=== PATIENT | female | born 1935 | race Caucasian/White ===

== ENCOUNTER → 2023-12-23 09:15 | Outpatient (REF) | payer MEDICARE, BC, SELFPAY | LOC: HWRAD 09:15 | PROVIDERS: ATTENDING PHYSICIAN Family Medicine | DX: M81.0 Age-related osteoporosis without current pathological fracture (principal); M85.80 Other specified disorders of bone density and structure, unspecified site | CPT/HCPCS: 77080 ==

== ENCOUNTER → 2024-02-16 12:12 | Outpatient (REF) | payer MEDICARE, BC, SELFPAY ==
[2024-02-16 13:30] LABS: % Basophils 0.7 % (0-2); % Eosinophils 2.9 % (0-6); % Immature Granulocytes 0.3 % (0-0.5); % Lymphocytes 17.8 % (20.5-51.1); % Monocytes 11.7 % (1.7-9.3); % Neutrophils 66.6 % (42.2-75.2); Absolute Eosinophils 0.2 10^3/uL (0-0.7); Absolute Monocytes 0.7 10^3/uL (0.1-0.6); Absolute Neutrophils 3.9 10^3/uL (1.4-6.5); Hemoglobin 12.6 g/dL (12.0-16.0); Mean Corp Hgb Conc. 33.2 g/dL (33.0-37.0); Mean Corpuscular Hgb 31.3 pg (27.0-31.0); Mean Corpuscular Volume 94.3 fL (81.0-99.0); Mean Platelet Volume 10.7 fL (7.4-10.4); Nucleated Red Blood Cells % 0 %; Platelet Count 175 10^3/uL (130-400); Red Blood Cell Count 4.03 10^6/uL (4.20-5.40); Red Cell Dist. Width 13.2 % (11.5-14.5); White Blood Cell Count 5.8 10^3/uL (4.8-10.8)
[2024-02-16 14:25] LABS: ALT (SGPT) 27 U/L (0-35); AST (SGOT) 33 U/L (14-36); Albumin 4.4 g/dl (3.5-5.0); Alkaline Phosphatase 43 U/L (38-126); Blood Urea Nitrogen 38 mg/dl (7-17); Calcium 9.5 mg/dl (8.4-10.2); Carbon Dioxide 29 mmol/L (22-30); Chloride 103 mmol/L (98-107); Glucose 90 mg/dl (70-99); LDH 194 U/L (120-246); Potassium 4.4 mmol/L (3.5-5.1); Sodium 138 mmol/L (135-145); Total Bilirubin 0.8 mg/dl (0.2-1.3); Total Protein 6.1 g/dl (6.3-8.2); eGFR 43.54
== END ==
LOC: REG 12:12
PROVIDERS: ATTENDING PHYSICIAN Internal Medicine Hematology & Oncology; FAMILY PHYSICIAN Family Medicine
DX: C82.58 Diffuse follicle center lymphoma, lymph nodes of multiple sites (principal); Z45.2 Encounter for adjustment and management of vascular access device
CPT/HCPCS: 36415; 80053; 83615; 85025

== ENCOUNTER → 2024-02-22 12:53 | Outpatient (REF) | payer MEDICARE, BC, SELFPAY | LOC: HWRAD 12:53 | PROVIDERS: ATTENDING PHYSICIAN Family Medicine | DX: M25.552 Pain in left hip (principal) | CPT/HCPCS: 73502 ==

== ENCOUNTER 2024-02-28 07:59 | Inpatient (IN) | payer MEDICARE, BC, SELFPAY ==
[2024-02-26] VITALS (10 sets, daily range): BP systolic 98–141; BP diastolic 51–73; BMI 21.1; BMI 21.2
--- NOTE | 2024-02-26 08:36 | ED.GENMED ---
History of Present Illness
General
Chief Complaint: Extremity Pain (non-traumatic)
Source: patient and family
Time Seen by Provider: 02/26/24 08:13
Travel History
Have you had any contact with someone who has COVID-19?: No
Do you have any symptoms of coronavirus? Fever > 100 degrees, chills, cough, shortness of breath, sore throat, loss of taste or smell, muscle aches, or headache?: No
History of Present Illness
History of Present Illness:
This patient is an 88-year-old female presents emergency department with complaints of pain in the left buttock radiating down her left leg. Her symptoms started on . She does recall on Thursday moving her leg in an unusual position to
get out of a pedicure chair but did not fall to the ground or have any specific injury or trauma and felt well and walked well after that events. However, the next day, , she had a gradual onset of discomfort in the left buttock. She
received her 'maintenance' treatment for Hodgkin's lymphoma and noted about 24 hours of shivering which then resolved fully. However, since she has the gradual onset of increasing pain that is now unmanageable. She describes feeling like
she cannot get comfortable. She denies numbness, tingling, bowel or bladder incontinence, perianal anesthesia, weakness. She notes the pain is 'dull' that will unpredictably become very very sharp. She denies nausea, vomiting, fever, chills,
chest pain, shortness of breath, redness, warmth. Patient is on a DOAC. The pain is mostly in the left buttock or hip area, but then also radiates to involve most of the entire left leg. She was seen at [facility] emergency department
yesterday, had an Ortho consult, CBC, BMP, and x-ray of hip/femur and pelvis, all of which were unremarkable.
Past History
Past History
ED Past Medical History: Arrthythmia (Atrial fib), Cancer (NonHodgkins Lymphoma) and HTN
ED Past Surgical History: Gynecological (Hysterectomy)
Social History
Tobacco: Non-smoker
Alcohol: Occasional
Drug: None
Personal:
Living: with family
Phy Exam
Physical Exam
Physical Exam:
GENERAL: Alert , in no apparent distress
EYE: pupils equal and reactive
NECK: Supple, no significant adenopathy.
ENT: o/p clr, mmm.
CARDIAC: Regular rate and rhythm .
LUNGS: Clear breath sounds bilaterally, no acute respiratory distress, no wheezes/rales/rhonchi
ABDOMEN: Soft, without focal tenderness, no r/g, no cvat
NEUROLOGICAL: Alert and oriented, no focal neuro deficits, neg slr bilat, motor 5/5 sens intact
SKIN: Warm and dry, skin intact. no redness/warmth/rash/abrasion/fluctuance/crepitus or other skin abnl noted L back/buttock/leg.
MUSCULOSKELETAL: No edema, well perfused. There is nonspecific ttp noted at L buttock and L ant thigh area, no deformity, no tissue abnl with palpation noted. Pt has FROM of hip/knee/ankle without hesitation and min discomfort.
PSYCH: Normal and appropriate interaction.
Course
Orders/Labs/Results
Orders:
Orders
02/26/24 08:34
Cardiac Monitoring- Treatment ONCE
Morphine Sulfate 4 mg IV NOW STA
02/26/24 08:59
CPK [Creatine Phosphokinase] Urgent
CRP [C-Reactive Protein] Urgent
Complete Blood Count/With Diff Urgent
Comprehensive Metabolic Panel Urgent
ESR [Erythrocyte Sed Rate] Urgent
02/26/24 09:18
Morphine Sulfate 4 mg .ROUTE .STK-MED ONE
02/26/24 09:19
Morphine Sulfate 4 mg IV NOW STA
02/26/24 09:46
CT Lower Ext W/iv Cont Lt Urgent
Comment:
Reason For Exam: attn: L hip
02/26/24 11:46
Morphine Sulfate 2 mg IV NOW STA
02/26/24 12:16
MR Lumbar Without Contrast Urgent
Comment: Patient refused MRI contrast. Therefore, it was done without contrast.
Reason For Exam: pain
Recent pill cam endoscopy?: No
02/26/24 Dinner
Regular
At Your Request: Full Participation
02/26/24 15:50
Morphine Sulfate 4 mg IV NOW STA
Prednisone [Deltasone] 50 mg PO NOW STA
02/26/24 16:31
Admit/Transfer Patient As Directed
Co-Sign Provider:
Level of Care: Observation services
Assign to:: Medical/Surgical
Physician / Group: Juan Carlos
Transfer to: Medical/Surgical
Diagnosis: LLE Radiculopathy
Patient Condition: Fair
02/26/24 16:34
Code Status As Directed
Resuscitation Status: Full Code
02/26/24 16:37
Urinalysis Stat
Date Specimen was Collected: 02/27/24
Time Specimen was Collected: 03:04
02/26/24 19:34
Acetaminophen [Tylenol] 650 mg PO Q4HPRN PRN
Bisacodyl [Dulcolax] 10 mg RECTAL [id number] PRN
Enoxaparin Sodium [Lovenox] 40 mg SC QPM
Ketorolac [Toradol] 15 mg IV Q6HPRN PRN
Ondansetron Injectable [Zofran] 4 mg IV Q6HPRN PRN
Polyethylene Glycol Powder [Miralax] 17 grams PO DAILYPRN PRN
02/26/24 19:34
Neurosurgery Consult Routine
Consulting Provider: Ana Covington
Was physician already notified: Yes
Reason for Consult: lumbar spinal stenosis
Activity As Directed
Activity Level: As Tolerated
Vital Signs As Directed
Frequency: Per unit guidelines
DX Deep Vein Thrombosis Video Routine
02/26/24 20:00
Apixaban [Eliquis] 2.5 mg PO BID
Docusate Sodium [Colace] 100 mg PO BID
02/26/24 20:10
Morphine Sulfate 4 mg IV Q4HPRN PRN
02/26/24 21:00
Flush (0.9% Sodium Chloride) [Flush (Nss)] See Dose Instructions IV PER PROTOCOL
Metoprolol [Lopressor] 12.5 mg PO BID
02/26/24 22:47
Heparin Pf [Heparin Lock Flush] 500 unit IV PRN PRN
02/27/24 03:08
Urine Microscopic Stat
Date Specimen was Collected: 02/27/24
Time Specimen was Collected: 03:04
02/27/24 06:00
OT Consult [Ot Eval And Treat] IN AM
Physical Therapy Consult [Pt Eval And Treat] IN AM
Activity Level: Ambulate
02/27/24 08:00
Amiodarone [Pacerone] 100 mg PO DAILY
Calcium Carbonate/Vitamin D3 [Oscal 500 + D] 500 mg PO DAILY
Lactobac/Bifidobac [Visbiome] 1 cap PO DAILY
MethylPREDNISolone [Medrol] 24 mg PO ONCE ONE
Potassium Chloride [KCl] 20 meq PO DAILY
Rosuvastatin Calcium [Crestor] 10 mg PO DAILY
Torsemide [Demadex] 20 mg PO DAILY
Vitamin B Complex with C [B COMPLEX w/VITAMIN C] 1 caplet PO DAILY
02/27/24 12:25
Oxycodone [Roxicodone] 5 mg PO Q4HPRN PRN
Tramadol HCl [Ultram] 50 mg PO Q6HPRN PRN
02/27/24 16:00
Acetaminophen [Tylenol] 1,000 mg PO TID
Gabapentin [Neurontin] 100 mg PO TID
02/28/24 05:15
Basic Metabolic Panel IN AM
Complete Blood Count/No Diff IN AM
02/28/24 08:00
Dexamethasone Sod Phosphate [Decadron] 4 mg IV Q6H
MethylPREDNISolone [Medrol] 20 mg PO ONCE ONE
02/29/24 05:09
Basic Metabolic Panel IN AM
Complete Blood Count/No Diff IN AM
02/29/24 08:00
MethylPREDNISolone [Medrol] 16 mg PO ONCE ONE
03/01/24 08:00
MethylPREDNISolone [Medrol] 12 mg PO ONCE ONE
03/01/24 08:03
Basic Metabolic Panel IN AM
Complete Blood Count/No Diff IN AM
03/02/24 08:00
MethylPREDNISolone [Medrol] 8 mg PO ONCE ONE
03/03/24 08:00
MethylPREDNISolone [Medrol] 4 mg PO ONCE ONE
Abnormal Lab Results
02/26/24 02/27/24 02/28/24
08:59 03:08 05:15
WBC 14.8 H 10^3/uL
(4.8-10.8)
RBC 3.78 L 10^6/uL 3.74 L 10^6/uL
(4.20-5.40) (4.20-5.40)
Hgb 11.8 L g/dL 11.6 L g/dL
(12.0-16.0) (12.0-16.0)
Hct 34.5 L % 34.9 L %
(37.0-47.0) (37.0-47.0)
MCH 31.2 H pg
(27.0-31.0)
Absolute Neuts (auto) 8.3 H 10^3/uL
(1.4-6.5)
Absolute Lymphs (auto) 0.7 L 10^3/uL
(1.2-3.4)
Absolute Monos (auto) 1.2 H 10^3/uL
(0.1-0.6)
Neutrophils % 80.9 H %
(42.2-75.2)
Lymphocytes % 6.9 L %
(20.5-51.1)
Monocytes % 11.6 H %
(1.7-9.3)
ESR 27 H mm/hour
(0-20)
Sodium 132 L mmol/L
(135-145)
BUN 21 H mg/dl 33 H mg/dl
(7-17) (7-17)
Glucose 101 H mg/dl 120 H mg/dl
(70-99) (70-99)
C-Reactive Protein 134.20 H mg/L
(0.0-10.00)
Urine Ketones 1+ A
(Negative)
Urine Occult Blood 2+ A
(Negative)
Urine RBC 7-10 A /HPF
(0-2)
Urine Bacteria Moderate A
(Negative)
02/28/24 05:15
02/28/24 05:15
Vital Signs
Initial and Last Documented VS:
Initial Vital Signs
Temp Pulse Resp BP Pulse Ox
98.3 F 85 18 131/63 99
02/26/24 07:04 02/26/24 07:04 02/26/24 07:04 02/26/24 07:04 02/26/24 07:04
Last Documented Vital Signs
Temp Pulse Resp BP Pulse Ox
98.2 F 71 18 92/53 98
03/06/24 11:26 03/06/24 11:26 03/06/24 11:26 03/06/24 11:26 03/06/24 11:26
*Critical Care Note
Total Time (30-74mins, 75-104mins- exclusive of procedures): Not Applicable
Update Note
Update Note:
Patient presents to the Emergency Department with left buttock and leg pain
Number and Complexity of Problems Addressed at the Encounter
� Chronic conditions affecting care:
� Acute Exacerbation and/or Progression of Chronic Illness:
� Differential Diagnosis includes: But not limited to pelvic/hip occult fracture, hematoma, septic arthritis, cancer related pain, etc.
Amount and/or Complexity of Data to be Reviewed and Analyzed
� I performed an independent evaluation of and my interpretation is:
EKG:
CT:1. Status post left hip arthroplasty. Evaluation somewhat limited from patient's prosthesis, however no gross/acute abnormality appreciated. No periprosthetic fractures. No large pleural effusions. No fluid collection
within the adjacent soft tissue.
2. 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 Severe central canal stenosis at L4-5.
3. Moderate amount of fluid seen within the cecum.
Xrays:
Laboratory Studies:crp/esr elevation, wbc nl
Other:mri Limited examination due to motion. Patient refused intravenous contrast.
No finding to suggest an acute fracture. Chronic compression of the superior endplate of T11.
When compared to the previous MRI from 13 years ago there has been increase in degenerative disk and joint disease as outlined above.
Please see above text for specific detail at each level.
Most significant increase in degenerative disk and joint disease is noted at L3-4 and L4-5, with moderate to severe central canal and lateral recess stenosis. Minimal impingement upon the exiting right L3 nerve root and exiting left L4 nerve root.
There is also increased anterior listhesis of L5 on S1, which in combination with increased broad-based disk bulge/protrusion and increased facet arthropathy there is spur disk in the left lateral recess which impinges upon the exiting left L5 and
descending left S1 nerve roots.
No findings to suggest paravertebral inflammation or infection. No adjacent fluid collection. No finding to suggest an abscess or acute process.
Results to Dr. Gonzales in the emergency room at 3:15 PM.
� Review of other/old records reveals: reviewed records from [facility] from yesterday, had xrays/labs.
� Clinical information was obtained by an independent historian: Daughter who is at bedside
� Prescriptions/Medications Considered but not given:
� Further testing considered but not performed:
Risk of Complications and/or Morbidity or Mortality of Patient Management
� Social determinants of health affecting care:
� Discussion with other providers (PCP, Hospitalists, Consultants, etc):
� Escalation of care including admission/observation vs risk of discharge considered: I highly doubt that patient has septic arthritis� No fever noted, she spontaneously moves her left lower extremity with ease and without
hesitation and I am able to actively range her leg without discomfort.
353 multiple reassessments here, long d/w pt and her daughter. I also d/w Dr Cole re:concern re septic arthritis given nonspec crp elevation and immunocomp but he agrees not a concern given rom, mri, location of pain, etc. He suggested LS spine
related dz as a cause, which I agree with...MR does not show osteo/diskitis, however suggestive of nerve impingement which would be very characteristic of quality location of pain etc. Pt getting partial ros with narcotics. Will not be able to
transition her to [facility] with Po meds given AC/fall risk, etc...suggest obs overnight, case managemen tin AM to consider placement, d/w hospitliast.
ED Attending Note
-
Portions of this chart may have been created with voice recognition software.� Occasional wrong word or��sound alike� substitutions may have occurred due to the inherent limitations of voice recognition software.
Discharge Plan
Departure
Patient Disposition: Admit
Date of Disposition: 02/26/24
Time of Disposition: 15:56
Admit to: Med/Surg
Admit to doctor: [place]
Presentation/result/management discussed w/ accepting MD/DO: Hospitalist
Discharge Problem:
Leg pain
Interventions
Interventions:
*General Assessment Last Done: 02/26/24 08:50
*Neglect/Abuse Screening Last Done: 02/26/24 08:50
*Nursing Disposition Last Done: 02/26/24 19:34
ED-Skin Assessment Last Done: 02/26/24 08:51
ED-Peripheral Vascular Assessment Last Done: 02/26/24 09:03
ED-Musculoskeletal Assessment Last Done: 02/26/24 08:51
Discharge Date and Time
Discharge Date/Time: 02/26/24 19:35
[2024-02-26] MEDS: MORPHINE SULFATE 4 MG IV ×4 (08:55→22:42)
[2024-02-26 09:17] LABS: % Basophils 0.2 % (0-2); % Eosinophils 0.1 % (0-6); % Immature Granulocytes 0.3 % (0-0.5); % Lymphocytes 6.9 % (20.5-51.1); % Monocytes 11.6 % (1.7-9.3); % Neutrophils 80.9 % (42.2-75.2); Absolute Lymphocytes 0.7 10^3/uL (1.2-3.4); Absolute Monocytes 1.2 10^3/uL (0.1-0.6); Absolute Neutrophils 8.3 10^3/uL (1.4-6.5); Hematocrit 34.5 % (37.0-47.0); Hemoglobin 11.8 g/dL (12.0-16.0); Mean Corp Hgb Conc. 34.2 g/dL (33.0-37.0); Mean Corpuscular Hgb 31.2 pg (27.0-31.0); Mean Corpuscular Volume 91.3 fL (81.0-99.0); Mean Platelet Volume 9.9 fL (7.4-10.4); Nucleated Red Blood Cells % 0 %; Platelet Count 202 10^3/uL (130-400); Red Blood Cell Count 3.78 10^6/uL (4.20-5.40); Red Cell Dist. Width 12.7 % (11.5-14.5); White Blood Cell Count 10.3 10^3/uL (4.8-10.8)
[2024-02-26 09:27] LABS: ALT (SGPT) 18 U/L (0-35); AST (SGOT) 21 U/L (14-36); Alkaline Phosphatase 63 U/L (38-126); Blood Urea Nitrogen 21 mg/dl (7-17); Calcium 9.5 mg/dl (8.4-10.2); Carbon Dioxide 23 mmol/L (22-30); Chloride 106 mmol/L (98-107); Creatine Phosphokinase 68 U/L (30-135); Estimated Creatinine Clearance 42 ml/min; Glucose 101 mg/dl (70-99); Potassium 4.3 mmol/L (3.5-5.1); Sodium 137 mmol/L (135-145); Total Bilirubin 0.9 mg/dl (0.2-1.3); Total Protein 6.5 g/dl (6.3-8.2); eGFR > 60.00
[2024-02-26 10:42] LABS: Erythrocyte Sed Rate 27 mm/hour (0-20)
[2024-02-26] MEDS: MORPHINE SULFATE 2 MG IV (11:57)
[2024-02-26] MEDS: DELTASONE 50 MG PO (16:08)
--- NOTE | 2024-02-26 16:41 | HPS.HSE ---
Family Physician
-
Family Physician: Maverick Jackson
Chief Complaint
-
Left Buttock and LE pain x Wed 02/16
History of Present Illness
88yo F with PMH HFpEF, Atrial Fibrillation on Eliquis, HTN, HLD, Stage IV Follicular Lymphoma, Chronic Anemia, Hx Left Hip replacement (3yrs ago [address] Monica Badillo) presents to ER from [facility] with c/o left buttock pain
radiating to LLE stopping at ankle. She states 1 week ago she was seated in a pedicure chair and upon sliding her left leg out has had severe 10/10 pain. +numbness/tingling. Denies mid back pain. Pain worse with ambulation. No loss of bowel or
bladder control. No saddle anesthesia. Denies F/C, Dizziness/LH, CP, Palps, wheezing, cough, abd pain, n/v/d/c, dysuria, calf or leg pain.
ER course: Pt presents with V.S.S. ESR 27. CRP 134. BUN/Cr 21/0.8, LFTs wnl. Lumbar MRI as below. S/P 4mg IV morphine, 2mg IV morphine, and Prednisone 50mg PO in ER.
Lumbar spine MRI:
Limited examination due to motion. Patient refused intravenous contrast.
No finding to suggest an acute fracture. Chronic compression of the superior endplate of T11.
When compared to the previous MRI from 13 years ago there has been increase in degenerative disk and joint disease as outlined above.
Please see above text for specific detail at each level.
Most significant increase in degenerative disk and joint disease is noted at L3-4 and L4-5, with moderate to severe central canal and lateral recess stenosis. Minimal impingement upon the exiting right L3 nerve root and exiting left L4 nerve root.
There is also increased anterior listhesis of L5 on S1, which in combination with increased broad-based disk bulge/protrusion and increased facet arthropathy there is spur disk in the left lateral recess which impinges upon the exiting left L5 and
descending left S1 nerve roots.
No findings to suggest paravertebral inflammation or infection. No adjacent fluid collection. No finding to suggest an abscess or acute process.
Medical History
Past Medical History
Past Medical History: Reports Other (HFpEF, Atrial Fibrillation on Eliquis, HTN, HLD, Stage IV Follicular Lymphoma, Chronic Anemia)
Past Surgical History: Reports Other (LON/BSO, Hx Left Hip replacement (3yrs ago [address] Monica Badillo))
Social History
Tobacco: Non-smoker
Alcohol: Occasional (3 glasses of wine a week)
Drug: None
Living: Assisted Living ([facility])
Family History
Family History: Other (Mother: Heart Failure, Father Throat Cancer)
Allergies / Home Medications
Allergies reflects when Allergies were last updated in [employer]Pad.
Home Medications with original date entered in [employer]Pad
Allergy/Medication List:
Allergies
Allergy/AdvReac Type Severity Reaction Status Date / Time
ciprofloxacin Allergy Unknown Unknown Verified 02/26/24 07:10
allopurinol Allergy Rash Verified 12/02/20 09:19
bendamustine [From Bendeka] Allergy Unknown Verified 02/26/24 07:09
povidone-iodine Allergy Rash Verified 12/02/20 09:19
soap Allergy Rash Verified 12/02/20 09:19
Home Medications
apixaban 2.5 mg tablet (Eliquis) 2.5 mg PO BID 12/02/20
metoprolol tartrate 25 mg tablet 12.5 mg PO BID 12/02/20
potassium chloride 20 mEq tablet,extended release(part/cryst) (Klor-Con M) 20 meq PO DAILY 12/02/20
rosuvastatin 5 mg tablet 10 mg PO DAILY 12/02/20
torsemide 20 mg tablet 20 mg PO DAILY 12/02/20
Lactobac no.2-Bifidobac no.1-S. thermo 112.5 billion cell capsule (Visbiome) 1 cap PO DAILY 02/26/24
Req-Q Womens 1 tab PO DAILY 02/26/24
Res-Q 1 cap PO DAILY 02/26/24
Uqora 1 cap PO DAILY uti 02/26/24
amiodarone 100 mg tablet 100 mg PO DAILY 02/26/24
calcium carbonate 500 mg-vitamin D3 10 mcg (400 unit) tablet (Calcium 500 + D) 1 tab PO DAILY 02/26/24
coQ10 (ubiquinol) 100 mg capsule 100 mg PO DAILY 02/26/24
ibandronate 150 mg tablet 150 mg PO QMONTH 02/26/24
ziuejzts-[id number]-zzpvz extract 5 mg-6 mg-150 mg capsule (Fruit and Vegetable Daily) 1 cap PO DAILY 02/26/24
vitamin B complex 1 tab PO DAILY 02/26/24
Review of Systems
-
A 12 point ROS was completed and negative except as noted: Yes
Physical Exam
Vital Signs
Vital Signs
Temp Pulse Resp BP Pulse Ox
98.3 F 85 16 120/60 94
02/26/24 07:04 02/26/24 13:06 02/26/24 13:06 02/26/24 16:00 02/26/24 16:00
Physical Exam
General: Well Developed, Well Nourished and No Apparent Distress
HEENT: NormoCephalic, Moist mucous membranes and Atraumatic
Respiratory: Clear
Cardiac: S1/S2 and Regular Rhythm; No Murmur or Rub
GI: Soft, Non Tender, Non Distended and Normal Bowel Sounds; No Organomegaly
Rectal: Deferred by Provider
Musculoskeletal: No Clubbing, No Cyanosis and No Edema
Skin: No Rash
Neuro: Awake, Alert, Oriented, AO x 3 and Other (MSK UE 5/5 throughout. MSK RLE 5/5. MSK LLE 3/5. +Left SLR. +TTP Left Buttock/Psoas)
Hematologic/Lymphatic: No Lymphadenopathy
Psych: Calm
Laboratory Results
-
02/26/24 08:59
02/26/24 08:59
Laboratory Results
Total Bilirubin 0.9 mg/dl (0.2-1.3) 02/26/24 08:59
AST 21 U/L (14-36) 02/26/24 08:59
ALT 18 U/L (0-35) 02/26/24 08:59
Alkaline Phosphatase 63 U/L (38-126) 02/26/24 08:59
Data Reviewed
-
Diagnostic Radiology: Image Personally Visualized and interpreted
CT Scan: Image Personally Visualized and interpreted
MRI: Image Personally Visualized and interpreted
Lab Data: Labs Reviewed by me
Old Records: Reviewed
Impression/Plan
-
Acute LLE Pain
- Sciatica vs Left Lumbar Radiculopathy. +SLR on left. CRP 134. ESR 27.
- MRI L spine:
No finding to suggest an acute fracture. Chronic compression of the superior endplate of T11.
When compared to the previous MRI from 13 years ago there has been increase in degenerative disk and joint disease as outlined above.
Please see above text for specific detail at each level.
Most significant increase in degenerative disk and joint disease is noted at L3-4 and L4-5, with moderate to severe central canal and lateral recess stenosis. Minimal impingement upon the exiting right L3 nerve root and exiting left L4 nerve root.
There is also increased anterior listhesis of L5 on S1, which in combination with increased broad-based disk bulge/protrusion and increased facet arthropathy there is spur disk in the left lateral recess which impinges upon the exiting left L5 and
descending left S1 nerve roots.
No findings to suggest paravertebral inflammation or infection. No adjacent fluid collection. No finding to suggest an abscess or acute process.
- S/P 6mg IV morphine and 50mg po prednisone in ER
- Will continue Prn Tylenol, Toradol, and 4mg IV Q4h prn morphine. Start Medrol dose pack
- Consult PT/OT
- Consult Neurosurgery for any further recs
HFpEF
- TTE 04/2023 with EF 62%, Stage II diastolic dysfunction
- Examines euvolemic
- Continue home torsemide, BB
Atrial Fibrillation
- Sinus on exam
- Continue home BB, Amiodarone, and Eliquis
HTN/HLD - BP stable on home BB/ Continue home statin.
Chronic Anemia - Hgb 11.8 g/dL. Stable. Follow trends.
Hx Stage IV Follicular Lymphoma
- Pt endorses recurrence last year. Continue management with Dr. Zee Perdomo at [facility]
DVT PPx - Lovenox
Diet - Regular
Code Status: Full
--- NOTE | 2024-02-26 16:46 | CM ---
Addendum entered by Sushma Godoy RN 02/26/24 17:15:
CM spoke with patient's son who stated that patient is able to pay out of pocket for [facility] if needed. CM discussed [place] letter and emailed to son. CM encouraged son to consider alternative SNF in the even [facility] does not have a bed
available. Son deferred that as he felt there was further work up pending.
CM will continue to follow
Original Note:
CM received call from Bernice at [facility]. Family called her regarding placement from the emergency room. CM confirmed that patient will be brought into the hospital. CM had an extended conversation with patient's daughter who was upset
regarding possible OBSERVATION status. SHe stated that patient has insurance to cover SNF stay. CM confirmed that patient had FFS Medicare and would require a three day inpatient stay for Medicare to cover patient's SNF stay.
CM confirmed that patient has been placed under observation. Patient's daughter stated that she feels CM should speak with patient's son to discuss discharge planning further. CM will await call from patient's son.
--- NOTE | 2024-02-26 20:00 | PTCARENOTE ---
Pt. admitted from [facility] AAO x 3, vs stable, call clements within reach.
[2024-02-26] MEDS: COLACE 100 MG PO (22:40)
[2024-02-26] MEDS: ELIQUIS 2.5 MG PO (22:40)
[2024-02-26] MEDS: LOPRESSOR 12.5 MG PO (22:40)
[2024-02-26] MEDS: FLUSH (NSS) 2 FLUSH IV (22:43)
[2024-02-27 03:21] LABS: Urine Albumin Trace (Neg - Trace); Urine Bilirubin Negative (Negative); Urine Character Clear (Clear); Urine Color Yellow; Urine Glucose Negative (Negative); Urine Ketone 1+ (Negative); Urine Leukocyte Negative (Negative); Urine Nitrite Negative (Negative); Urine Occult Blood 2+ (Negative); Urine Specific Gravity 1.015 (<1.030); Urine Urobilinogen Negative (Neg - 1+)
[2024-02-27 04:00] LABS: Urine Bacteria Moderate (Negative); Urine Squamous Cell 0-2 /LPF (Few)
[2024-02-27 06:00] VITALS: BMI 21.1
[2024-02-27 08:37] VITALS: BP 153/67
[2024-02-27] MEDS: DEMADEX 20 MG PO (09:27)
[2024-02-27] MEDS: CRESTOR 10 MG PO (09:27)
[2024-02-27] MEDS: B COMPLEX w/VITAMIN C 1 CAPLET PO (09:27)
[2024-02-27] MEDS: COLACE 100 MG PO ×2 (09:27→23:17)
[2024-02-27 09:31] VITALS: BP 136/59; PULSE 81
[2024-02-27] MEDS: KCL 20 MEQ PO (09:31)
[2024-02-27] MEDS: LOPRESSOR 12.5 MG PO ×2 (09:31→23:13)
[2024-02-27] MEDS: ELIQUIS 2.5 MG PO (09:31)
[2024-02-27 09:32] VITALS: BP 136/59; PULSE 81
[2024-02-27] MEDS: OSCAL 500 + D 500 MG PO (09:32)
[2024-02-27] MEDS: PACERONE 100 MG PO (09:32)
[2024-02-27] MEDS: VISBIOME 1 CAP PO (09:33)
[2024-02-27] MEDS: MEDROL 24 MG PO (09:33)
[2024-02-27] MEDS: MORPHINE SULFATE 4 MG IV (09:41)
--- NOTE | 2024-02-27 12:09 | W.PN.HOSP.TC ---
Today's Communication/Plan
-
upgrade IP status
pain control as outlined
PT/OT
Assessment / Plan
Assessment / Plan
Assessment:
Acute LLE Pain
- Sciatica vs Left Lumbar Radiculopathy. +SLR on left. CRP 134. ESR 27.
- MRI L spine: DJD, no fractures. Most significant increase in degenerative disk and joint disease is noted at L3-4 and L4-5, with moderate to severe central canal and lateral recess stenosis. Minimal impingement upon the exiting right L3 nerve
root and exiting left L4 nerve root. There is also increased anterior listhesis of L5 on S1, which in combination with increased broad-based disk bulge/protrusion and increased facet arthropathy there is spur disk in the left lateral recess which
impinges upon the exiting left L5 and descending left S1 nerve roots. No findings to suggest paravertebral inflammation or infection. No adjacent fluid collection. No finding to suggest an abscess or acute process.
- requiring many doses of IV Morphine,
- will make Tylenol standing + prn, Tramadol moderate, oxycodone severe
- add low dose gabapentin
- continue steroids
- PT/OT - SNF
- follow Neuro Surgery recs
chronic HFpEF
- TTE 04/2023 with EF 62%, Stage II diastolic dysfunction
- Examines euvolemic
- Continue home torsemide, BB
Atrial Fibrillation
- Sinus on exam
- Continue home BB, Amiodarone, and Eliquis
Essential HTN - continue BB
HLD - continue statin.
Chronic Anemia - Hgb 11.8 g/dL. Stable. Follow trends.
Hx Stage IV Follicular Lymphoma
- Pt endorses recurrence last year. Continue management with Dr. Zee Perdomo at [facility]
DVT ppx: Lovenox
Code Status: Full
Anticipated Discharge: > 48 hours
Subjective/Interval History
-
Date of Service: February 27, 2024
reports pain improving, but concerned with IV pain med usage, wants to wean off
Objective Data
-
Vital Signs:
Vital Signs
Temp Pulse Resp BP Pulse Ox
98.1 F 79 18 153/67 96
02/27/24 08:37 02/27/24 08:37 02/27/24 08:37 02/27/24 08:37 02/27/24 08:37
I&O
02/26/24 02/27/24 02/28/24
06:59 06:59 06:59
Intake Total 480 / 480
Output Total 50 / 50
Balance 430 / 430
Physical Exam
-
General: No Apparent Distress
HEENT: Normocephalic and Atraumatic
Respiratory: Negative Wheezes or Rales
Cardiac: Regular Rhythm and S1/S2
GI: Soft and Nontender
Genito-urinary: No Costovertebral Tender
Musculoskeletal: No Edema
Neuro: AO x 3 and Other (+Left SLR. +TTP Left Buttock/Psoas)
Psych: Calm
Data Reviewed
-
Total Time Spent with Patient (in minutes): 44
Labs: Labs Reviewed by me
[2024-02-27 13:59] VITALS: BMI 21.1
[2024-02-27 15:00] VITALS: BP 139/67
[2024-02-27] MEDS: NEURONTIN 100 MG PO ×2 (15:09→23:14)
[2024-02-27] MEDS: TYLENOL 1000 MG PO ×2 (15:09→23:13)
[2024-02-27 16:07] VITALS: BP 139/67
--- NOTE | 2024-02-27 17:24 | CON.NS ---
Consultation
-
Date/Time Consultation Performed: 02/27/2024; 17:30
Performing Provider: Adria
Chief Complaint
History of Present Illness
This is an 88-year-old female with a past medical history of heart failure, atrial fibrillation on Eliquis, hypertension, stage IV follicular lymphoma, who presents from her assisted living facility with acute onset of left buttock pain, left lower
extremity radiculopathy. She reports that it stated 1 week prior when she was trying to get up from a pedicure chair. She reports numbness and tingling in the same distribution. She denies any obvious weakness. She denies any bowel or bladder
changes, or saddle anesthesia.
Review of Systems
-
10 point review of systems including constitutional, ENT, cardiovascular, respiratory, GI, , endocrinologic, hematologic, neurologic, psychiatric, musculoskeletal was reviewed, and was otherwise negative, except for stated in HPI.
Medication and Allergies
Home Medications
Home Medications
�Medication �Instructions �Recorded
apixaban 2.5 mg tablet (Eliquis) 2.5 mg PO BID Blood Clot 12/02/20
Prevention/Tx
metoprolol tartrate 25 mg tablet 12.5 mg PO BID Blood Pressure 12/02/20
potassium chloride 20 mEq 20 meq PO DAILY Electrolyte 12/02/20
tablet,extended Repletion
release(part/cryst) (Klor-Con M)
rosuvastatin 5 mg tablet 10 mg PO DAILY High Cholesterol 12/02/20
torsemide 20 mg tablet 20 mg PO DAILY Fluid 12/02/20
Retention/Swelling
Lactobac no.2-Bifidobac no.1-S. 1 cap PO DAILY probiotic 02/26/24
thermo 112.5 billion cell capsule
(Visbiome)
Req-Q Womens 1 tab PO DAILY Supplement 02/26/24
Res-Q 1 cap PO DAILY Supplement 02/26/24
Uqora 1 cap PO DAILY urinary tract health 02/26/24
amiodarone 100 mg tablet 100 mg PO DAILY Arrhythmia 02/26/24
calcium carbonate 500 mg-vitamin 1 tab PO DAILY Supplement 02/26/24
D3 10 mcg (400 unit) tablet
(Calcium 500 + D)
coQ10 (ubiquinol) 100 mg capsule 100 mg PO DAILY Supplement 02/26/24
ibandronate 150 mg tablet 150 mg PO QMONTH osteoporosis 02/26/24
iizpwifz-vpqykw-grqqb extract 5 1 cap PO DAILY Supplement 02/26/24
mg-6 mg-150 mg capsule (Fruit and
Vegetable Daily)
vitamin B complex 1 tab PO DAILY Supplement 02/26/24
Allergies
Allergies
Allergy/AdvReac Type Severity Reaction Status Date / Time
allopurinol Allergy Rash Verified 12/02/20 09:19
bendamustine [From Bendeka] Allergy Unknown Verified 02/26/24 07:09
ciprofloxacin Allergy Unknown Verified 02/26/24 20:04
povidone-iodine Allergy Rash Verified 12/02/20 09:19
soap Allergy Rash Verified 12/02/20 09:19
Physical Exam
-
Exam:
Awake, alert, no apparent distress
Cranial nerves II to XII are grossly intact
Motor: 5/5 strength in bilateral upper extremities, no pronator drift. 3/5 strength in left EHL, otherwise full strength in lower extremities in all other muscle groups.
Head is normocephalic atraumatic.
Neck is supple.
Breathing nonlabored.
Pulses palpable.
Abdomen nondistended nontender.
Gait: Antalgic gait, ambulates with walker.
MRI of the lumbar spine performed on 02/26/2024 was reviewed. At L5-S1, there is evidence of cysts soft tissue noted within the left L5-S1 neuroforamen/lateral recess. This appears to be T2 hypointense. Differential diagnosis may be disc
extrusion/herniation versus synovial cyst?
Problems
-
Problem Status Onset Code
Leg pain M79.606
Assessment / Plan
-
This is an 88-year-old female who presents with over 1 week history of acute onset of left lower extremity radiculopathy. On my review of the MRI of the lumbar spine, there is evidence of a soft tissue within the left L5-S1 Lateral recess,
suspicious for disc extrusion/synovial cyst. Radiology has been contacted for further review of this.
I reviewed management options with her. This included ongoing conservative treatment by means of pain control, anti-inflammatories, physical therapy, possible epidural steroid injections. Lastly, I also discussed surgical intervention, by means of
left L5-S1 hemilaminectomy/foraminotomy for decompression of nerve root. Given her left EHL weakness, this is reasonable as well, provide she is able to get cleared medically/cardiac.
She expresses interest in surgical intervention, but would like to discuss first with her family. In the interim, recommend dexamethasone 4 mg every 6 hours x 24 hours to see if this will improve her symptoms.
Discussed with hospital medicine.
Patient can go home per my specialty: No
[2024-02-27 23:32] VITALS: BP 114/59
[2024-02-28] MEDS: ROXICODONE 5 MG PO (02:02)
[2024-02-28 05:36] LABS: Hematocrit 34.9 % (37.0-47.0); Hemoglobin 11.6 g/dL (12.0-16.0); Mean Corp Hgb Conc. 33.2 g/dL (33.0-37.0); Mean Corpuscular Volume 93.3 fL (81.0-99.0); Mean Platelet Volume 9.7 fL (7.4-10.4); Platelet Count 209 10^3/uL (130-400); Red Blood Cell Count 3.74 10^6/uL (4.20-5.40); Red Cell Dist. Width 12.6 % (11.5-14.5); White Blood Cell Count 14.8 10^3/uL (4.8-10.8)
[2024-02-28 05:47] VITALS: BMI 21.1
[2024-02-28 06:18] LABS: Blood Urea Nitrogen 33 mg/dl (7-17); Calcium 9.2 mg/dl (8.4-10.2); Carbon Dioxide 28 mmol/L (22-30); Chloride 99 mmol/L (98-107); Estimated Creatinine Clearance 34 ml/min; Glucose 120 mg/dl (70-99); Potassium 4.3 mmol/L (3.5-5.1); Sodium 132 mmol/L (135-145); eGFR 54.19
[2024-02-28 07:18] VITALS: BP 147/74
[2024-02-28] MEDS: COLACE 100 MG PO ×2 (09:08→20:42)
[2024-02-28] MEDS: B COMPLEX w/VITAMIN C 1 CAPLET PO (09:08)
[2024-02-28] MEDS: KCL 20 MEQ PO (09:09)
[2024-02-28] MEDS: DECADRON 4 MG IV ×3 (09:09→20:42)
[2024-02-28] MEDS: NEURONTIN 100 MG PO ×3 (09:09→22:19)
[2024-02-28] MEDS: CRESTOR 10 MG PO (09:09)
[2024-02-28] MEDS: DEMADEX 20 MG PO (09:09)
[2024-02-28] MEDS: LOPRESSOR 12.5 MG PO ×2 (09:09→20:41)
[2024-02-28] MEDS: PACERONE 100 MG PO (09:10)
[2024-02-28] MEDS: VISBIOME 1 CAP PO (09:10)
[2024-02-28] MEDS: OSCAL 500 + D 500 MG PO (09:10)
[2024-02-28] MEDS: TYLENOL 1000 MG PO ×3 (09:10→22:19)
[2024-02-28] MEDS: MIRALAX 17 GRAMS PO (11:45)
--- NOTE | 2024-02-28 13:20 | W.PN.HOSP.TC ---
Today's Communication/Plan
-
Onc and Cards evals routinely Thursday for pre-op eval
tentative OR Thursday pending OR availability, d/w Dr. Covington
Assessment / Plan
Assessment / Plan
Assessment:
Acute LLE Pain
- Sciatica vs Left Lumbar Radiculopathy. +SLR on left. CRP 134. ESR 27.
- MRI L spine: DJD, no fractures. Most significant increase in degenerative disk and joint disease is noted at L3-4 and L4-5, with moderate to severe central canal and lateral recess stenosis. Minimal impingement upon the exiting right L3 nerve
root and exiting left L4 nerve root. There is also increased anterior listhesis of L5 on S1, which in combination with increased broad-based disk bulge/protrusion and increased facet arthropathy there is spur disk in the left lateral recess which
impinges upon the exiting left L5 and descending left S1 nerve roots. No findings to suggest paravertebral inflammation or infection. No adjacent fluid collection. No finding to suggest an abscess or acute process.
- requiring many doses of IV Morphine,
- will make Tylenol standing + prn, Tramadol moderate, oxycodone severe
- add low dose gabapentin
- continue steroids
- PT/OT - SNF
- patient agrees for surgical intervention - left L5-S1 hemilaminectomy/foraminotomy for decompression of nerve root - earliest date Thursday
chronic HFpEF
Atrial Fibrillation
- TTE 04/2023 with EF 62%, Stage II diastolic dysfunction
- Examines euvolemic. sinus on tele
- Continue home torsemide, BB, Amio
- holding Eliquis
- CBC cards consult for pre-op assessment
Essential HTN - continue BB
HLD - continue statin.
Chronic Anemia - Hgb 11.8 g/dL. Stable. Follow trends.
Hx Stage IV Follicular Lymphoma
- Pt endorses recurrence last year. Continue management with Dr. Zee Perdomo at [facility]
- Neuro Sx requesting onc eval for pre-op assessment.
DVT ppx: Lovenox
Code Status: Full
Anticipated Discharge: > 48 hours
Subjective/Interval History
-
Date of Service: February 28, 2024
pain controlled with IV steroids, pain meds, Neurontin
has agreed to surgery
Objective Data
-
Labs:
Laboratory Results
02/28/24
05:15
WBC 14.8 H
Hgb 11.6 L
Hct 34.9 L
Plt Count 209
Sodium 132 L
Potassium 4.3
Chloride 99
Carbon Dioxide 28
BUN 33 H
Creatinine 1.0
Glucose 120 H
Calcium 9.2
Vital Signs:
Vital Signs
Temp Pulse Resp BP Pulse Ox
99.4 F 100 24 147/74 93
02/28/24 07:18 02/28/24 07:18 02/28/24 07:18 02/28/24 07:18 02/28/24 09:00
I&O
02/27/24 02/28/24 02/29/24
06:59 06:59 06:59
Intake Total 480 / 480 1440 / 1440
Output Total 50 / 50
Balance 430 / 430 1440 / 1440
Physical Exam
-
General: No Apparent Distress
HEENT: Normocephalic and Atraumatic
Respiratory: Negative Wheezes or Rales
Cardiac: Regular Rhythm and S1/S2
GI: Soft and Nontender
Neuro: AO x 3
Psych: Calm
Data Reviewed
-
Total Time Spent with Patient (in minutes): 42
Labs: Labs Reviewed by me
[2024-02-28 15:10] VITALS: BP 126/88
[2024-02-28 22:30] VITALS: BP 119/71
[2024-02-29] VITALS (7 sets, daily range): BP systolic 100–151; BP diastolic 57–81; PULSE 65–70; O2SAT 95–97; BMI 21.0
[2024-02-29] MEDS: DECADRON 4 MG IV (02:12)
[2024-02-29 05:20] LABS: Hematocrit 35.5 % (37.0-47.0); Hemoglobin 11.9 g/dL (12.0-16.0); Mean Corp Hgb Conc. 33.5 g/dL (33.0-37.0); Mean Corpuscular Hgb 31.2 pg (27.0-31.0); Mean Corpuscular Volume 93.2 fL (81.0-99.0); Mean Platelet Volume 10.1 fL (7.4-10.4); Platelet Count 214 10^3/uL (130-400); Red Blood Cell Count 3.81 10^6/uL (4.20-5.40); Red Cell Dist. Width 12.4 % (11.5-14.5); White Blood Cell Count 15.3 10^3/uL (4.8-10.8)
[2024-02-29 06:01] LABS: Blood Urea Nitrogen 36 mg/dl (7-17); Calcium 9.2 mg/dl (8.4-10.2); Carbon Dioxide 25 mmol/L (22-30); Chloride 100 mmol/L (98-107); Estimated Creatinine Clearance 37 ml/min; Glucose 151 mg/dl (70-99); Potassium 4.8 mmol/L (3.5-5.1); Sodium 133 mmol/L (135-145); eGFR > 60.00
[2024-02-29] MEDS: CRESTOR 10 MG PO (09:00)
[2024-02-29] MEDS: B COMPLEX w/VITAMIN C 1 CAPLET PO (09:00)
[2024-02-29] MEDS: DEMADEX 20 MG PO (09:00)
[2024-02-29] MEDS: KCL 20 MEQ PO (09:00)
[2024-02-29] MEDS: COLACE 100 MG PO ×2 (09:00→20:59)
[2024-02-29] MEDS: OSCAL 500 + D 500 MG PO (09:01)
[2024-02-29] MEDS: PACERONE 100 MG PO (09:01)
[2024-02-29] MEDS: LOPRESSOR 12.5 MG PO ×2 (09:01→20:59)
[2024-02-29] MEDS: NEURONTIN 100 MG PO ×3 (09:01→20:59)
[2024-02-29] MEDS: MIRALAX 17 GRAMS PO (09:02)
[2024-02-29] MEDS: VISBIOME 1 CAP PO (09:02)
[2024-02-29] MEDS: TYLENOL 1000 MG PO ×3 (09:02→20:59)
[2024-02-29] MEDS: DECADRON 2 MG IV ×2 (09:02→17:06)
--- NOTE | 2024-02-29 10:22 | CON.CAR ---
Consultation
Consultation Request
Date/Time Consultation Requested: 02/29/24, 8am
Date/Time Consultation Performed: 02/29/24, 9am
Requesting Provider: Pedro
Performing Provider: Janice
Reason for Consultation: pre op assessement
Medical History
-
Chief Complaint: severe LLE pain
History of Present Illness:
88 yo female with PMH of mitral regurgitation, chonic HFPEF, paroxysmal A fib on eliquis, 1st degree, iRBBB, hyperlipidemia, follicular lymphoma on mini R-CHOP (active therapy) is admitted with severe LLE pain.
We are consulted for pre-op risk assessment for left L5-S1 hemilaminectomy/foraminotomy for decompression of nerve root.
She is a very active and independent 88yo, who looks much younger that her age. Prior to issues with leg pain, she was doing yoga, walking without limitation, and up to 3 flights of stairs without CP/SOB.
She denies edema, dizziness, syncope, palps.
Past Medical History
Past Medical History: Arrhythmias (paroxyxmal A fib), Cancer (follicular lymphoma), CHF (chronic HFPEF), Hypercholesterolemia, Valvular Disease (mitral regurgitation) and Other (1st degree AVB, iRBBB)
Past Surgical History: Gynecological (hysterectomy)
Social History
Tobacco: Non-Smoker
Family History
Family History: CAD (mother)
Allergies / Home Medications
Allergy/AdvReac Type Severity Reaction Status Date / Time
allopurinol Allergy Rash Verified 12/02/20 09:19
bendamustine [From Bendeka] Allergy Unknown Verified 02/26/24 07:09
ciprofloxacin Allergy Unknown Verified 02/26/24 20:04
povidone-iodine Allergy Rash Verified 12/02/20 09:19
soap Allergy Rash Verified 12/02/20 09:19
�Medication �Instructions �Recorded �Confirmed �Type
apixaban 2.5 mg tablet (Eliquis) 2.5 mg PO BID Blood Clot 12/02/20 02/26/24 History
Prevention/Tx
metoprolol tartrate 25 mg tablet 12.5 mg PO BID Blood Pressure 12/02/20 02/26/24 History
potassium chloride 20 mEq 20 meq PO DAILY Electrolyte 12/02/20 02/26/24 History
tablet,extended Repletion
release(part/cryst) (Klor-Con M)
rosuvastatin 5 mg tablet 10 mg PO DAILY High Cholesterol 12/02/20 02/26/24 History
torsemide 20 mg tablet 20 mg PO DAILY Fluid 12/02/20 02/26/24 History
Retention/Swelling
Lactobac no.2-Bifidobac no.1-S. 1 cap PO DAILY probiotic 02/26/24 02/26/24 History
thermo 112.5 billion cell capsule
(Visbiome)
Req-Q Womens 1 tab PO DAILY Supplement 02/26/24 02/26/24 History
Res-Q 1 cap PO DAILY Supplement 02/26/24 02/26/24 History
Uqora 1 cap PO DAILY urinary tract health 02/26/24 02/26/24 History
amiodarone 100 mg tablet 100 mg PO DAILY Arrhythmia 02/26/24 02/26/24 History
calcium carbonate 500 mg-vitamin 1 tab PO DAILY Supplement 02/26/24 02/26/24 History
D3 10 mcg (400 unit) tablet
(Calcium 500 + D)
coQ10 (ubiquinol) 100 mg capsule 100 mg PO DAILY Supplement 02/26/24 02/26/24 History
ibandronate 150 mg tablet 150 mg PO QMONTH osteoporosis 02/26/24 02/26/24 History
tzsezmow-hzncpt-axmts extract 5 1 cap PO DAILY Supplement 02/26/24 02/26/24 History
mg-6 mg-150 mg capsule (Fruit and
Vegetable Daily)
vitamin B complex 1 tab PO DAILY Supplement 02/26/24 02/26/24 History
Review of Systems
-
History Source: Patient
All other systems: Negative unless noted
Musculoskeletal: Other (LLE pain)
Physical Exam
Vital Signs
Temp Pulse Resp BP Pulse Ox
98.1 F 79 16 122/67 95
02/29/24 07:30 02/29/24 07:30 02/29/24 07:30 02/29/24 07:30 02/29/24 07:30
Lab Results
02/29/24 05:09
02/29/24 05:09
Physical Exam
General: No Apparent Distress and Comfortable
HEENT: Normocephalic and Anicteric
Respiratory: Clear and Non Labored Respirations
Cardiac: S1/S2 (normal), Regular Rhythm, Murmur (II/IV systolic at apex) and Peripheral Edema (none)
Breast: Deferred by me
GI: Soft, Non Tender and Non Distended
Rectal: Deferred by Provider
Musculoskeletal: No Clubbing, No Cyanosis and No Edema
Skin: Warm and Dry
Neuro: AO x 3
Psych: Calm
Impression / Plan
-
88 yo female with PMH of mitral regurgitation, chonic HFPEF, paroxysmal A fib on eliquis, 1st degree, iRBBB, hyperlipidemia, follicular lymphoma on mini R-CHOP (active therapy) is admitted with severe LLE pain.
We are consulted for pre-op risk assessment for left L5-S1 hemilaminectomy/foraminotomy for decompression of nerve root.
#Pre-op risk assessment
-She is a very active and independent 88yo, who looks much younger that her age. Prior to issues with leg pain, she was doing yoga, walking without limitation, and up to 3 flights of stairs without CP/SOB.
-echo 09/28/23: EF 60-65%, GLS-19.9%, mild/moderate MR, nl RV, moderate TR
-NSQIP: risk of cardiac complication or is 0.3% (acceptable)
-I am not recommending a stress test prior to OR
-elqiuis is on hold and can be resumed as soon as safe post op; continue metoprolol without interruption
-we will see her again post op
# Paroxysmal A fib
-in sinus (with 1st degree AVB, iRBBB) on amiodarone 100mg daily, and metoprolol tartrate 12.5mg bid
-CHADS2-VASC = 4. Eliquis on hold for OR.
-monitor on tele
# Chronic HFPEF
-stable, euvolemic
-cont torsemide 20mg daily
# Mitral regurgitation
-severe in past, and now on diuretic, with last echo showing mild/moderate MR
# Hyperlipidemia
-stable, continue crestor
# Follicular lymphoma
-mini R-CHOP (active therapy)
-port in place
-normal LVEF and GLS on echo 09/2023
Data Reviewed
-
EKG: Tracing Personally Visualized and interpreted (NSR, 1st degree AVB, iRBBB)
Medical Tests (Nuc Med, Echo etc): Report Reviewed by me (echo per note) and Discussed with Patient
Labs: Labs Reviewed by me
--- NOTE | 2024-02-29 10:36 | CON.ONC ---
Impression
Impression
Hx follicular lymphoma with relapse 04/2023, now s/p R-mini-CHOP, continuing on maintenance Rituxan
Elevated CRP
Leukocytosis attributable to steroids (WBC normal on 02/15)
Afib on Eliquis
Plan
Plan
She does not have the elevated lymphocyte count that has previously been a feature of disease recurrence.
However, with recent night sweats and CRP elevation noted, recommend CT C/A/P now to exclude disease progression.
Thank you for consult, will follow along with you.
Patient History
History of Present Illness
88 yo woman well known to me from outpt setting for history of follicular lymphoma. She was treated in 2017 with Bendeka/Rituxan followed by 2 years' maintenance Rituxan. She relapsed this past summer with marked lymphocytosis, night sweats and
significant progression on scan. She was treated with R-mini-CHOP from April-August 2023 with restaging PET 09/29/23 showing improved disease. She got maintenance Rituxan 11/26 and 02/17. About a week after most recent Rituxan she noted onset of
severe back pain with imaging showing significant degenerative disease. Surgery is planned with routine Heme/Onc clearance requested. Labs this admission include CRP of 134 representing marked elevation. She admits to night sweats last week and
earlier this week. Denies swollen glands, fatigue, malaise, unintentional weight loss, loss of appetite. Separately, she is on Eliquis 2.5 BID for afib, no DVT/PE history.
Past-Medical/Surgical History
PMHx:
Follicular lymphoma
Afib
PSHx:
Port
LON/BSO 1984
Patient Medication
�Medication �Instructions �Recorded �Confirmed �Last Taken �Type
apixaban 2.5 mg tablet (Eliquis) 2.5 mg PO BID Blood Clot 12/02/20 02/26/24 02/26/24 History
Prevention/Tx
metoprolol tartrate 25 mg tablet 12.5 mg PO BID Blood Pressure 12/02/20 02/26/24 02/26/24 History
potassium chloride 20 mEq 20 meq PO DAILY Electrolyte 12/02/20 02/26/24 02/26/24 History
tablet,extended Repletion
release(part/cryst) (Klor-Con M)
rosuvastatin 5 mg tablet 10 mg PO DAILY High Cholesterol 12/02/20 02/26/24 02/26/24 History
torsemide 20 mg tablet 20 mg PO DAILY Fluid 12/02/20 02/26/24 02/25/24 History
Retention/Swelling
Lactobac no.2-Bifidobac no.1-S. 1 cap PO DAILY probiotic 02/26/24 02/26/24 Unknown History
thermo 112.5 billion cell capsule
(Visbiome)
Req-Q Womens 1 tab PO DAILY Supplement 02/26/24 02/26/24 Unknown History
Res-Q 1 cap PO DAILY Supplement 02/26/24 02/26/24 Unknown History
Uqora 1 cap PO DAILY urinary tract health 02/26/24 02/26/24 Unknown History
amiodarone 100 mg tablet 100 mg PO DAILY Arrhythmia 02/26/24 02/26/24 02/26/24 History
calcium carbonate 500 mg-vitamin 1 tab PO DAILY Supplement 02/26/24 02/26/24 Unknown History
D3 10 mcg (400 unit) tablet
(Calcium 500 + D)
coQ10 (ubiquinol) 100 mg capsule 100 mg PO DAILY Supplement 02/26/24 02/26/24 Unknown History
ibandronate 150 mg tablet 150 mg PO QMONTH osteoporosis 02/26/24 02/26/24 Unknown History
lafhfbdp-obcrku-whkwh extract 5 1 cap PO DAILY Supplement 02/26/24 02/26/24 Unknown History
mg-6 mg-150 mg capsule (Fruit and
Vegetable Daily)
vitamin B complex 1 tab PO DAILY Supplement 02/26/24 02/26/24 Unknown History
Active Medications
Generic Name Dose Route Start Last Admin
Trade Name Freq PRN Reason Stop Dose Admin
Acetaminophen 650 mg 02/26/24 19:34
Acetaminophen 325 Mg Tablet PO 03/25/24 19:33
Q4HPRN PRN
mild pain/FISCHER/temp> 100.4F
Acetaminophen 1,000 mg 02/27/24 16:00 02/29/24 09:02
Acetaminophen 500 Mg Tablet PO 03/26/24 15:59 1,000 mg
TID MEGHANN Administration
Amiodarone HCl 100 mg 02/27/24 08:00 02/29/24 09:01
Amiodarone 100 Mg Tablet PO 03/26/24 07:59 100 mg
DAILY MEGHANN Administration
Apixaban 2.5 mg 02/26/24 20:00 02/27/24 09:31
Apixaban (Eliquis) 2.5 Mg Tablet PO 03/25/24 19:59 2.5 mg
BID MEGHANN Administration
Bisacodyl 10 mg 02/26/24 19:34
Bisacodyl 10 Mg Rectal Suppository RECTAL 03/25/24 19:33
[id number] PRN
constipation
Calcium/Vitamin D 500 mg 02/27/24 08:00 02/29/24 09:01
Calcium Carbonate 500 Mg/Vitamin D 5 Mcg (200 Units) Tablet PO 03/26/24 07:59 500 mg
DAILY MEGHANN Administration
Dexamethasone Sodium Phosphate 2 mg 02/29/24 10:00 02/29/24 09:02
Dexamethasone 4 Mg/Ml 1 Ml Vial IV 03/28/24 09:59 2 mg
Q8H MEGHANN Administration
Docusate Sodium 100 mg 02/26/24 20:00 02/29/24 09:00
Docusate Sodium 100 Mg Capsule PO 03/25/24 19:59 100 mg
BID MEGHANN Administration
Gabapentin 100 mg 02/27/24 16:00 02/29/24 09:01
Gabapentin 100 Mg Capsule PO 03/26/24 15:59 100 mg
TID MEGHANN Administration
Heparin Sodium (Porcine) 500 unit 02/26/24 22:47 04/15/24 09:02
Heparin Flush Pf (100 Unit/Ml) 5 Ml Syringe IV 03/25/24 22:46 500 unit
PRN PRN Administration
PORT FLUSH
Lactobacillus/Bifidobacterium 1 cap 02/27/24 08:00 02/29/24 09:02
Lactobac/Bifidobac (Visbiome) PO 03/26/24 07:59 1 cap
DAILY MEGHANN Administration
Metoprolol Tartrate 12.5 mg 02/26/24 21:00 02/29/24 09:01
Metoprolol 12.5 Mg Regular Release Dose (1/2 Of 25 Mg Tablet) PO 03/25/24 20:59 12.5 mg
BID MEGHANN Administration
Ondansetron HCl 4 mg 02/26/24 19:34
Ondansetron 4 Mg/2 Ml Vial IV 03/25/24 19:33
Q6HPRN PRN
nausea and vomiting
Oxycodone HCl 5 mg 02/27/24 12:25 02/28/24 02:02
Oxycodone 5 Mg Regular Release Tablet PO 03/12/24 12:24 5 mg
Q4HPRN PRN Administration
severe pain
Polyethylene Glycol 17 grams 02/26/24 19:34 02/29/24 09:02
Polyethylene Glycol Powder 17 Grams Packet PO 03/25/24 19:33 17 grams
DAILYPRN PRN Administration
constipation
Potassium Chloride 20 meq 02/27/24 08:00 02/29/24 09:00
Potassium Chloride 20 Meq Extended Release Tablet PO 03/26/24 07:59 20 meq
DAILY MEGHANN Administration
Rosuvastatin Calcium 10 mg 02/27/24 08:00 02/29/24 09:00
Rosuvastatin (Crestor) 5 Mg Tablet PO 03/26/24 07:59 10 mg
DAILY MEGHANN Administration
Sodium Chloride 0 flush 02/26/24 21:00 02/26/24 22:43
Sodium Chloride 0.9% (Flush) Syringe IV 03/25/24 20:59 2 flush
PER PROTOCOL MEGHANN Administration
Torsemide 20 mg 02/27/24 08:00 02/29/24 09:00
Torsemide 20 Mg Tablet PO 03/26/24 07:59 20 mg
DAILY MEGHANN Administration
Tramadol HCl 50 mg 02/27/24 12:25
Tramadol Hcl 50 Mg Tablet PO 03/26/24 12:24
Q6HPRN PRN
moderate pain
Vitamin B Complex/Vitamin C 1 caplet 02/27/24 08:00 02/29/24 09:00
Vitamin B Complex With Vitamin C Caplet PO 03/26/24 07:59 1 caplet
DAILY MEGHANN Administration
Review of Systems
-
History Source: Patient, Physician and Records
Constitutional: Reports Night Sweats; Denies Fever, Weight Loss or Fatigue
EENT: Reports No Symptoms
Respiratory: Reports No Symptoms
Cardiac: Reports No Symptoms
GI: Reports No Symptoms
Breast: Reports No Symptoms
: Reports No Symptoms
Musculoskeletal: Reports Other (Back pain)
Skin: Reports No Symptoms
Endocrine: Reports No Symptoms
Hematologic/Lymphatic: Reports No Symptoms
Allergy / Immunology: Reports No Symptoms
Psych: Reports No Symptoms
Physical Exam
-
General: Well Developed, Well Nourished and Other (Appears young for stated age)
HEENT: Moist Mucous Membranes; Negative Jaundice
Cardiology: Normal Sinus Rhythm, S1 and S2
Pulmonary: Clear; Negative Wheezes
GI: Soft and Normal Bowel Sounds
Musculoskeletal: No Clubbing, No Cyanosis and No Edema
Extremities: No C/C/E; Negative Edema
Neurology: Non Focal
Skin: Warm and Dry
Hematologic / Lymphatic: No Lymphadenopathy and No Petechiae
Psych: Calm and Intact Judgement/Insight
Labs
Lab Results
WBC 15.3 10^3/uL (4.8-10.8) H 02/29/24 05:09
RBC 3.81 10^6/uL (4.20-5.40) L 02/29/24 05:09
Hgb 11.9 g/dL (12.0-16.0) L 02/29/24 05:09
Hct 35.5 % (37.0-47.0) L 02/29/24 05:09
MCV 93.2 fL (81.0-99.0) 02/29/24 05:09
MCH 31.2 pg (27.0-31.0) H 02/29/24 05:09
MCHC 33.5 g/dL (33.0-37.0) 02/29/24 05:09
RDW 12.4 % (11.5-14.5) 02/29/24 05:09
Plt Count 214 10^3/uL (130-400) 02/29/24 05:09
MPV 10.1 fL (7.4-10.4) 02/29/24 05:09
Abs Immat Gran (auto) 0.0 10^3/uL (0-0.05) 02/26/24 08:59
Absolute Neuts (auto) 8.3 10^3/uL (1.4-6.5) H 02/26/24 08:59
Absolute Lymphs (auto) 0.7 10^3/uL (1.2-3.4) L 02/26/24 08:59
Absolute Monos (auto) 1.2 10^3/uL (0.1-0.6) H 02/26/24 08:59
Absolute Eos (auto) 0.0 10^3/uL (0-0.7) 02/26/24 08:59
Absolute Basos (auto) 0.0 10^3/uL (0-0.2) 02/26/24 08:59
Immature Gran % 0.3 % (0-0.5) 02/26/24 08:59
Neutrophils % 80.9 % (42.2-75.2) H 02/26/24 08:59
Lymphocytes % 6.9 % (20.5-51.1) L 02/26/24 08:59
Monocytes % 11.6 % (1.7-9.3) H 02/26/24 08:59
Eosinophils % 0.1 % (0-6) 02/26/24 08:59
Basophils % 0.2 % (0-2) 02/26/24 08:59
Creatinine 0.9 mg/dL (0.6-1.0) 02/29/24 05:09
Vital Signs
Vital Signs
Temp Pulse Resp BP Pulse Ox
98.1 F 79 16 122/67 95
02/29/24 07:30 02/29/24 07:30 02/29/24 07:30 02/29/24 07:30 02/29/24 09:00
--- NOTE | 2024-02-29 10:58 | PN.NS ---
Subjective
-
Patient seen examined. Reports that the steroids has only minimally helped with her left lower extremity pain. She is interested in proceeding with surgical intervention for
Physical Exam
-
Exam:
Exam:
Awake, alert, no apparent distress
Cranial nerves II to XII are grossly intact
Motor: 5/5 strength in bilateral upper extremities, no pronator drift. 3/5 strength in left EHL, otherwise full strength in lower extremities in all other muscle groups.
Head is normocephalic atraumatic.
Neck is supple.
Breathing nonlabored.
Pulses palpable.
Abdomen nondistended nontender.
Gait: Antalgic gait, ambulates with walker.
MRI of the lumbar spine performed on 02/26/2024 was reviewed. At L5-S1, there is evidence of cysts soft tissue noted within the left L5-S1 neuroforamen/lateral recess. This appears to be T2 hypointense. Differential diagnosis may be disc
extrusion/herniation versus synovial cyst? Imaging was reviewed with radiology, Dr. Wero Chen, on 02/27/2024 who reviewed the MRI scan, does concur that findings at the left L5-S1 neuroforamen can be consistent with disc extrusion/sequestered
disc versus synovial cyst less likely.
Problems
-
Problem Status Onset Code
Leg pain M79.606
Assessment / Plan
-
This is an 88-year-old female who presents with over 1 week history of acute onset of left lower extremity radiculopathy. On my review of the MRI of the lumbar spine, there is evidence of a soft tissue within the left L5-S1 Lateral recess,
suspicious for disc extrusion/synovial cyst. Radiologist on-call reviewed the imaging studies, and they concur with my imaging findings.
She wishes to proceed with surgical intervention by means of left L5-S1 Jacques laminectomy/foraminotomy for decompression of left L5-S1 nerve root. Reviewed the imaging with radiology, Dr. Chen, who concurs with my review and findings.
I discussed with her that likely surgery has been preemptively scheduled for 03/02/2024. Cardiology clearance appreciated.
Patient reports that she is also been having night sweats, which in the past has been consistent with disease recurrence. She informs me that her oncologist, Dr. Perdomo, has ordered a CT of the abdomen pelvis to further evaluate. Appreciate
oncology clearance/input.
Discussed with hospital medicine.
Patient can go home per my specialty: No
Today's Communication
-
Discussed with hospital medicine
--- NOTE | 2024-02-29 12:14 | W.PN.HOSP.TC ---
Today's Communication/Plan
-
continue IV steroids
CT per Onc
monitor tele
OR Thursday planned
Assessment / Plan
Assessment / Plan
Assessment:
Acute LLE Pain
- Sciatica vs Left Lumbar Radiculopathy. +SLR on left. CRP 134. ESR 27.
- MRI L spine: DJD, no fractures. Most significant increase in degenerative disk and joint disease is noted at L3-4 and L4-5, with moderate to severe central canal and lateral recess stenosis. Minimal impingement upon the exiting right L3 nerve
root and exiting left L4 nerve root. There is also increased anterior listhesis of L5 on S1, which in combination with increased broad-based disk bulge/protrusion and increased facet arthropathy there is spur disk in the left lateral recess which
impinges upon the exiting left L5 and descending left S1 nerve roots. No findings to suggest paravertebral inflammation or infection. No adjacent fluid collection. No finding to suggest an abscess or acute process.
- requiring many doses of IV Morphine,
- will make Tylenol standing + prn, Tramadol moderate, oxycodone severe
- add low dose gabapentin
- continue steroids, IV per NeuroSurg
- PT/OT - SNF
- patient agrees for surgical intervention - left L5-S1 hemilaminectomy/foraminotomy for decompression of nerve root on 03/02/24
chronic HFpEF
Parox Atrial Fibrillation
Mitral regurgitation
- TTE 04/2023 with EF 62%, Stage II diastolic dysfunction
- Examines euvolemic. sinus on tele
- Continue home torsemide, BB, Amio
- holding Eliquis
- appreciate CBC cards pre-op assessment
Essential HTN - continue BB
HLD - continue statin.
Chronic Anemia - Hgb 11.8 g/dL. Stable. Follow trends.
Hx Stage IV Follicular Lymphoma
- Pt endorses recurrence last year. Continue management with Dr. Zee Perdomo at [facility]
- on mini-R-CHOP via PORT previously, now on Rituxan
- Onc following; appreciate pre-op evaluation
- CT abdomen ordered for symptoms of night sweats
DVT ppx: Lovenox
Code Status: Full
Anticipated Discharge: > 48 hours
Subjective/Interval History
-
Date of Service: February 29, 2024
agreed to surgery yesterday
no complaints today
Objective Data
-
Labs:
Laboratory Results
02/29/24
05:09
WBC 15.3 H
Hgb 11.9 L
Hct 35.5 L
Plt Count 214
Sodium 133 L
Potassium 4.8
Chloride 100
Carbon Dioxide 25
BUN 36 H
Creatinine 0.9
Glucose 151 H
Calcium 9.2
Vital Signs:
Vital Signs
Temp Pulse Resp BP Pulse Ox
98.1 F 79 16 122/67 95
02/29/24 07:30 02/29/24 07:30 02/29/24 07:30 02/29/24 07:30 02/29/24 09:00
I&O
02/28/24 02/29/24 03/01/24
06:59 06:59 06:59
Intake Total 1440 / 1440 700 / 700
Balance 1440 / 1440 700 / 700
Physical Exam
-
General: No Apparent Distress
HEENT: Normocephalic and Atraumatic
Respiratory: Negative Wheezes or Rales
Cardiac: Regular Rhythm and S1/S2
GI: Soft
Musculoskeletal: No Edema
Neuro: AO x 3
Psych: Calm
Data Reviewed
-
Total Time Spent with Patient (in minutes): 41
Labs: Labs Reviewed by me
[2024-02-29] MEDS: PEPCID 20 MG IV (23:49)
[2024-02-29] MEDS: NSS (PRESERVATIVE FREE) 8 ML IV (23:49)
[2024-02-29] MEDS: FLUSH (NSS) 2 FLUSH IV (23:50)
[2024-03-01] MEDS: DECADRON 2 MG IV ×3 (02:38→17:00)
[2024-03-01] MEDS: FLUSH (NSS) 2 FLUSH IV (02:39)
[2024-03-01 02:47] VITALS: BMI 20.8
[2024-03-01] MEDS: ROXICODONE 5 MG PO ×2 (03:49→20:09)
[2024-03-01 04:00] VITALS: BP 159/73
[2024-03-01 07:00] VITALS: BP 161/88
[2024-03-01] MEDS: OMNIPAQUE 50 ML PO (07:43)
[2024-03-01] MEDS: TYLENOL 1000 MG PO ×3 (07:44→22:31)
[2024-03-01] MEDS: B COMPLEX w/VITAMIN C 1 CAPLET PO (07:44)
[2024-03-01] MEDS: CRESTOR 10 MG PO (07:44)
[2024-03-01] MEDS: LOPRESSOR 12.5 MG PO ×2 (07:44→20:09)
[2024-03-01] MEDS: VISBIOME 1 CAP PO (07:45)
[2024-03-01] MEDS: NEURONTIN 100 MG PO ×3 (07:45→22:32)
[2024-03-01] MEDS: COLACE 100 MG PO ×2 (07:45→20:09)
[2024-03-01] MEDS: OSCAL 500 + D 500 MG PO (07:46)
[2024-03-01] MEDS: KCL 20 MEQ PO (07:46)
[2024-03-01] MEDS: DEMADEX 20 MG PO (07:47)
[2024-03-01] MEDS: PACERONE 100 MG PO (07:47)
[2024-03-01 08:25] LABS: Hematocrit 37.8 % (37.0-47.0); Hemoglobin 12.5 g/dL (12.0-16.0); Mean Corp Hgb Conc. 33.1 g/dL (33.0-37.0); Mean Corpuscular Hgb 30.9 pg (27.0-31.0); Mean Corpuscular Volume 93.3 fL (81.0-99.0); Mean Platelet Volume 10.1 fL (7.4-10.4); Platelet Count 295 10^3/uL (130-400); Red Blood Cell Count 4.05 10^6/uL (4.20-5.40); Red Cell Dist. Width 12.5 % (11.5-14.5); White Blood Cell Count 21.9 10^3/uL (4.8-10.8)
[2024-03-01 09:34] LABS: Blood Urea Nitrogen 35 mg/dl (7-17); Calcium 9.4 mg/dl (8.4-10.2); Carbon Dioxide 28 mmol/L (22-30); Chloride 98 mmol/L (98-107); Estimated Creatinine Clearance 37 ml/min; Glucose 140 mg/dl (70-99); Potassium 4.6 mmol/L (3.5-5.1); Sodium 133 mmol/L (135-145); eGFR > 60.00
--- NOTE | 2024-03-01 09:49 | W.PN.CD ---
Today's Communication / Plan
-
No new recommendations
She is stable and we will follow up post-op
Impression / Plan
-
88 yo female with PMH of mitral regurgitation, chonic HFPEF, paroxysmal A fib on eliquis, 1st degree, iRBBB, hyperlipidemia, follicular lymphoma on mini R-CHOP (active therapy) is admitted with severe LLE pain.
We are consulted for pre-op risk assessment for left L5-S1 hemilaminectomy/foraminotomy for decompression of nerve root.
#Pre-op risk assessment
-She is a very active and independent 88yo, who looks much younger that her age. Prior to issues with leg pain, she was doing yoga, walking without limitation, and up to 3 flights of stairs without CP/SOB.
-echo 09/28/23: EF 60-65%, GLS-19.9%, mild/moderate MR, nl RV, moderate TR
-NSQIP: risk of cardiac complication or is 0.3% (acceptable)
-I am not recommending a stress test prior to OR
-Eliquis is on hold and can be resumed as soon as safe post op; continue metoprolol without interruption
-we will see her again post op
# Paroxysmal A fib
-in sinus (with 1st degree AVB, iRBBB) on amiodarone 100mg daily, and metoprolol tartrate 12.5mg bid
-CHADS2-VASC = 4. Eliquis on hold for OR.
-monitor on tele
# Chronic HFPEF
-stable, euvolemic
-cont torsemide 20mg daily
# Mitral regurgitation
-severe in past, and now on diuretic, with last echo showing mild/moderate MR
# Hyperlipidemia
-stable, continue crestor
# Follicular lymphoma
-mini R-CHOP (active therapy)
-port in place
-normal LVEF and GLS on echo 09/2023
Physical Exam
Vital Signs/Labs
Vital Signs
Temp Pulse Resp BP Pulse Ox
98.3 F 72 17 161/88 100
03/01/24 07:00 03/01/24 07:00 03/01/24 07:00 03/01/24 07:00 03/01/24 07:00
02/29/24 03/01/24 03/02/24
06:59 06:59 06:59
Actual Weight 122 lb 121 lb 1 oz
03/01/24 08:03
03/01/24 08:03
Physical Exam
Constitutional: No acute distress
Cardiovascular: Rhythm & rate is regular and Pedal edema is absent
Respiratory: Respiratory effort normal and Lungs clear to auscul.
GI: Soft
Neuro/Psych: AO x 3
Data Reviewed
-
Date of Service: March 01, 2024
EKG: Tracing Personally Visualized and interpreted (SR )
Echo: Report Reviewed by me
Labs: Labs Reviewed by me
--- NOTE | 2024-03-01 10:52 | W.PN.HOSP.TC ---
Today's Communication/Plan
-
continue IV steroids
left L5-S1 hemilaminectomy/foraminotomy for decompression of nerve root on 03/02/24
Assessment / Plan
Assessment / Plan
Assessment:
Acute LLE Pain
- Sciatica vs Left Lumbar Radiculopathy. +SLR on left. CRP 134. ESR 27.
- MRI L spine: DJD, no fractures. Most significant increase in degenerative disk and joint disease is noted at L3-4 and L4-5, with moderate to severe central canal and lateral recess stenosis. Minimal impingement upon the exiting right L3 nerve
root and exiting left L4 nerve root. There is also increased anterior listhesis of L5 on S1, which in combination with increased broad-based disk bulge/protrusion and increased facet arthropathy there is spur disk in the left lateral recess which
impinges upon the exiting left L5 and descending left S1 nerve roots. No findings to suggest paravertebral inflammation or infection. No adjacent fluid collection. No finding to suggest an abscess or acute process.
- requiring many doses of IV Morphine,
- will make Tylenol standing + prn, Tramadol moderate, oxycodone severe
- continue low dose gabapentin
- continue steroids, IV per NeuroSurg
- patient agrees for surgical intervention - left L5-S1 hemilaminectomy/foraminotomy for decompression of nerve root on 03/02/24
- PT/OT - SNF eventually
chronic HFpEF
Parox Atrial Fibrillation
Mitral regurgitation
- TTE 04/2023 with EF 62%, Stage II diastolic dysfunction
- Examines euvolemic. sinus on tele
- Continue home torsemide, BB, Amio
- holding Eliquis
- appreciate CBC cards pre-op assessment
Essential HTN - continue BB
HLD - continue statin.
Chronic Anemia - Hgb 11.8 g/dL. Stable. Follow trends.
Hx Stage IV Follicular Lymphoma
- Pt endorses recurrence last year. Continue management with Dr. Zee Perdomo at [facility]
- on mini-R-CHOP via PORT previously, now on Rituxan
- Onc following; appreciate pre-op evaluation
- CT C/A/P with no reported lymphadenopathy
DVT ppx: Lovenox
Code Status: Full
Anticipated Discharge: > 48 hours
Subjective/Interval History
-
Date of Service: March 01, 2024
back pain, persistent at a low level
for OR tomorrow
Objective Data
-
Labs:
Laboratory Results
03/01/24
08:03
WBC 21.9 H
Hgb 12.5
Hct 37.8
Plt Count 295 D
Sodium 133 L
Potassium 4.6
Chloride 98
Carbon Dioxide 28
BUN 35 H
Creatinine 0.9
Glucose 140 H
Calcium 9.4
Vital Signs:
Vital Signs
Temp Pulse Resp BP Pulse Ox
98.3 F 72 17 161/88 100
03/01/24 07:00 03/01/24 07:00 03/01/24 07:00 03/01/24 07:00 03/01/24 07:00
I&O
02/29/24 03/01/24 03/02/24
06:59 06:59 06:59
Intake Total 700 / 700 1530 / 1530
Balance 700 / 700 1530 / 1530
Physical Exam
-
General: No Apparent Distress
HEENT: Normocephalic and Atraumatic
Respiratory: Negative Wheezes or Rales
Cardiac: Regular Rhythm and S1/S2
GI: Soft
Musculoskeletal: No Edema
Neuro: AO x 3
Psych: Calm
Data Reviewed
-
Total Time Spent with Patient (in minutes): 41
Labs: Labs Reviewed by me
[2024-03-01 11:00] VITALS: BP 118/73
--- NOTE | 2024-03-01 11:21 | PN.CDI ---
CDI
- -
CDI:
Physician Documentation Request
Admit Date: 02/28/24 07:59
Dear Doctor Pedro,
Patient admitted with herniated disc.
Laboratory Tests
02/28/24 02/29/24 03/01/24
05:15 05:09 08:03
Sodium 132 L 133 L 133 L
Based on the above, could you clarify in the progress notes, the appropriate diagnosis, if significant, that supports the above abnormalities and additional evaluation, monitoring and/or treatment rendered:
Hyponatremia
Abnormal lab value insignificant
Other
Use of terms such as suspected, likely, concern for, or probable (associated with a specific diagnosis that is being evaluated, monitored, or treated as if it exists) are acceptable and can be coded in the inpatient setting, when documented at the
time of discharge.
Thank you,
Tere Donohue RN, BSN
CDI Specialist
Available via [facility] text
Please use your independent medical judgment in providing your response.
--- NOTE | 2024-03-01 11:38 | CM ---
Chart reviewed and patient is for possible OR, per patient and son Romulo Paulino [phone] they would like skilled placement at [facility] as patient lives at [facility], [facility] in [place] and [facility] in [place].
Plan; After surgery layla will need PT/OT evaluations and then possible skilled placement.
--- NOTE | 2024-03-01 14:31 | W.PN.ONC ---
Today's Communication / Plan
-
CT CAP showed no signs of lymphoma recurrence
Proceed w/ neurosurg as planned
She has f/u with Dr. Perdomo in April
Will sign off, please call w/ any questions
Impression
Impression
Hx follicular lymphoma with relapse 04/2023, now s/p R-mini-CHOP, continuing on maintenance Rituxan
Elevated CRP
Leukocytosis attributable to steroids (WBC normal on 02/15)
Afib on Eliquis
Plan
Plan
CT CAP showed no signs of lymphoma recurrence
Proceed w/ neurosurg as planned
She has f/u with Dr. Predomo in April
Will sign off, please call w/ any questions
Subjective/Objective
Subjective/Objective
some night sweats, perhaps from steroids
Vital Signs:
Vital Signs
Temp Pulse Resp BP Pulse Ox
97.6 F 71 17 118/73 96
03/01/24 11:00 03/01/24 11:00 03/01/24 11:00 03/01/24 11:00 03/01/24 11:00
Lab Results:
Laboratory Data
WBC 21.9 10^3/uL (4.8-10.8) H 03/01/24 08:03
Hgb 12.5 g/dL (12.0-16.0) 03/01/24 08:03
Plt Count 295 10^3/uL (130-400) D 03/01/24 08:03
eGFR > 60.00 03/01/24 08:03
[2024-03-01 20:32] VITALS: BP 127/77
[2024-03-01 23:26] VITALS: BP 131/67
[2024-03-02] VITALS (14 sets, daily range): BP systolic 91–188; BP diastolic 56–105; BMI 21.0
[2024-03-02] MEDS: DECADRON 2 MG IV ×2 (02:00→09:25)
--- NOTE | 2024-03-02 04:45 | DOWNTIME ---
There was a [facility] Client Director Physical Therapy Downtime on 03/02/2024 from 0100 to 03/02/2024 at 0439. Downtime documentation of patient's care, including medication administrations, has been reconciled in the electronic record per guidelines. Refer to the
patient's paper chart under the miscellaneous tab to see printed paper medication records and downtime forms.
[2024-03-02 05:44] LABS: Hematocrit 35.8 % (37.0-47.0); Hemoglobin 12.1 g/dL (12.0-16.0); Mean Corp Hgb Conc. 33.8 g/dL (33.0-37.0); Mean Corpuscular Hgb 31.1 pg (27.0-31.0); Platelet Count 261 10^3/uL (130-400); Red Blood Cell Count 3.89 10^6/uL (4.20-5.40); Red Cell Dist. Width 12.8 % (11.5-14.5); White Blood Cell Count 17.3 10^3/uL (4.8-10.8)
[2024-03-02] MEDS: ROXICODONE 5 MG PO (06:04)
[2024-03-02 06:38] LABS: Blood Urea Nitrogen 37 mg/dl (7-17); Calcium 9.4 mg/dl (8.4-10.2); Carbon Dioxide 31 mmol/L (22-30); Chloride 98 mmol/L (98-107); Estimated Creatinine Clearance 37 ml/min; Glucose 144 mg/dl (70-99); Potassium 4.5 mmol/L (3.5-5.1); Sodium 134 mmol/L (135-145); eGFR > 60.00
[2024-03-02] MEDS: CRESTOR 10 MG PO (07:45)
[2024-03-02] MEDS: KCL 20 MEQ PO (07:45)
[2024-03-02] MEDS: B COMPLEX w/VITAMIN C 1 CAPLET PO (07:46)
[2024-03-02] MEDS: PACERONE 100 MG PO (07:46)
[2024-03-02] MEDS: DEMADEX 20 MG PO (07:46)
[2024-03-02] MEDS: OSCAL 500 + D 500 MG PO (07:46)
[2024-03-02] MEDS: TYLENOL 1000 MG PO ×2 (07:47→22:11)
[2024-03-02] MEDS: LOPRESSOR 12.5 MG PO ×2 (07:47→20:39)
[2024-03-02] MEDS: TYLENOL PO (07:48)
[2024-03-02] MEDS: NEURONTIN 100 MG PO ×2 (07:48→22:11)
[2024-03-02] MEDS: COLACE 100 MG PO ×2 (07:48→20:39)
[2024-03-02] MEDS: VISBIOME 1 CAP PO (07:48)
--- NOTE | 2024-03-02 12:27 | W.PN.HOSP.TC ---
Addendum entered and electronically signed by Linda Vasquez MD 03/02/24 12:30:
hyponatremia
Original Note:
Today's Communication/Plan
-
OR today
Assessment / Plan
Assessment / Plan
Assessment:
Acute LLE Pain
- Sciatica vs Left Lumbar Radiculopathy. +SLR on left. CRP 134. ESR 27.
- MRI L spine: DJD, no fractures. Most significant increase in degenerative disk and joint disease is noted at L3-4 and L4-5, with moderate to severe central canal and lateral recess stenosis. Minimal impingement upon the exiting right L3 nerve root
and exiting left L4 nerve root. There is also increased anterior listhesis of L5 on S1, which in combination with increased broad-based disk bulge/protrusion and increased facet arthropathy there is spur disk in the left lateral recess which
impinges upon the exiting left L5 and descending left S1 nerve roots. No findings to suggest paravertebral inflammation or infection. No adjacent fluid collection. No finding to suggest an abscess or acute process.
- requiring many doses of IV Morphine
- will make Tylenol standing + prn, Tramadol moderate, oxycodone severe
- continue low dose gabapentin
- continue steroids, IV per NeuroSurg
- patient agrees for surgical intervention - left L5-S1 hemilaminectomy/foraminotomy for decompression of nerve root on 03/02/24
- PT/OT - SNF eventually
chronic HFpEF
Parox Atrial Fibrillation
Mitral regurgitation
- TTE 04/2023 with EF 62%, Stage II diastolic dysfunction
- Examines euvolemic. sinus on tele
- Continue home torsemide, BB, Amio
- holding Eliquis
- appreciate CBC cards pre-op assessment
Essential HTN - continue BB
HLD - continue statin.
Chronic Anemia - Hgb 11.8 g/dL. Stable. Follow trends.
Hx Stage IV Follicular Lymphoma
- Pt endorses recurrence last year. Continue management with Dr. Zee Perdomo at [facility]
- on mini-R-CHOP via PORT previously, now on Rituxan
- Onc following; appreciate pre-op evaluation
- CT C/A/P with no reported lymphadenopathy
DVT ppx: Lovenox
Code Status: Full
Anticipated Discharge: > 48 hours
Subjective/Interval History
-
Date of Service: March 02, 2024
no new complaints
for OR today
Objective Data
-
Labs:
Laboratory Results
03/02/24
05:32
WBC 17.3 H
Hgb 12.1
Hct 35.8 L
Plt Count 261
Sodium 134 L
Potassium 4.5
Chloride 98
Carbon Dioxide 31 H
BUN 37 H
Creatinine 0.9
Glucose 144 H
Calcium 9.4
Vital Signs:
Vital Signs
Temp Pulse Resp BP Pulse Ox
97.9 F 63 16 127/61 94
03/02/24 12:02 03/02/24 12:02 03/02/24 12:02 03/02/24 12:02 03/02/24 12:02
I&O
03/01/24 03/02/24 03/03/24
06:59 06:59 06:59
Intake Total 1530 / 1530 840 / 840
Balance 1530 / 1530 840 / 840
Physical Exam
-
General: No Apparent Distress
HEENT: Normocephalic and Atraumatic
Respiratory: Negative Wheezes or Rales
Cardiac: Regular Rhythm and S1/S2
GI: Soft and Nontender
Genito-urinary: No Costovertebral Tender
Neuro: AO x 3
Hematologic / Lymphatic: No Lymphadenopathy
Psych: Calm
Data Reviewed
-
Total Time Spent with Patient (in minutes): 41
Labs: Labs Reviewed by me
--- NOTE | 2024-03-02 16:19 | CM ---
Patient seen bedside with daughter, reports she will transferring to a private room. Patient for OR today, will need PT/OT evaluations for SNF, [facility] first choice as patient resides at [facility]. CM will continue to follow for discharge
planning needs.
Plan; will need SNF, first choice [facility], once PT/OT evaluations.
[2024-03-02] MEDS: NEURONTIN PO (17:00)
--- NOTE | 2024-03-02 17:21 | OR.RPT ---
Operative Report
Operative Report
Date of procedure: 03/02/2024
Preoperative diagnosis: Left L5/S1 radiculopathy, left L5/S1 soft tissue lesion
Postoperative diagnosis: Left L5-S1 epidural abscess
Procedure: 1. Left L5-S1 hemilaminectomy, foraminotomy
2.evacuation of epidural abscess.
3. Decompression of left S1 nerve root.
4. Utilization of intraoperative microscope.
5. Interpretation of intraoperative fluoroscopy.
Surgeon: Ana Covington MD
Asst: IVAN Magallanes
Anesthesia: GETA
Anesthesiologist: MD Darin
Findings: Left L5-S1 spondylolisthesis, with compression of the nerve root, due to facet hypertrophy, ligamentum flavum thickening. Upon performing left L5-S1 hemilaminectomy and foraminotomies, creamy, yellowish, material was expressed in moderate
amount. This was cultured.
Estimated blood loss: 35 mL
Complications: None
Disposition: Extubated, transferred to the PACU in stable condition
Indications for the procedure: This is an 88-year-old female who presented with approximately 1 week history of significant left lower extremity radiculopathy. She reported that she felt immediate onset of back pain when she was getting off of a
pedicure chair. On examination, she had left foot drop, with significant extensor hallicus longus weakness: She has a past medical history significant for lymphoma, and does have a port with chemotherapy infusions. She was also on Eliquis, which
was held for this procedure. She was seen by oncology, and had a CT of the chest/abdomen/pelvis which did not demonstrate any obvious evidence of progression of disease. She did have elevated CRP, and reported night sweats. Given her foot drop,
and findings of large soft tissue lesion within the left lateral recess of left L5-S1, she was deemed a candidate for surgical decompression. I discussed with the patient, and her family, all risks, benefits, indications for the procedure. I also
discussed nonoperative management. Risks discussed, but not limited to were bleeding, infection, injury to arteries, nerves, vessels, CSF leak, need for further procedures, failure to provide diagnosis, failure to improve symptoms, recurrence of
symptoms. She expressed understanding this, and gave consent to proceed.
Description of the procedure: Patient was brought into the operating room after consents were obtained. She was induced under general endotracheal anesthesia. She was then carefully positioned from the supine position to the prone position onto an
Desean table. Special care was taken to ensure that all pressure points including her eyes, chin, ulna, knees, chest, groin were appropriately padded. 1010 drape was placed over the gluteal fold. Fluoroscopic C-arm was brought in to localize the
L5-S1 level on the skin. A small midline incision was marked on the skin. This area was then carefully prepped and draped in standard surgical fashion. After appropriate timeout was obtained, local anesthetic was infiltrated to the marked
incision. Using a 10 blade, an incision was made through the skin. Subcutaneous dissection was then carried down to the fascia using Bovie electrocautery. A unilateral incision along the spinous process was made at the L5-S1 level using Bovie
electrocautery. Subperiosteal dissection was then carried out to the L5, and S1 hemilamina on the left. We then localized intraoperatively using the fluoroscopic C-arm. The Resendiz retractors were then carefully placed to retract the
subfascial musculature laterally. The microscope was then brought in for appropriate visualization. Using the [employer] matched head homa drill, hemilaminectomy was then performed, by removing the inferior half of the L5 lamina, and the superior
half of the S1 lamina. Large facet arthropathy was noted, this was sent off for specimen. Using 2, and 3 mm Kerrison punch rongeurs, the hemilaminectomy was extended out to foraminotomy. At this point, Mendoza 4 dissector was then placed to
dissect laterally within the lateral recess. Almost immediately, we noted creamy white thick purulent appearing fluid. This was then immediately cultured. We did continue to explore this lateral recess both rostrally and caudally, and additional
purulent material was expressed. I then proceeded with extending the having laminectomy down over the S1 foramina caudally. I then inspected inferiorly, using a Gates dissector, and did not note any additional purulent material. The disc space
was not entered into.
At this point the wound was irrigated with normal saline irrigation. Hemostasis was then achieved using surgical hemostatic material. 1 g of vancomycin powder was then sprinkled into the cavity in all layers. I then moved the microscope out of
the field, and elected to close. Additional local anesthetic was then infiltrated to the subfascial musculature. The fascia was then reapproximated using interrupted 0 Vicryl sutures. Subcutaneous fatty layer was then reapproximated using
interrupted inverted 2-0 Vicryl sutures. The subdermis and epidermis was then reapproximated using interrupted inverted 3-0 Vicryl sutures. The skin was then reapproximated using Mastisol, and Steri-Strips. The wound was then dressed using Telfa
and Tegaderm.
All needle sponge counts were correct at the end the procedure. No complications were noted. My him assistant, IVAN Hartman, was necessary and present for the entirety of the procedure, including positioning, opening, dissection, retraction, and suture
management.
The patient's daughter was made aware of the intraoperative, as well as jayla and postoperative course expected, to which she expressed understanding. Medical team was also made aware of intraoperative findings so that additional workup treatment
could be initiated.
--- NOTE | 2024-03-02 17:39 | PHA.VAN.IN ---
Assessment
- Assessment
Renal Function: Appears similar to baseline
Concomitant Antimicrobials: ANCEF
- Previous Dosing Experience
Previous Regimen: 1GM IV Q24H
Date of Regimen: 02/03/18
Provided Trough of: UNKNOWN
Provided AUC of: UNKNOWN
NO MAR DOCUMENTATION FOR THIS ORDER
Plan
- Plan
Initial / Loading Dose: 1500MG
Maintenance Regimen: DOSING BY RANDOM LEVEL
Monitoring: RANDOM VANCOMYCIN LEVEL 03/03/24 AM
Pharmacokinetics Vancomycin I
- -
Patient Age: 88
Patient Sex: Female
Vancomycin Day #: 1
Indication: Bone And Joint
Requesting Provider: BETH
Height / Weight:
Height 5 ft 4 in
Actual Weight 55.48 kg
Pertinent Past Medical History: HX STAGE 4 CA
- Vital Signs / Lab Results
Temp Pulse Resp BP Pulse Ox
97.7 F 75 25 168/77 100
03/02/24 17:04 03/02/24 17:15 03/02/24 17:15 03/02/24 17:15 03/02/24 17:21
Lab Results - Hematology
02/29/24 03/01/24 03/02/24
05:09 08:03 05:32
WBC 15.3 H 21.9 H 17.3 H
Lab Results - Chemistry
02/29/24 03/01/24 03/02/24
05:09 08:03 05:32
BUN 36 H 35 H 37 H
Creatinine 0.9 0.9 0.9
Estimated Creat Clear 37 37 37
Microbiology Results
03/02/24 16:33 Fungal Culture - Preliminary
Fluid Culture in progress.
Positive cultures are reported as soon as detected.
Final report to follow in four to five weeks.
03/02/24 16:33 Fungal Culture - Preliminary
Fluid Culture in progress.
Positive cultures are reported as soon as detected.
Final report to follow in four to five weeks.
[2024-03-02] MEDS: VANCOCIN 300 MG IV (17:43)
[2024-03-02] MEDS: VANCOCIN 300 ML IV (17:43)
[2024-03-02] MEDS: FLUSH (NSS) 1 FLUSH IV (19:47)
[2024-03-02] MEDS: ANCEF 5 IV (22:10)
[2024-03-02] MEDS: FLUSH (NSS) 2 FLUSH IV (22:10)
[2024-03-03] VITALS (8 sets, daily range): BP systolic 89–128; BP diastolic 48–72; PULSE 64–65; O2SAT 94–96; BMI 21.1
[2024-03-03 05:00] LABS: Hemoglobin 11.8 g/dL (12.0-16.0); Mean Corp Hgb Conc. 32.8 g/dL (33.0-37.0); Mean Corpuscular Hgb 30.7 pg (27.0-31.0); Mean Corpuscular Volume 93.8 fL (81.0-99.0); Mean Platelet Volume 10.2 fL (7.4-10.4); Platelet Count 247 10^3/uL (130-400); Red Blood Cell Count 3.84 10^6/uL (4.20-5.40); Red Cell Dist. Width 12.5 % (11.5-14.5); White Blood Cell Count 14.5 10^3/uL (4.8-10.8)
[2024-03-03 05:15] LABS: Blood Urea Nitrogen 37 mg/dl (7-17); Calcium 9.2 mg/dl (8.4-10.2); Carbon Dioxide 33 mmol/L (22-30); Chloride 97 mmol/L (98-107); Estimated Creatinine Clearance 34 ml/min; Glucose 128 mg/dl (70-99); Potassium 4.2 mmol/L (3.5-5.1); Sodium 134 mmol/L (135-145); eGFR 54.19
[2024-03-03] MEDS: FLUSH (NSS) 2 FLUSH IV (05:23)
[2024-03-03] MEDS: ANCEF 5 IV (05:23)
[2024-03-03 05:25] LABS: Vancomycin Random 14.6 ug/ml
--- NOTE | 2024-03-03 08:44 | PHA.VAN.FU ---
Vancomycin Assessment / Plan
- Assessment
Renal Function: Stable
WBC's are: Trending Down
In the past 24 hrs, patient has been: Afebrile
- Assessment - Therapeutic Drug Monitoring
Random Level: 14.6 - drawn ~11H after 1500mg loading dose
- Dosing Plan
Dosing by Level: Re-dose today (Vanc 500mg)
- Monitoring Plan
Random Level: 03/04 06
- Follow Up
Pharmacy will continue to follow.
Vancomycin Follow UP
- -
Patient Age: 88
Patient Sex: Female
Vancomycin Day #: 2
Indication: Bone And Joint
Requesting Provider: Dr. Vasquez
Pertinent Antimicrobial Allergies:
ciprofloxacin - unknown
Height / Weight:
Height 5 ft 4 in
Actual Weight 55.48 kg
Pertinent Past Medical History: Stage IV Follicular Lymphoma, PORT
- Vital Signs / Lab Results
Temp Pulse Resp BP Pulse Ox
97.4 F 79 20 92/72 96
03/03/24 03:30 03/03/24 03:30 03/03/24 03:30 03/03/24 03:30 03/03/24 03:30
Lab Results - Hematology
03/01/24 03/02/24 03/03/24
08:03 05:32 04:37
WBC 21.9 H 17.3 H 14.5 H
Lab Results - Chemistry
03/01/24 03/02/24 03/03/24
08:03 05:32 04:37
BUN 35 H 37 H 37 H
Creatinine 0.9 0.9 1.0
Estimated Creat Clear 37 37 34
Microbiology Results
03/02/24 16:33 Gram Stain - Preliminary
Back
03/02/24 16:33 Gram Stain - Preliminary
Back
03/02/24 16:33 Fungal Culture - Preliminary
Fluid Culture in progress.
Positive cultures are reported as soon as detected.
Final report to follow in four to five weeks.
03/02/24 16:33 Fungal Culture - Preliminary
Fluid Culture in progress.
Positive cultures are reported as soon as detected.
Final report to follow in four to five weeks.
Therapeutic Drug Monitoring
Random Vancomycin 14.6 ug/ml 03/03/24 04:37
[2024-03-03] MEDS: CRESTOR 10 MG PO (08:52)
[2024-03-03] MEDS: DEMADEX 20 MG PO (08:52)
[2024-03-03] MEDS: VISBIOME 1 CAP PO (08:52)
[2024-03-03] MEDS: OSCAL 500 + D 500 MG PO (08:52)
[2024-03-03] MEDS: TYLENOL 1000 MG PO ×3 (08:53→20:34)
[2024-03-03] MEDS: LOPRESSOR 12.5 MG PO ×2 (08:53→22:13)
[2024-03-03] MEDS: KCL 20 MEQ PO (08:53)
[2024-03-03] MEDS: B COMPLEX w/VITAMIN C 1 CAPLET PO (08:53)
[2024-03-03] MEDS: NEURONTIN 100 MG PO ×3 (08:53→20:35)
[2024-03-03] MEDS: COLACE 100 MG PO ×2 (08:54→20:34)
[2024-03-03] MEDS: PACERONE 100 MG PO (08:54)
--- NOTE | 2024-03-03 09:14 | W.PN.CD ---
Today's Communication / Plan
-
resume eliquis when safe post op
monitor Bcx for growth
Impression / Plan
-
88 yo female with PMH of mitral regurgitation, chonic HFPEF, paroxysmal A fib on eliquis, 1st degree, iRBBB, hyperlipidemia, follicular lymphoma on mini R-CHOP (active therapy) is admitted with severe LLE pain.
She is s/p left L5-S1 hemilaminectomy, foraminotomy; evacuation of epidural abscess; decompression of left S1 nerve root on 03/02/24.
#Nilda-operative management
-remains in NSR
-Bcx sent 03/02 given finding of epidural abscess: no growth yet
-will check echo if Bcx become positive
-resume eliquis when safe post op
# Paroxysmal A fib
-in sinus (with 1st degree AVB, iRBBB) on amiodarone 100mg daily, and metoprolol tartrate 12.5mg bid
-CHADS2-VASC = 4. Eliquis on hold post op.
-monitor on tele: sinus
# Chronic HFPEF
-stable, euvolemic
-cont torsemide 20mg daily
# Mitral regurgitation
-severe in past, and now on diuretic, with last echo showing mild/moderate MR
# Hyperlipidemia
-stable, continue crestor
# Follicular lymphoma
-mini R-CHOP (active therapy)
-port in place
-normal LVEF and GLS on echo 09/2023
Physical Exam
Vital Signs/Labs
Vital Signs
Temp Pulse Resp BP Pulse Ox
98.6 F 74 16 118/64 92
03/03/24 07:49 03/03/24 07:49 03/03/24 07:49 03/03/24 07:49 03/03/24 07:49
03/02/24 03/03/24 03/04/24
06:59 06:59 06:59
Actual Weight 55.48 kg
03/03/24 04:37
03/03/24 04:37
Physical Exam
Constitutional: No acute distress and Comfortable
EENT: Moist mucous membranes
Cardiovascular: Rhythm & rate is regular, Pedal edema is absent, JVD pressure is normal and Systolic murmur present
Respiratory: Respiratory effort normal and Lungs clear to auscul.
GI: Soft, Distention absent and Flat
Neuro/Psych: AO x 3
Data Reviewed
-
Date of Service: March 03, 2024
EKG: Other (Tele: NSR)
Labs: Labs Reviewed by me
[2024-03-03] MEDS: VANCOCIN HCL 500 MG 100 IV (09:24)
--- NOTE | 2024-03-03 11:33 | W.PN.HOSP.TC ---
Today's Communication/Plan
-
Continue antibiotics
ID consult
PT/OT
Assessment / Plan
Assessment / Plan
Gen-AAOx3, NAD
HEENT-NC, AT, anicteric, clear oral mm
Neck-supple
CV-reg, no M, +S1/S2
Lungs-clear B/L
Abd-soft, NT, ND
Ext-no edema
Musculoskeletal-no cyanosis, clubbing
Skin-warm and dry
Neuro-grossly non-focal
Psych-calm, cooperative
Lumbar epidural abscess -surprising finding during surgery on 03/02. No signs of infection on prior lumbar MRI this admission, but study was limited by lack of contrast and motion degradation. Currently on IV vancomycin awaiting culture results.
ID consulted. Source of infection unclear but concern given chemotherapy port in place. WBCs trending down.
Stable after left L5-S1 hemilaminectomy, foraminotomy. Evacuation of epidural abscess. Decompression of left S1 nerve root.
Chronic HFpEF -stable.
Parox Atrial Fibrillation -resume Eliquis when okay with neurosurgery.
Mitral regurgitation - TTE 04/2023 with EF 62%, Stage II diastolic dysfunction
Essential HTN - continue BB
Hyperlipidemia- continue statin.
Chronic Anemia - Hgb 11.8 g/dL. Stable. Follow trends.
Hx Stage IV Follicular Lymphoma
- Pt endorses recurrence last year. Continue management with Dr. Zee Perdomo at [place] outpatient
- on mini-R-CHOP via PORT previously, now on Rituxan
- Onc following; appreciate pre-op evaluation
- CT C/A/P with no reported lymphadenopathy
Code Status: Full
Dispo -back to [facility] when medically stable.
Anticipated Discharge: > 48 hours
Subjective/Interval History
-
Date of Service: March 03, 2024
Patient seen and examined. No complaints. Pain is controlled.
Objective Data
-
Labs:
Laboratory Results
03/03/24
04:37
WBC 14.5 H
Hgb 11.8 L
Hct 36.0 L
Plt Count 247
Sodium 134 L
Potassium 4.2
Chloride 97 L
Carbon Dioxide 33 H
BUN 37 H
Creatinine 1.0
Glucose 128 H
Calcium 9.2
Vital Signs:
Vital Signs
Temp Pulse Resp BP Pulse Ox
98.6 F 74 16 118/64 92
03/03/24 07:49 03/03/24 07:49 03/03/24 07:49 03/03/24 07:49 03/03/24 08:00
I&O
03/02/24 03/03/24 03/04/24
06:59 06:59 06:59
Intake Total 840 / 840 250 / 250
Balance 840 / 840 250 / 250
Review of Systems
-
History Source: Patient
All other systems: Reviewed and negative
[2024-03-03] MEDS: ULTRAM 50 MG PO (12:33)
--- NOTE | 2024-03-03 12:46 | CM ---
Patient seen bedside with daughter.
PT/OT recommending skilled rehab.
Patients first choice [facility] and patient has been accepted.
Per patient next Chemo 05/12/24.
CX pending, s/p hemilami and foraminotomy with decompression of nerve root. abscess.
Patient continues on IV anbx.
Bernice from [facility] Updated.
Plan: skilled rehab at the [facility] when stable.
--- NOTE | 2024-03-03 15:51 | CON.ID ---
Addendum entered and electronically signed by Cr Ryan DO 03/03/24 16:25:
Discussed with [facility] regarding port removal, and they are in agreement.
Consult placed to [facility]
Original Note:
Consultation
-
Date/Time Consultation Requested: 03/02/2024 1705
Date/Time Consultation Performed: 03/03/2024 1500
Requesting Provider: Dr. Vasquez
Performing Provider: Dr. Ryan
Reason for Consultation: Epidural abscess
Chief Complaint / Past History
History of Present Illness
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 Vasquez in regards to epidural abscess. History is obtained from chart review,
along with patient interview. Additional history was obtained from the patient's daughter who was at the bedside.
The patient was in her usual state of health until approximately 2 weeks ago when she started to develop some left lower back discomfort. This progressed over period of time and the patient reports that she was evaluated by orthopedics (at
[place]), but nothing was found. Because of ongoing discomfort she presented to the emergency room here at [place] on 02/26/2024. Over this period of time she has had progressive lower extremity weakness, and ultimately she was taken to the OR
by Neurosurgery for left L5/S1 radiculopathy which was felt to be structural. In the OR she was found to have an epidural abscess, and cultures are now revealing growth of [place] strep.
Additional history is notable for recent administration of Rituxan. The patient has not had any significant fevers or chills. No recent dental procedures.
Past History
Additional Past Medical History:
Large B-cell lymphoma
Atrial fibrillation
HTN
Additional Past Surgical History:
Left hip replacement
Port-A-Cath (04/2023)
Hysterectomy
Allergy History:
allopurinol Allergy (Verified 12/02/20 09:19)
Rash
bendamustine [From [place]] Allergy (Verified 02/26/24 07:09)
Unknown
ciprofloxacin Allergy (Verified 02/26/24 20:04)
Unknown
povidone-iodine Allergy (Verified 12/02/20 09:19)
Rash
soap Allergy (Verified 12/02/20 09:19)
Rash
Medications Reviewed: Yes
Current Antibiotics:
Vancomycin
Social History
Tobacco: Non-Smoker
Alcohol: Occasional
Drug: None
Living: Assisted Living
Employment: Retired
Family History
Family History: Not Pertinent
Review of Systems
Vital Signs
Temp Pulse Resp BP Pulse Ox
98.3 F 71 14 128/55 95
03/03/24 15:09 03/03/24 15:09 03/03/24 15:09 03/03/24 15:09 03/03/24 15:09
Physical Exam
Physical Exam
Constitutional: No Acute Distress, Comfortable and Non-toxic
Head: Normocephalic
Eyes: Pupils Equal, Pupils Round, No Conjunctival Hemorrhage and Sclera Anicteric
Oral: No Thrush and No Ulcers
Cardiovascular: Regular Rate, S1/S2 and Murmur; Negative S3/S4
Pulmonary: Clear; Negative Wheezes, Rales or Rhonchi
Gastrointestinal: Soft, Non Tender, Non Distended and Normal Bowel Sounds
Extremities: Negative Edema, Cyanosis, Erythema, Splinter Hemorrhage or [place] Lesions
Neurological: Awake and Alert
Psychological: Calm
Lab / Diagnostic Study Results
03/03/24 04:37
03/03/24 04:37
Abs Immat Gran (auto) 0.0 10^3/uL (0-0.05) 02/26/24 08:59
Absolute Neuts (auto) 8.3 10^3/uL (1.4-6.5) H 02/26/24 08:59
Absolute Lymphs (auto) 0.7 10^3/uL (1.2-3.4) L 02/26/24 08:59
Absolute Monos (auto) 1.2 10^3/uL (0.1-0.6) H 02/26/24 08:59
Absolute Basos (auto) 0.0 10^3/uL (0-0.2) 02/26/24 08:59
Immature Gran % 0.3 % (0-0.5) 02/26/24 08:59
Neutrophils % 80.9 % (42.2-75.2) H 02/26/24 08:59
Lymphocytes % 6.9 % (20.5-51.1) L 02/26/24 08:59
Monocytes % 11.6 % (1.7-9.3) H 02/26/24 08:59
Eosinophils % 0.1 % (0-6) 02/26/24 08:59
Basophils % 0.2 % (0-2) 02/26/24 08:59
ESR 27 mm/hour (0-20) H 02/26/24 08:59
C-Reactive Protein 134.20 mg/L (0.0-10.00) H 02/26/24 08:59
Urine WBC 3-5 /HPF (0-5) 02/27/24 03:08
Ur Squamous Epith Cells 0-2 /LPF (Few) 02/27/24 03:08
Microbiology Results
Micro:
03/02/24 16:33 Wound Culture - Preliminary
Back Viridans Streptococcus Group
Gram Stain - Preliminary
03/02/24 16:33 Wound Culture - Preliminary
Back Viridans Streptococcus Group
Gram Stain - Preliminary
03/02/24 16:33 Anaerobic Culture - Preliminary
Fluid Culture pending. Anaerobic cultures are examined after 3
days incubation. Additional information to follow.
03/02/24 16:33 Anaerobic Culture - Preliminary
Fluid Culture pending. Anaerobic cultures are examined after 3
days incubation. Additional information to follow.
03/02/24 19:57 Blood Culture - Pending
Blood/Venous
03/02/24 19:10 Blood Culture - Pending
Blood/Venous
03/02/24 16:33 Fungal Culture - Preliminary
Fluid Culture in progress.
Positive cultures are reported as soon as detected.
Final report to follow in four to five weeks.
03/02/24 16:33 Fungal Culture - Preliminary
Fluid Culture in progress.
Positive cultures are reported as soon as detected.
Final report to follow in four to five weeks.
Imaging:
02/26/24 MRI lumbar spine: Limited exam due to motion. Patient refused IV contrast. No acute fracture. Chronic compression of the superior endplate of T11. There is increased anterior listhesis of L5 on S1, which in combination with increased
broad-based disk bulge/protrusion and increased facet arthropathy there is spur disk in the left lateral recess which impinges upon the exiting left L5 and descending left S1 nerve roots.
Assessment / Plan
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
Leukocytosis
Elevated CRP
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
Large B-cell lymphoma; on maintenance Rituxan
Atrial fibrillation
HTN
Recommendations:
Discontinue further vancomycin. Consolidate to ceftriaxone 2 g IV every 12 hours.
Patient counseled that she will likely need a 6-week course of antibiotics.
Monitor white count and temperature curve.
Given the likely hematogenous dissemination of the bacteria, and presence of Port-A-Cath, he is unclear whether the port may be infected, but would consider removal. Will await further input from Heme-onc
[2024-03-03] MEDS: STERILE WATER FOR INJECTION 20 ML IV (17:19)
[2024-03-03] MEDS: ROCEPHIN 2000 MG IV (17:21)
[2024-03-04] VITALS (9 sets, daily range): BP systolic 73–141; BP diastolic 41–71; PULSE 69–86; O2SAT 96; BMI 20.7
[2024-03-04] MEDS: STERILE WATER FOR INJECTION 20 ML IV ×2 (05:13→17:18)
[2024-03-04] MEDS: ROCEPHIN 2000 MG IV ×2 (05:13→17:18)
[2024-03-04 05:37] LABS: Hematocrit 34.5 % (37.0-47.0); Hemoglobin 11.8 g/dL (12.0-16.0); Mean Corp Hgb Conc. 34.2 g/dL (33.0-37.0); Mean Corpuscular Hgb 31.6 pg (27.0-31.0); Mean Corpuscular Volume 92.2 fL (81.0-99.0); Mean Platelet Volume 10.2 fL (7.4-10.4); Platelet Count 227 10^3/uL (130-400); Red Blood Cell Count 3.74 10^6/uL (4.20-5.40); Red Cell Dist. Width 12.7 % (11.5-14.5); White Blood Cell Count 15.5 10^3/uL (4.8-10.8)
[2024-03-04 05:57] LABS: Blood Urea Nitrogen 41 mg/dl (7-17); Calcium 8.8 mg/dl (8.4-10.2); Carbon Dioxide 35 mmol/L (22-30); Chloride 94 mmol/L (98-107); Estimated Creatinine Clearance 34 ml/min; Glucose 103 mg/dl (70-99); Sodium 133 mmol/L (135-145); eGFR 54.19
[2024-03-04] MEDS: LOPRESSOR 12.5 MG PO (08:11)
[2024-03-04] MEDS: VISBIOME 1 CAP PO (08:11)
[2024-03-04] MEDS: B COMPLEX w/VITAMIN C 1 CAPLET PO (08:11)
[2024-03-04] MEDS: COLACE 100 MG PO ×2 (08:11→21:01)
[2024-03-04] MEDS: PACERONE 100 MG PO (08:11)
[2024-03-04] MEDS: KCL 20 MEQ PO (08:11)
[2024-03-04] MEDS: TYLENOL 1000 MG PO ×3 (08:11→21:01)
[2024-03-04] MEDS: NEURONTIN 100 MG PO ×3 (08:11→21:01)
[2024-03-04] MEDS: CRESTOR 10 MG PO (08:11)
[2024-03-04] MEDS: DEMADEX 20 MG PO (08:12)
[2024-03-04] MEDS: OSCAL 500 + D 500 MG PO (08:12)
--- NOTE | 2024-03-04 08:28 | W.PN.CD ---
Today's Communication / Plan
-
OAC management: discussed with neurosurgery, and will resume eliquis /20 PM dose (ordered)
please call us back with additional questions
Impression / Plan
-
88 yo female with PMH of mitral regurgitation, chonic HFPEF, paroxysmal A fib on eliquis, 1st degree, iRBBB, hyperlipidemia, follicular lymphoma on mini R-CHOP (active therapy) is admitted with severe LLE pain.
She is s/p left L5-S1 hemilaminectomy, foraminotomy; evacuation of epidural abscess; decompression of left S1 nerve root on 03/02/24.
#Nilda-operative management
-remains in NSR
-Bcx sent 03/02 given finding of epidural abscess: no growth yet
-port to be removed today
-would check echo if Bcx become positive
-OAC management: discussed with neurosurgery, and will resume eliquis 20 PM dose (ordered)
# Paroxysmal A fib
-in sinus (with 1st degree AVB, iRBBB) on amiodarone 100mg daily, and metoprolol tartrate 12.5mg bid
-CHADS2-VASC = 4. Eliquis plan as above.
-monitor on tele: sinus
# Chronic HFPEF
-stable, euvolemic
-cont torsemide 20mg daily
# Mitral regurgitation
-severe in past, and now on diuretic, with last echo showing mild/moderate MR
# Hyperlipidemia
-stable, continue crestor
# Follicular lymphoma
-mini R-CHOP (active therapy)
-port will be removed as discussed above
-normal LVEF and GLS on echo 09/2023
Physical Exam
Vital Signs/Labs
Vital Signs
Temp Pulse Resp BP Pulse Ox
99.6 F 89 18 114/64 95
03/04/24 07:00 03/04/24 07:00 03/04/24 07:00 03/04/24 07:00 03/04/24 07:00
03/03/24 03/04/24 03/05/24
06:59 06:59 06:59
Actual Weight 54.63 kg
03/04/24 05:10
03/04/24 05:10
Physical Exam
Constitutional: No acute distress and Comfortable
EENT: Moist mucous membranes
Cardiovascular: Rhythm & rate is regular, Pedal edema is absent, JVD pressure is normal and Systolic murmur absent
Respiratory: Respiratory effort normal, Lungs clear to auscul. and Wheeze Absent
GI: Soft, Distention absent and Flat
Neuro/Psych: AO x 3
Data Reviewed
-
Date of Service: March 04, 2024
EKG: Other (Tele: NSR 80s)
Labs: Labs Reviewed by me
--- NOTE | 2024-03-04 10:06 | W.PN.HOSP.TC ---
Today's Communication/Plan
-
Discharge planning
Assessment / Plan
Assessment / Plan
Gen-AAOx3, NAD
HEENT-NC, AT, anicteric, clear oral mm
Neck-supple
CV-reg, no M, +S1/S2
Lungs-clear B/L
Abd-soft, NT, ND
Ext-no edema
Musculoskeletal-no cyanosis, clubbing
Skin-warm and dry
Neuro-grossly non-focal
Psych-calm, cooperative
Lumbar epidural abscess -surprising finding during surgery on 03/02. No signs of infection on prior lumbar MRI this admission, but study was limited by lack of contrast and motion degradation. Currently on IV vancomycin awaiting culture results.
ID consulted. Source of infection unclear but concern given chemotherapy port in place. WBCs trending down.
Stable after left L5-S1 hemilaminectomy, foraminotomy. Evacuation of epidural abscess. Decompression of left S1 nerve root.
Wound culture shows Viridans Streptococcus. Blood cultures negative so far. Anticipate 6 weeks of antibiotics per infectious disease. Currently on IV ceftriaxone.
Chemotherapy port was removed this morning by IR over concern for possible source of infection.
Chronic HFpEF -stable.
Parox Atrial Fibrillation -resume Eliquis evening of 03/05 as per neurosurgery.
Mitral regurgitation - TTE 04/2023 with EF 62%, Stage II diastolic dysfunction
Essential HTN - continue BB
Hyperlipidemia- continue statin.
Chronic Anemia - Hgb 11.8 g/dL. Stable. Follow trends.
Hx Stage IV Follicular Lymphoma
- Pt endorses recurrence last year. Continue management with Dr. Zee Perdomo at [facility]
- on mini-R-CHOP via PORT previously, now on Rituxan
- Onc following; appreciate pre-op evaluation
- CT C/A/P with no reported lymphadenopathy
Code Status: Full
Dispo -back to [facility] for SNF if okay with consultants.
Anticipated Discharge: Within 24 hours
Subjective/Interval History
-
Date of Service: March 04, 2024
Patient seen and examined, pain is currently controlled. No complaints.
Objective Data
-
Labs:
Laboratory Results
03/04/24
05:10
WBC 15.5 H
Hgb 11.8 L
Hct 34.5 L
Plt Count 227
Sodium 133 L
Potassium 4.0
Chloride 94 L
Carbon Dioxide 35 H
BUN 41 H
Creatinine 1.0
Glucose 103 H
Calcium 8.8
Vital Signs:
Vital Signs
Temp Pulse Resp BP Pulse Ox
99.6 F 89 18 114/64 95
03/04/24 07:00 03/04/24 07:00 03/04/24 07:00 03/04/24 07:00 03/04/24 07:00
I&O
03/03/24 03/04/24 03/05/24
06:59 06:59 06:59
Intake Total 250 / 250 820 / 820
Output Total 600 / 600
Balance 250 / 250 220 / 220
Review of Systems
-
History Source: Patient
All other systems: Reviewed and negative
--- NOTE | 2024-03-04 10:25 | W.PN.ID1 ---
Date of Service
Date of Service: March 04, 2024
Today's Communication
Continue antibiotics.
Assessment / Plan
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
Leukocytosis
Elevated CRP
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
Large B-cell lymphoma; on maintenance Rituxan
Atrial fibrillation
HTN
Recommendations:
Continue ceftriaxone 2 g IV every 12 hours.
Patient counseled that she will likely need a 6-week course of antibiotics.
Monitor white count and temperature curve.
Port removed. Would like patient to be line free for [address] PICC tomorrow.
Antibiotic infusion sheet placed on paper chart, and given to Case Management.
Chief Complaint
-: Other (Epidural abscess)
Subjective / Review of Systems
Review of Systems: No Fever and No Chills
Vital Signs / Physical Exam
Vital Signs
Vital Signs
Temp Pulse Resp BP Pulse Ox
98.1 F 67 18 141/71 95
03/04/24 10:07 03/04/24 10:07 03/04/24 10:07 03/04/24 10:07 03/04/24 10:07
Physical Exam
Constitutional: No Acute Distress, Comfortable and Non-toxic
Eyes: No Conjunctival Hemorrhage and Sclera Anicteric
Cardiovascular: S1/S2; Negative S3/S4
Pulmonary: Non Labored
Wound: Other (Lumbar dressing in place. No periwound erythema)
Neurological: Awake and Alert
Psychological: Calm
Objective Data
Lab Data
Lab Results
03/04/24 05:10
03/04/24 05:10
ESR 27 mm/hour (0-20) H 02/26/24 08:59
Estimated Creat Clear 34 ml/min 03/04/24 05:10
Total Bilirubin 0.9 mg/dl (0.2-1.3) 02/26/24 08:59
AST 21 U/L (14-36) 02/26/24 08:59
ALT 18 U/L (0-35) 02/26/24 08:59
Alkaline Phosphatase 63 U/L (38-126) 02/26/24 08:59
C-Reactive Protein 134.20 mg/L (0.0-10.00) H 02/26/24 08:59
Most recent labs reviewed.
Micro Results:
03/04/24 09:14 Catheter Tip Culture - Pending
Catheter Tip
03/02/24 19:57 Blood Culture - Preliminary
Blood/Venous No Growth in 24 hours- Final report to follow
03/02/24 19:10 Blood Culture - Preliminary
Blood/Venous No Growth in 24 hours- Final report to follow
03/02/24 16:33 Wound Culture - Preliminary
Back Viridans Streptococcus Group
Gram Stain - Preliminary
03/02/24 16:33 Wound Culture - Preliminary
Back Viridans Streptococcus Group
Gram Stain - Preliminary
03/02/24 16:33 Anaerobic Culture - Preliminary
Fluid Culture pending. Anaerobic cultures are examined after 3
days incubation. Additional information to follow.
03/02/24 16:33 Anaerobic Culture - Preliminary
Fluid Culture pending. Anaerobic cultures are examined after 3
days incubation. Additional information to follow.
03/02/24 16:33 Fungal Culture - Preliminary
Fluid Culture in progress.
Positive cultures are reported as soon as detected.
Final report to follow in four to five weeks.
03/02/24 16:33 Fungal Culture - Preliminary
Fluid Culture in progress.
Positive cultures are reported as soon as detected.
Final report to follow in four to five weeks.
Imaging:
02/26/24 MRI lumbar spine: Limited exam due to motion. Patient refused IV contrast. No acute fracture. Chronic compression of the superior endplate of T11. There is increased anterior listhesis of L5 on S1, which in combination with increased
broad-based disk bulge/protrusion and increased facet arthropathy there is spur disk in the left lateral recess which impinges upon the exiting left L5 and descending left S1 nerve roots.
--- NOTE | 2024-03-04 11:57 | CM ---
Addendum entered by Milena Vicente 03/04/24 12:40:
FAX # [phone]. No room or unit assigned as yet. [facility] has our coronary care unit nurse # for them to call for report.
Original Note:
Port removed. For Picc on 03/05/24. Accepted to [facility] for 03/05/24 if medically cleared. Contact BRIELLE in admissions @ [phone]. ID and Oncology notes forwarded to Admissions. Aware of need for IV/AB. IMM signed.
--- NOTE | 2024-03-04 12:47 | PTCARENOTE ---
1204: Pt's BP is 84/51. Dr. Alexander notified. Dr. Alexander ordered orthostatic BP's. Orthostatic BP completed and positive, patient asymptomatic, and Dr. Alexander notifed. Per MD, encourage oral fluid intake and MD is ordering Mododrine. RN continuing
to monitor.
[2024-03-04] MEDS: ProAmatine 5 MG PO ×2 (13:06→17:34)
[2024-03-04 13:24] LABS: ALT (SGPT) 19 U/L (0-35); AST (SGOT) 25 U/L (14-36); Albumin 3.1 g/dl (3.5-5.0); Alkaline Phosphatase 84 U/L (38-126); Direct Bilirubin 0.3 mg/dl (0.0-0.4); Total Bilirubin 0.4 mg/dl (0.2-1.3); Total Protein 5.2 g/dl (6.3-8.2)
--- NOTE | 2024-03-04 13:32 | PN.NS ---
Subjective
-
No events. States that her leg pain is gone. Has noted some improvement in her foot strength.
Physical Exam
-
Exam:
Exam:
Awake, alert, no apparent distress
Cranial nerves II to XII are grossly intact
Motor: 5/5 strength in bilateral upper extremities, no pronator drift. 3/5 strength in left EHL, otherwise full strength in lower extremities in all other muscle groups.
Head is normocephalic atraumatic.
Neck is supple.
Breathing nonlabored.
Pulses palpable.
Abdomen nondistended nontender.
Gait: Antalgic gait, ambulates with walker.
MRI of the lumbar spine performed on 02/26/2024 was reviewed. At L5-S1, there is evidence of cysts soft tissue noted within the left L5-S1 neuroforamen/lateral recess. This appears to be T2 hypointense. Differential diagnosis may be disc
extrusion/herniation versus synovial cyst? Imaging was reviewed with radiology, Dr. Wero Chen, on 02/27/2024 who reviewed the MRI scan, does concur that findings at the left L5-S1 neuroforamen can be consistent with disc extrusion/sequestered
disc versus synovial cyst less likely.
Incision with dressing. Dressing was removed and there is some purulent drainage.
Problems
-
Problem Status Onset Code
Leg pain M79.606
Assessment / Plan
-
Postop day #2 from left-sided L5-S1 laminoforaminotomy evacuation of epidural abscess.
1. Continue antibiotics as per ID
2. Wound dressing changes as needed
3. Will follow to check wound.
4. PT/OT
5. Okay to restart Eliquis as ordered
6. Notify neurosurgery of any changes.
Today's Communication
-
[2024-03-04] MEDS: LOPRESSOR PO (22:34)
[2024-03-05 03:10] VITALS: BP 131/62
[2024-03-05] MEDS: ROXICODONE 5 MG PO (03:44)
[2024-03-05] MEDS: ROCEPHIN 2000 MG IV ×2 (05:28→17:10)
[2024-03-05] MEDS: STERILE WATER FOR INJECTION 20 ML IV ×2 (05:28→17:10)
[2024-03-05] MEDS: TYLENOL 1000 MG PO ×4 (05:28→21:34)
[2024-03-05 06:00] VITALS: BMI 21.0
[2024-03-05 07:15] VITALS: BP 109/56
[2024-03-05] MEDS: ProAmatine 5 MG PO ×3 (08:41→17:09)
[2024-03-05] MEDS: COLACE 100 MG PO ×2 (08:41→19:47)
[2024-03-05] MEDS: PACERONE 100 MG PO (08:41)
[2024-03-05] MEDS: LOPRESSOR 12.5 MG PO ×2 (08:41→19:47)
[2024-03-05] MEDS: DEMADEX 20 MG PO (08:41)
[2024-03-05] MEDS: KCL 20 MEQ PO (08:42)
[2024-03-05] MEDS: B COMPLEX w/VITAMIN C 1 CAPLET PO (08:42)
[2024-03-05] MEDS: OSCAL 500 + D 500 MG PO (08:42)
[2024-03-05] MEDS: NEURONTIN 100 MG PO ×3 (08:42→21:34)
[2024-03-05] MEDS: CRESTOR 10 MG PO (08:42)
[2024-03-05] MEDS: VISBIOME 1 CAP PO (08:42)
--- NOTE | 2024-03-05 10:50 | W.PN.ID1 ---
Date of Service
Date of Service: March 05, 2024
Today's Communication
Continue antibiotics.
Assessment / Plan
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
Leukocytosis
Elevated CRP
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
Large B-cell lymphoma; on maintenance Rituxan
Atrial fibrillation
HTN
Recommendations:
Continue ceftriaxone 2 g IV every 12 hours to complete a 6-week course of therapy.
Monitor white count and temperature curve.
Port previously removed. Blood cultures negative. Will place PICC line.
Given significant back pain overnight, patient going for repeat MRI of the back.
Antibiotic infusion sheet placed on paper chart, and given to Case Management.
Chief Complaint
-: Other (Epidural abscess)
Subjective / Review of Systems
Patient seen and examined. Reported significant low back discomfort overnight (08/25), but now improved to 02/23.
Review of Systems: No Fever
Vital Signs / Physical Exam
Vital Signs
Vital Signs
Temp Pulse Resp BP Pulse Ox
98.2 F 78 18 109/56 94
03/05/24 07:15 03/05/24 08:41 03/05/24 07:15 03/05/24 08:41 03/05/24 07:15
Physical Exam
Constitutional: No Acute Distress, Comfortable and Non-toxic
Cardiovascular: S1/S2; Negative S3/S4
Pulmonary: Non Labored
Gastrointestinal: Soft, Non Tender and Non Distended
Neurological: Awake and Alert
Psychological: Calm
Objective Data
Lab Data
Lab Results
03/04/24 05:10
03/04/24 05:10
ESR 27 mm/hour (0-20) H 02/26/24 08:59
Estimated Creat Clear 34 ml/min 03/04/24 05:10
Total Bilirubin 0.4 mg/dl (0.2-1.3) 03/04/24 12:43
AST 25 U/L (14-36) 03/04/24 12:43
ALT 19 U/L (0-35) 03/04/24 12:43
Alkaline Phosphatase 84 U/L (38-126) 03/04/24 12:43
C-Reactive Protein 134.20 mg/L (0.0-10.00) H 02/26/24 08:59
Most recent labs reviewed.
Micro Results:
03/04/24 09:14 Catheter Tip Culture - Preliminary
Catheter Tip No Growth After 18-24 Hours
03/02/24 16:33 Anaerobic Culture - Preliminary
Fluid Culture pending. Anaerobic cultures are examined after 3
days incubation. Additional information to follow.
03/02/24 16:33 Anaerobic Culture - Preliminary
Fluid Culture pending. Anaerobic cultures are examined after 3
days incubation. Additional information to follow.
03/02/24 19:57 Blood Culture - Preliminary
Blood/Venous No Growth in 48 hours- Final report to follow
03/02/24 19:10 Blood Culture - Preliminary
Blood/Venous No Growth in 48 hours- Final report to follow
03/02/24 16:33 Wound Culture - Preliminary
Back Viridans Streptococcus Group
Gram Stain - Preliminary
03/02/24 16:33 Wound Culture - Preliminary
Back Viridans Streptococcus Group
Gram Stain - Preliminary
03/02/24 16:33 Fungal Culture - Preliminary
Fluid Culture in progress.
Positive cultures are reported as soon as detected.
Final report to follow in four to five weeks.
03/02/24 16:33 Fungal Culture - Preliminary
Fluid Culture in progress.
Positive cultures are reported as soon as detected.
Final report to follow in four to five weeks.
Imaging:
02/26/24 MRI lumbar spine: Limited exam due to motion. Patient refused IV contrast. No acute fracture. Chronic compression of the superior endplate of T11. There is increased anterior listhesis of L5 on S1, which in combination with increased
broad-based disk bulge/protrusion and increased facet arthropathy there is spur disk in the left lateral recess which impinges upon the exiting left L5 and descending left S1 nerve roots.
--- NOTE | 2024-03-05 11:48 | CM ---
CM following re: d/c planning.
D/c plan for pt is for SNF placement, at [facility] ([facility]
Call received from Bernice @ admissions, inquiring about pt's d/c status.
Discussed with attending, no plans for d/c this weekend.
CM will continue to update SNF, and will continue to follow for d/c planning.
--- NOTE | 2024-03-05 12:36 | W.PN.HOSP.TC ---
Today's Communication/Plan
-
Await lumbar MRI
Assessment / Plan
Assessment / Plan
Gen-AAOx3, NAD
HEENT-NC, AT, anicteric, clear oral mm
Neck-supple
CV-reg, no M, +S1/S2
Lungs-clear B/L
Abd-soft, NT, ND
Ext-no edema
Musculoskeletal-no cyanosis, clubbing
Skin-warm and dry
Neuro-grossly non-focal
Psych-calm, cooperative
Lumbar epidural abscess -surprising finding during surgery on 03/02. No signs of infection on prior lumbar MRI this admission, but study was limited by lack of contrast and motion degradation. Currently on IV vancomycin awaiting culture results.
ID consulted. Source of infection unclear but concern given chemotherapy port in place. WBCs trending down.
Stable after left L5-S1 hemilaminectomy, foraminotomy. Evacuation of epidural abscess. Decompression of left S1 nerve root.
Wound culture shows Viridans Streptococcus. Blood cultures negative so far. Anticipate 6 weeks of antibiotics per infectious disease. Currently on IV ceftriaxone.
Chemotherapy port was removed 03/04 by IR over concern for possible source of infection.
Repeat lumbar MRI repeated this morning for evaluation of possible recurrence of infection. Report pending.
Chronic HFpEF -stable.
Parox Atrial Fibrillation -resume Eliquis when okay with neurosurgery.
Mitral regurgitation - TTE 04/2023 with EF 62%, Stage II diastolic dysfunction
Essential HTN - continue BB
Hyperlipidemia- continue statin.
Chronic Anemia - Hgb 11.8 g/dL. Stable. Follow trends.
Hx Stage IV Follicular Lymphoma
- Pt endorses recurrence last year. Continue management with Dr. Zee Perdomo at [place] outpatient
- on mini-R-CHOP via PORT previously, now on Rituxan
- Onc following; appreciate pre-op evaluation
- CT C/A/P with no reported lymphadenopathy
Code Status: Full
Dispo -back to [facility] for SNF when medically stable.
Anticipated Discharge: > 48 hours
Subjective/Interval History
-
Date of Service: March 05, 2024
Patient seen and examined. Complaining of mild increase in lower back pain.
Objective Data
-
Vital Signs:
Vital Signs
Temp Pulse Resp BP Pulse Ox
98.2 F 85 18 94/56 94
03/05/24 07:15 03/05/24 12:00 03/05/24 07:15 03/05/24 12:00 03/05/24 07:15
I&O
03/04/24 03/05/24 03/06/24
06:59 06:59 06:59
Intake Total 820 / 820 960 / 960
Output Total 600 / 600
Balance 220 / 220 960 / 960
Review of Systems
-
History Source: Patient
All other systems: Reviewed and negative
--- NOTE | 2024-03-05 13:10 | VATNOTE ---
Blood cultures preliminarily negative x48 hours. Checked with Dr. Ryan if OK to place PICC at this time. OK for PICC placement per Dr. Ryan.
--- NOTE | 2024-03-05 14:36 | PN.NS ---
Subjective
-
Patient was doing well up until this morning where she began having left sided buttock pain with radiation down the back of the leg to above the knee. States it was quite severe. This prompted a new MRI of the lumbar spine. Upon review of the MRI
there is a left piriformis collection which is sitting directly over the area where her pain is. She states that her pain is different that led to her spine operation. Nursing notes that her wound dressing has required 1 change today secondary to
some drainage.
Physical Exam
-
Exam:
Exam:
Awake, alert, no apparent distress
Cranial nerves II to XII are grossly intact
Motor: 5/5 strength in bilateral upper extremities, no pronator drift. 3/5 strength in left EHL, otherwise full strength in lower extremities in all other muscle groups.
Head is normocephalic atraumatic.
Neck is supple.
Breathing nonlabored.
Pulses palpable.
Abdomen nondistended nontender.
Gait: Antalgic gait, ambulates with walker.
MRI of the lumbar spine performed on 02/26/2024 was reviewed. At L5-S1, there is evidence of cysts soft tissue noted within the left L5-S1 neuroforamen/lateral recess. This appears to be T2 hypointense. Differential diagnosis may be disc
extrusion/herniation versus synovial cyst? Imaging was reviewed with radiology, Dr. Wero Chen, on 02/27/2024 who reviewed the MRI scan, does concur that findings at the left L5-S1 neuroforamen can be consistent with disc extrusion/sequestered
disc versus synovial cyst less likely.
MRI lumbar spine 03/05/2024: Reveals adequate decompression at L5-S1 on the left side there is a small subcutaneous collection. There is a large left piriformis collection. Compared to the CAT scan of the chest abdomen pelvis which was completed
upon presentation this appears marginally bigger.
Incision is intact with Steri-Strips.
Mild amount of drainage noted on the dressing the size of a dime.
Problems
-
Problem Status Onset Code
Leg pain M79.606
Assessment / Plan
-
Postop day #3 from left-sided L5-S1 laminoforaminotomy evacuation of epidural abscess.
#1 she does not require reexploration of her lumbar wound
2. Recommend IR input regarding possibility of draining left piriformis collection
3. Will follow
Today's Communication
-
[2024-03-05 15:20] VITALS: BP 119/65
[2024-03-05 19:05] VITALS: BP 101/61
[2024-03-05] MEDS: ULTRAM 50 MG PO (21:33)
[2024-03-05 23:25] VITALS: BP 102/52
[2024-03-06] VITALS (11 sets, daily range): BP systolic 66–151; BP diastolic 52–85; PULSE 81–93; O2SAT 96; BMI 20.9
[2024-03-06] MEDS: TUMS 1 TABLET PO (01:27)
[2024-03-06] MEDS: ROCEPHIN 2000 MG IV ×2 (05:34→17:36)
[2024-03-06] MEDS: STERILE WATER FOR INJECTION 20 ML IV ×2 (05:34→17:36)
[2024-03-06] MEDS: ULTRAM 50 MG PO (05:35)
--- NOTE | 2024-03-06 09:27 | W.PN.ID1 ---
Date of Service
Date of Service: March 06, 2024
Today's Communication
Continue antibiotics.
Assessment / Plan
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
Leukocytosis
Elevated CRP
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
Large B-cell lymphoma; on maintenance Rituxan
Atrial fibrillation
HTN
Recommendations:
Continue ceftriaxone 2 g IV every 12 hours to complete a 6-week course of therapy (through 04/14/24)
Monitor white count and temperature curve.
Port previously removed. Blood cultures negative. Will place PICC line.
Patient to be evaluated by Interventional Radiology for possible aspiration of additional areas noted on recent MRI.
Antibiotic infusion sheet placed on paper chart, and given to Case Management.
Chief Complaint
-: Other (Epidural abscess)
Subjective / Review of Systems
Patient seen and examined. Reports some back pain overnight (02/23). No fevers or chills.
Vital Signs / Physical Exam
Vital Signs
Vital Signs
Temp Pulse Resp BP Pulse Ox
99.2 F 76 16 131/61 94
03/06/24 07:25 03/06/24 07:25 03/06/24 07:25 03/06/24 07:25 03/06/24 07:25
Physical Exam
Constitutional: No Acute Distress, Comfortable and Non-toxic
Pulmonary: Non Labored
Gastrointestinal: Non Distended
Wound: Other (Back wound dressed.)
Neurological: Awake and Alert
Psychological: Calm
Objective Data
Lab Data
Lab Results
03/04/24 05:10
ESR 27 mm/hour (0-20) H 02/26/24 08:59
Estimated Creat Clear 34 ml/min 03/04/24 05:10
Total Bilirubin 0.4 mg/dl (0.2-1.3) 03/04/24 12:43
AST 25 U/L (14-36) 03/04/24 12:43
ALT 19 U/L (0-35) 03/04/24 12:43
Alkaline Phosphatase 84 U/L (38-126) 03/04/24 12:43
C-Reactive Protein 134.20 mg/L (0.0-10.00) H 02/26/24 08:59
Most recent labs reviewed.
Micro Results:
03/02/24 16:33 Anaerobic Culture - Preliminary
Fluid Culture pending. Anaerobic cultures are examined after 3
days incubation. Additional information to follow.
03/04/24 09:14 Catheter Tip Culture - Preliminary
Catheter Tip No Growth After 48 Hours
03/02/24 19:57 Blood Culture - Preliminary
Blood/Venous No Growth in 72 hours- Final report to follow
03/02/24 19:10 Blood Culture - Preliminary
Blood/Venous No Growth in 72 hours- Final report to follow
03/02/24 16:33 Anaerobic Culture - Preliminary
Fluid Culture pending. Anaerobic cultures are examined after 3
days incubation. Additional information to follow.
03/02/24 16:33 Wound Culture - Preliminary
Back Viridans Streptococcus Group
Gram Stain - Preliminary
03/02/24 16:33 Wound Culture - Preliminary
Back Viridans Streptococcus Group
Gram Stain - Preliminary
03/02/24 16:33 Fungal Culture - Preliminary
Fluid Culture in progress.
Positive cultures are reported as soon as detected.
Final report to follow in four to five weeks.
03/02/24 16:33 Fungal Culture - Preliminary
Fluid Culture in progress.
Positive cultures are reported as soon as detected.
Final report to follow in four to five weeks.
Imaging:
03/05/24 MRI lumbar spine: Previous disc protrusion at L5-S1 has been resected. Posterior midline deep soft tissue collection adjacent to the spinous processes of L4 and L5, most likely postsurgical seroma/hematoma. There are a few small fluid
collections within the left paraspinal soft tissues at the level of the first sacral segment. Differential includes postsurgical hematoma/seroma versus small abscess. 3.6 x 2.5 x 4.1 collection to the left of midline anterior to the second and
third sacral segments, which appears to be associated with the superior margin of the left piriformis muscle, immediately adjacent to and contiguous with the S2 nerve. Possible considerations include dissection of postsurgical seroma/hematoma,
versus developing abscess. Circumferential enhancing soft tissue within the central canal at L5-S1. This may reflect reactive postsurgical changes and results in compression of the thecal sac. Mild thickening and enhancement of the nerve sheath of
the descending left S1 nerve root and the descending left S2 nerve root. Possible reactive neuropathy. An infectious process cannot be entirely excluded.
02/26/24 MRI lumbar spine: Limited exam due to motion. Patient refused IV contrast. No acute fracture. Chronic compression of the superior endplate of T11. There is increased anterior listhesis of L5 on S1, which in combination with increased
broad-based disk bulge/protrusion and increased facet arthropathy there is spur disk in the left lateral recess which impinges upon the exiting left L5 and descending left S1 nerve roots.
[2024-03-06] MEDS: ProAmatine PO ×2 (09:30→19:28)
[2024-03-06] MEDS: PACERONE 100 MG PO (09:33)
[2024-03-06] MEDS: LOPRESSOR 12.5 MG PO ×2 (09:33→20:49)
[2024-03-06] MEDS: TYLENOL 1000 MG PO ×3 (09:34→20:48)
--- NOTE | 2024-03-06 09:49 | W.PN.HOSP.TC ---
Today's Communication/Plan
-
Await drain placement
Assessment / Plan
Assessment / Plan
Gen-AAOx3, NAD
HEENT-NC, AT, anicteric, clear oral mm
Neck-supple
CV-reg, no M, +S1/S2
Lungs-clear B/L
Abd-soft, NT, ND
Ext-no edema
Musculoskeletal-no cyanosis, clubbing
Skin-warm and dry
Neuro-grossly non-focal
Psych-calm, cooperative
Lumbar epidural abscess -surprising finding during surgery on 03/02. No signs of infection on prior lumbar MRI this admission, but study was limited by lack of contrast and motion degradation. Currently on IV vancomycin awaiting culture results.
ID consulted. Source of infection unclear but concern given chemotherapy port in place. WBCs trending down.
Stable after left L5-S1 hemilaminectomy, foraminotomy. Evacuation of epidural abscess. Decompression of left S1 nerve root.
Wound culture shows Viridans Streptococcus. Blood cultures negative so far. Anticipate 6 weeks of antibiotics per infectious disease. Currently on IV ceftriaxone.
Chemotherapy port was removed 03/04 by IR over concern for possible source of infection.
Left piriformis abscess -IR consulted for drain placement today. Currently NPO. MRI from 03/05 reviewed.
Chronic HFpEF -stable.
Parox Atrial Fibrillation -resume Eliquis when okay with neurosurgery.
Mitral regurgitation - TTE 04/2023 with EF 62%, Stage II diastolic dysfunction
Essential HTN - continue BB
Orthostatic hypotension -currently on midodrine 5 mg 3 times daily.
Hyperlipidemia- continue statin.
Chronic Anemia - Hgb 11.8 g/dL. Stable. Follow trends.
Hx Stage IV Follicular Lymphoma
- Pt endorses recurrence last year. Continue management with Dr. Zee Perdomo at [place] outpatient
- on mini-R-CHOP via PORT previously, now on Rituxan
- Onc following; appreciate pre-op evaluation
- CT C/A/P with no reported lymphadenopathy
Code Status: Full
Dispo -back to [facility] for SNF when medically stable.
Anticipated Discharge: > 48 hours
Subjective/Interval History
-
Date of Service: March 06, 2024
Patient seen and examined. 4 out of 10 left buttock pain.
Objective Data
-
Labs:
Laboratory Results
03/06/24
06:00
WBC Pending
Hgb Pending
Hct Pending
Plt Count Pending
Vital Signs:
Vital Signs
Temp Pulse Resp BP Pulse Ox
99.2 F 76 16 131/61 94
03/06/24 07:25 03/06/24 07:25 03/06/24 07:25 03/06/24 09:30 03/06/24 07:25
I&O
03/05/24 03/06/24 03/07/24
06:59 06:59 06:59
Intake Total 960 / 960 560 / 560
Balance 960 / 960 560 / 560
Review of Systems
-
History Source: Patient
All other systems: Reviewed and negative
[2024-03-06] MEDS: NSS 250 IV (10:54)
[2024-03-06 11:01] LABS: % Basophils 0.3 % (0-2); % Eosinophils 0.8 % (0-6); % Immature Granulocytes 1.4 % (0-0.5); % Lymphocytes 3.2 % (20.5-51.1); % Monocytes 6.7 % (1.7-9.3); % Neutrophils 87.6 % (42.2-75.2); Absolute Eosinophils 0.1 10^3/uL (0-0.7); Absolute Immature Granulocytes 0.2 10^3/uL (0-0.05); Absolute Lymphocytes 0.4 10^3/uL (1.2-3.4); Absolute Monocytes 0.9 10^3/uL (0.1-0.6); Absolute Neutrophils 11.5 10^3/uL (1.4-6.5); Hematocrit 35.8 % (37.0-47.0); Hemoglobin 11.8 g/dL (12.0-16.0); Mean Corpuscular Hgb 31.1 pg (27.0-31.0); Mean Corpuscular Volume 94.2 fL (81.0-99.0); Mean Platelet Volume 10.2 fL (7.4-10.4); Nucleated Red Blood Cells % 0 %; Platelet Count 232 10^3/uL (130-400); Red Cell Dist. Width 12.4 % (11.5-14.5); White Blood Cell Count 13.2 10^3/uL (4.8-10.8)
[2024-03-06] MEDS: ProAmatine 5 MG PO (11:24)
[2024-03-06 11:58] LABS: Erythrocyte Sed Rate 39 mm/hour (0-20)
--- NOTE | 2024-03-06 14:25 | W.PN.UPDATE ---
Update Note
Progress Note Update
CT guided left pelvic fluid collection drained, yielding 5 cc of purulent fluid. Sent for C+S. Placed an 8.5 Polish drain.
[2024-03-06] MEDS: OSCAL 500 + D 500 MG PO (15:14)
[2024-03-06] MEDS: VISBIOME 1 CAP PO (15:14)
[2024-03-06] MEDS: CRESTOR 10 MG PO (15:14)
[2024-03-06] MEDS: B COMPLEX w/VITAMIN C 1 CAPLET PO (15:14)
[2024-03-06] MEDS: DEMADEX 20 MG PO (15:15)
[2024-03-06] MEDS: ROXICODONE 5 MG PO ×2 (15:15→20:49)
[2024-03-06] MEDS: NEURONTIN 100 MG PO ×2 (15:16→20:49)
[2024-03-06] MEDS: KCL 20 MEQ PO (15:16)
[2024-03-06] MEDS: COLACE 100 MG PO ×2 (15:16→20:49)
[2024-03-06] MEDS: NEURONTIN PO (17:13)
[2024-03-07] VITALS (9 sets, daily range): BP systolic 82–158; BP diastolic 47–99; PULSE 85–96; O2SAT 95; BMI 20.3
[2024-03-07] MEDS: ROXICODONE 5 MG PO ×2 (01:16→05:52)
[2024-03-07] MEDS: ROCEPHIN 2000 MG IV ×2 (05:51→17:52)
[2024-03-07] MEDS: STERILE WATER FOR INJECTION 20 ML IV ×2 (05:52→17:52)
[2024-03-07 06:27] LABS: % Basophils 0.2 % (0-2); % Eosinophils 1.4 % (0-6); % Immature Granulocytes 1.7 % (0-0.5); % Lymphocytes 5.4 % (20.5-51.1); % Neutrophils 83.3 % (42.2-75.2); Absolute Eosinophils 0.2 10^3/uL (0-0.7); Absolute Immature Granulocytes 0.2 10^3/uL (0-0.05); Absolute Lymphocytes 0.7 10^3/uL (1.2-3.4); Absolute Neutrophils 10.5 10^3/uL (1.4-6.5); Hematocrit 34.1 % (37.0-47.0); Hemoglobin 11.1 g/dL (12.0-16.0); Mean Corp Hgb Conc. 32.6 g/dL (33.0-37.0); Mean Corpuscular Hgb 30.5 pg (27.0-31.0); Mean Corpuscular Volume 93.7 fL (81.0-99.0); Mean Platelet Volume 10.1 fL (7.4-10.4); Nucleated Red Blood Cells % 0 %; Platelet Count 249 10^3/uL (130-400); Red Blood Cell Count 3.64 10^6/uL (4.20-5.40); Red Cell Dist. Width 12.4 % (11.5-14.5); White Blood Cell Count 12.6 10^3/uL (4.8-10.8)
[2024-03-07 06:52] LABS: Blood Urea Nitrogen 27 mg/dl (7-17); Calcium 8.6 mg/dl (8.4-10.2); Carbon Dioxide 35 mmol/L (22-30); Chloride 95 mmol/L (98-107); Estimated Creatinine Clearance 41 ml/min; Glucose 85 mg/dl (70-99); Potassium 3.9 mmol/L (3.5-5.1); Sodium 133 mmol/L (135-145); eGFR > 60.00
[2024-03-07] MEDS: KCL 20 MEQ PO (07:57)
[2024-03-07] MEDS: CRESTOR 10 MG PO (07:57)
[2024-03-07] MEDS: VISBIOME 1 CAP PO (07:57)
[2024-03-07] MEDS: DEMADEX 20 MG PO (07:57)
[2024-03-07] MEDS: PACERONE 100 MG PO (07:57)
[2024-03-07] MEDS: OSCAL 500 + D 500 MG PO (07:58)
[2024-03-07] MEDS: LOPRESSOR 12.5 MG PO ×2 (07:58→22:21)
[2024-03-07] MEDS: B COMPLEX w/VITAMIN C 1 CAPLET PO (07:58)
[2024-03-07] MEDS: ProAmatine PO (07:58)
[2024-03-07] MEDS: TYLENOL 1000 MG PO ×3 (07:58→21:02)
[2024-03-07] MEDS: COLACE 100 MG PO ×2 (07:58→21:01)
[2024-03-07] MEDS: NEURONTIN 100 MG PO ×3 (07:58→21:01)
--- NOTE | 2024-03-07 10:03 | PTCARENOTE ---
pt aaox3. states pain in left buttock at the drain site. pain med given as ordered. room air breath sounds clear. lower back dressing c/d/i. drain dressing c/d/i. drain flushed with Steril saline as ordered. draining thick purulent drainage.
spoke to pt daughter twice about pt possible discharge today. explained that the hospitalist will be in to see the pt and decide about discharge. will call daughter if any change in pt status.
--- NOTE | 2024-03-07 11:08 | W.PN.ID1 ---
Date of Service
Date of Service: March 07, 2024
Today's Communication
Continue abx.
Assessment / Plan
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
Para-spinal collection - s/p aspiration / drainage 03/06/24
Leukocytosis
Elevated CRP
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
Large B-cell lymphoma; on maintenance Rituxan
Atrial fibrillation
HTN
Recommendations:
Continue ceftriaxone 2 g IV every 12 hours to complete a 6-week course of therapy (through 04/14/24)
Monitor white count and temperature curve.
Port previously removed. Blood cultures negative. PICC line placed
����������������������������������������������������������
Chief Complaint
-: Other (Epidural abscess)
Subjective / Review of Systems
Review of Systems: No Fever and No Chills
Vital Signs / Physical Exam
Vital Signs
Vital Signs
Temp Pulse Resp BP Pulse Ox
99.1 F 80 18 133/51 94
03/07/24 07:10 03/07/24 07:58 03/07/24 07:10 03/07/24 07:58 03/07/24 07:10
Physical Exam
Constitutional: No Acute Distress, Comfortable and Non-toxic
Eyes: Sclera Anicteric
Cardiovascular: S1/S2; Negative S3/S4
Pulmonary: Clear
Gastrointestinal: Soft, Non Tender and Non Distended
Extremities: Negative Edema, Cyanosis or Erythema
Skin: Other (Gluteal drain in place with scant seropurulent drainage.)
Neurological: Awake and Alert
Psychological: Calm
Objective Data
Lab Data
Lab Results
03/07/24 05:58
03/07/24 05:58
ESR 39 mm/hour (0-20) H 03/06/24 10:44
Estimated Creat Clear 41 ml/min 03/07/24 05:58
Total Bilirubin 0.4 mg/dl (0.2-1.3) 03/04/24 12:43
AST 25 U/L (14-36) 03/04/24 12:43
ALT 19 U/L (0-35) 03/04/24 12:43
Alkaline Phosphatase 84 U/L (38-126) 03/04/24 12:43
C-Reactive Protein 207.90 mg/L (0.0-10.00) H 03/06/24 10:44
Most recent labs reviewed.
Micro Results:
03/06/24 14:28 Wound Culture - Preliminary
Abscess No growth
Gram Stain - Many WBC's / Many GPC's
03/02/24 16:33 Anaerobic Culture - Final
Fluid NO ANAEROBES ISOLATED
03/02/24 16:33 Wound Culture - Final
Back Viridans Streptococcus Group
Gram Stain - Final
03/02/24 16:33 Anaerobic Culture - Final
Fluid NO ANAEROBES ISOLATED
03/02/24 19:57 Blood Culture - Preliminary
Blood/Venous No Growth in 4 days- Final report to follow
03/02/24 19:10 Blood Culture - Preliminary
Blood/Venous No Growth in 4 days- Final report to follow
03/02/24 16:33 Wound Culture - Preliminary
Back Viridans Streptococcus Group
Gram Stain - Preliminary
03/04/24 09:14 Catheter Tip Culture - Preliminary
Catheter Tip No Growth After 48 Hours
03/02/24 16:33 Fungal Culture - Preliminary
Fluid Culture in progress.
Positive cultures are reported as soon as detected.
Final report to follow in four to five weeks.
03/02/24 16:33 Fungal Culture - Preliminary
Fluid Culture in progress.
Positive cultures are reported as soon as detected.
Final report to follow in four to five weeks.
Imaging:
03/05/24 MRI lumbar spine: Previous disc protrusion at L5-S1 has been resected. Posterior midline deep soft tissue collection adjacent to the spinous processes of L4 and L5, most likely postsurgical seroma/hematoma. There are a few small fluid
collections within the left paraspinal soft tissues at the level of the first sacral segment. Differential includes postsurgical hematoma/seroma versus small abscess. 3.6 x 2.5 x 4.1 collection to the left of midline anterior to the second and
third sacral segments, which appears to be associated with the superior margin of the left piriformis muscle, immediately adjacent to and contiguous with the S2 nerve. Possible considerations include dissection of postsurgical seroma/hematoma,
versus developing abscess. Circumferential enhancing soft tissue within the central canal at L5-S1. This may reflect reactive postsurgical changes and results in compression of the thecal sac. Mild thickening and enhancement of the nerve sheath of
the descending left S1 nerve root and the descending left S2 nerve root. Possible reactive neuropathy. An infectious process cannot be entirely excluded.
02/26/24 MRI lumbar spine: Limited exam due to motion. Patient refused IV contrast. No acute fracture. Chronic compression of the superior endplate of T11. There is increased anterior listhesis of L5 on S1, which in combination with increased
broad-based disk bulge/protrusion and increased facet arthropathy there is spur disk in the left lateral recess which impinges upon the exiting left L5 and descending left S1 nerve roots.
--- NOTE | 2024-03-07 11:44 | W.PN.HOSP.TC ---
Today's Communication/Plan
-
dc to SNF later today
Assessment / Plan
Assessment / Plan
Assessment:
Lower back pain
- Stable after left L5-S1 hemilaminectomy, foraminotomy. Evacuation of epidural abscess. Decompression of left S1 nerve root.
- pain control
Lumbar epidural abscess - surprising finding during surgery on 03/02. No signs of infection on prior lumbar MRI this admission, but study was limited by lack of contrast and motion degradation.
- source unclear. PORT a consideration and that was removed
- ID following patient: ceftriaxone 2 g IV every 12 hours to complete a 6-week course of therapy (through 04/14/24). ID follow up outpatient.
- Neuro-Sx follow up outpatient in 2 weeks
Left piriformis abscess
- s/p IR drain placement 03/06
- 10 cc flush daily
Chronic HFpEF - stable.
Parox Atrial Fibrillation - resume Eliquis when okay with neurosurgery.
Mitral regurgitation - TTE 04/2023 with EF 62%, Stage II diastolic dysfunction
Essential HTN - continue BB
Orthostatic hypotension - currently on midodrine 5 mg 3 times daily.
Hyperlipidemia - continue statin.
Chronic Anemia - Hgb 11.1 g/dL. Stable. Follow trends.
Hx Stage IV Follicular Lymphoma
- Pt endorses recurrence last year. Continue management with Dr. Zee Perdomo at [place] outpatient
- on mini-R-CHOP via PORT previously, now on Rituxan
- Onc following; appreciate pre-op evaluation
- CT C/A/P with no reported lymphadenopathy
Code Status: Full
More than 30 minutes spent in discharge including
Final examination of the patient
Summarizing hospital stay
Instructions for continuing care to all relevant caregivers
Preparation of discharge records, prescriptions, and referral forms
Total time spent (in minutes): 42
Anticipated Discharge: Today
Subjective/Interval History
-
Date of Service: March 07, 2024
no new complaints
pain controlled
Objective Data
-
Labs:
Laboratory Results
03/07/24
05:58
WBC 12.6 H
Hgb 11.1 L
Hct 34.1 L
Plt Count 249
Sodium 133 L
Potassium 3.9
Chloride 95 L
Carbon Dioxide 35 H
BUN 27 H
Creatinine 0.8
Glucose 85
Calcium 8.6
Vital Signs:
Vital Signs
Temp Pulse Resp BP Pulse Ox
99.1 F 80 18 133/51 94
03/07/24 07:10 03/07/24 07:58 03/07/24 07:10 03/07/24 07:58 03/07/24 07:10
I&O
03/06/24 03/07/24 03/08/24
06:59 06:59 06:59
Intake Total 560 / 560 1115 / 1115 250 / 250
Output Total
Balance 560 / 560 1105 / 1105 250 / 250
Physical Exam
-
General: No Apparent Distress
HEENT: Normocephalic and Atraumatic
Respiratory: Negative Wheezes
Cardiac: Regular Rhythm and S1/S2
GI: Soft
Genito-urinary: No Costovertebral Tender
Neuro: AO x 3
Hematologic / Lymphatic: No Lymphadenopathy
Psych: Calm
Data Reviewed
-
Total Time Spent with Patient (in minutes): 42
Labs: Labs Reviewed by me
--- NOTE | 2024-03-07 12:09 | W.DS.TRANS ---
DC Summary - Section Chief
-
Discharge Instructions:
Sleep Apnea Risk Low
Discharge Diagnosis/Procedures epidural abscess (lumbar) with evacuation 03/02.
with L buttocks abscess (drain in place). PICC
line for antibiotics.
Diet Regular
Activity As tolerated
Other Services OT,PT
Instructions:
Stand-Alone Forms:
Changes to Home Medications: No
Discharge Medications:
DC Medications w/original date entered in [employer]
apixaban 2.5 mg tablet (Eliquis) 2.5 mg PO BID Blood Clot Prevention/Tx 12/02/20
metoprolol tartrate 25 mg tablet 12.5 mg PO BID Blood Pressure 12/02/20
potassium chloride 20 mEq tablet,extended release(part/cryst) (Klor-Con M) 20 meq PO DAILY Electrolyte Repletion 12/02/20
rosuvastatin 5 mg tablet 10 mg PO DAILY High Cholesterol 12/02/20
torsemide 20 mg tablet 20 mg PO DAILY Fluid Retention/Swelling 12/02/20
Lactobac no.2-Bifidobac no.1-S. thermo 112.5 billion cell capsule (Visbiome) 1 cap PO DAILY probiotic 02/26/24
Req-Q Womens 1 tab PO DAILY Supplement 02/26/24
Res-Q 1 cap PO DAILY Supplement 02/26/24
Uqora 1 cap PO DAILY urinary tract health 02/26/24
amiodarone 100 mg tablet 100 mg PO DAILY Arrhythmia 02/26/24
calcium carbonate 500 mg-vitamin D3 10 mcg (400 unit) tablet (Calcium 500 + D) 1 tab PO DAILY Supplement 02/26/24
coQ10 (ubiquinol) 100 mg capsule 100 mg PO DAILY Supplement 02/26/24
ibandronate 150 mg tablet 150 mg PO QMONTH osteoporosis 02/26/24
dubycjde-tbhiks-tbygk extract 5 mg-6 mg-150 mg capsule (Fruit and Vegetable Daily) 1 cap PO DAILY Supplement 02/26/24
vitamin B complex 1 tab PO DAILY Supplement 02/26/24
acetaminophen 325 mg tablet 650 mg (2 x 325 mg) PO Q4HPRN PRN mild pain/FISCHER/temp> 100.4F #60 tabs 03/07/24
acetaminophen 500 mg tablet (Tylenol Extra Strength) 1,000 mg (2 x 500 mg) PO TID #60 tabs 03/07/24
ceftriaxone 2 gram solution for injection 2,000 mg IV Q12H #78 ea 03/07/24
gabapentin 100 mg capsule 100 mg PO TID #90 caps 03/07/24
midodrine 5 mg tablet 5 mg PO TID@0800,1300,1800 #90 tabs 03/07/24
oxycodone 5 mg tablet 5 mg PO Q4HPRN PRN severe pain #20 tabs 03/07/24
tramadol 50 mg tablet 50 mg PO Q6HPRN PRN moderate pain #20 tabs 03/07/24
Home Medication Changes
Pending Results: No
Total time spent discharging patient (in min): 42
--- NOTE | 2024-03-07 12:50 | CM ---
Reviewed the chart notes and spoke with the patient at the bedside. IMM signed and placed on chart. CM spoke with Bernice Liaison to the [facility], unfortunately can not accept until tomorrow after 9am. RN, attending, patient and patient's
daughter informed. Transportation options and estimation of wheelchair van costs explained (approx. $75 to $100 est) and accepted.
Plan: Discharge to the [facility] tomorrow. Covid screen will be needed within 24hrs of admission.
Call report to: [phone]
Fax report to: [phone]
Transport form on chart. Patient's daughter provide with Acute Care information for w/c van payment.
--- NOTE | 2024-03-07 12:58 | PN.NS ---
Addendum entered and electronically signed by Ana Covington MD 03/07/24 13:21:
Ok to restart Eliquis.
Original Note:
Subjective
-
Patient seen and examined. Discussed with hospital medicine. Patient will be cleared for discharge from medical perspective to [facility] rehab shortly. Events from the weekend noted. Patient was noted to have significant left buttock
pain, which prompted follow-up MRI, which revealed left piriformis collection, likely abscess. Patient went for interventional radiology guided drainage of this collection. Patient seen and examined. She reports that her left lower extremity
radicular pain has significantly improved
Physical Exam
-
Exam:
Exam:
Awake, alert, no apparent distress
Cranial nerves II to XII are grossly intact
Motor: 5/5 strength in bilateral upper extremities, no pronator drift. 3/5 strength in left EHL, otherwise full strength in lower extremities in all other muscle groups.
Head is normocephalic atraumatic.
Neck is supple.
Breathing nonlabored.
Pulses palpable.
Abdomen nondistended nontender.
Gait: Antalgic gait, ambulates with walker.
MRI of the lumbar spine performed on 02/26/2024 was reviewed. At L5-S1, there is evidence of cysts soft tissue noted within the left L5-S1 neuroforamen/lateral recess. This appears to be T2 hypointense. Differential diagnosis may be disc
extrusion/herniation versus synovial cyst? Imaging was reviewed with radiology, Dr. Wero Chen, on 02/27/2024 who reviewed the MRI scan, does concur that findings at the left L5-S1 neuroforamen can be consistent with disc extrusion/sequestered
disc versus synovial cyst less likely.
MRI lumbar spine 03/05/2024: Reveals adequate decompression at L5-S1 on the left side there is a small subcutaneous collection. There is a large left piriformis collection. Compared to the CAT scan of the chest abdomen pelvis which was completed
upon presentation this appears marginally bigger.
Incision: No drainage noted. There is some mild erythema surrounding the left aspect of the incision, minimally tender to touch. No evidence of fluctuance.
Dressing is dry with no evidence of staining or drainage noted on the dressing.
This was removed, and clean dressing applied.
Westley-Meraz drain from left piriformis abscess noted to be yellowish-mendoza/purulent in nature.
Problems
-
Problem Status Onset Code
Leg pain M79.606
Assessment / Plan
-
Postop day #5 from left-sided L5-S1 laminoforaminotomy evacuation of epidural abscess.
Status post IR guided drainage of left piriformis abscess, with cloudy grayish fluid and Westley-Meraz drain.
Continue local wound care, monitor for signs of infection.
Patient to follow-up in the office with me in approximately 2 weeks.
Discussion held with patient, patient's daughter, Khushbu, via telephone extensively at bedside.
Today's Communication
-
Discussed with patient, nurse, and hospital medicine
[2024-03-07] MEDS: ProAmatine 5 MG PO ×2 (13:28→17:52)
[2024-03-07] MEDS: ULTRAM 50 MG PO (23:01)
[2024-03-08 03:08] VITALS: BP 107/61
[2024-03-08] MEDS: STERILE WATER FOR INJECTION 20 ML IV (05:12)
[2024-03-08] MEDS: ROCEPHIN 2000 MG IV (05:12)
[2024-03-08] MEDS: ULTRAM 50 MG PO (05:12)
[2024-03-08 05:42] VITALS: BMI 19.9
[2024-03-08 07:00] VITALS: BP 109/54
[2024-03-08] MEDS: ProAmatine 5 MG PO (08:47)
[2024-03-08] MEDS: B COMPLEX w/VITAMIN C 1 CAPLET PO (08:47)
[2024-03-08] MEDS: TYLENOL 1000 MG PO (08:47)
[2024-03-08] MEDS: CRESTOR 10 MG PO (08:47)
[2024-03-08] MEDS: LOPRESSOR 12.5 MG PO (08:48)
[2024-03-08] MEDS: PACERONE 100 MG PO (08:48)
[2024-03-08] MEDS: COLACE 100 MG PO (08:48)
[2024-03-08] MEDS: OSCAL 500 + D 500 MG PO (08:48)
[2024-03-08] MEDS: NEURONTIN 100 MG PO (08:48)
[2024-03-08] MEDS: VISBIOME 1 CAP PO (08:48)
[2024-03-08] MEDS: DEMADEX 20 MG PO (08:48)
[2024-03-08] MEDS: KCL 20 MEQ PO (08:48)
[2024-03-08 09:00] LABS: COVID-19 Antigen Negative (Negative)
[2024-03-08] MEDS: ELIQUIS 5 MG PO (10:40)
--- NOTE | 2024-03-08 10:45 | W.PN.HOSP.TC ---
Today's Communication/Plan
-
dc to SNF today
Assessment / Plan
Assessment / Plan
Assessment:
Lower back pain
- Stable after left L5-S1 hemilaminectomy, foraminotomy. Evacuation of epidural abscess. Decompression of left S1 nerve root.
- pain control
Lumbar epidural abscess - surprising finding during surgery on 03/02. No signs of infection on prior lumbar MRI this admission, but study was limited by lack of contrast and motion degradation.
- source unclear. PORT a consideration and that was removed
- ID following patient: ceftriaxone 2 g IV every 12 hours to complete a 6-week course of therapy (through 04/14/24). ID follow up outpatient.
- Neuro-Sx follow up outpatient in 2 weeks
Left piriformis abscess
- s/p IR drain placement 03/06
- 10 cc flush daily
Chronic HFpEF - stable.
Parox Atrial Fibrillation - resume Eliquis when okay with neurosurgery.
Mitral regurgitation - TTE 04/2023 with EF 62%, Stage II diastolic dysfunction
Essential HTN - continue BB
Orthostatic hypotension - currently on midodrine 5 mg 3 times daily.
Hyperlipidemia - continue statin.
Chronic Anemia - Hgb 11.1 g/dL. Stable. Follow trends.
Hx Stage IV Follicular Lymphoma
- Pt endorses recurrence last year. Continue management with Dr. Zee Perdomo at [facility] outpatient
- on mini-R-CHOP via PORT previously, now on Rituxan
- Onc following; appreciate pre-op evaluation
- CT C/A/P with no reported lymphadenopathy
Code Status: Full
More than 30 minutes spent in discharge including
Final examination of the patient
Summarizing hospital stay
Instructions for continuing care to all relevant caregivers
Preparation of discharge records, prescriptions, and referral forms
Total time spent (in minutes): 42
Anticipated Discharge: Today
Subjective/Interval History
-
Date of Service: March 08, 2024
no new complaints
for dc today to SNF
Objective Data
-
Vital Signs:
Vital Signs
Temp Pulse Resp BP Pulse Ox
98.4 F 85 18 109/54 99
03/08/24 07:00 03/08/24 07:00 03/08/24 07:00 03/08/24 07:00 03/08/24 07:00
I&O
03/07/24 03/08/24 03/09/24
06:59 06:59 06:59
Intake Total 1115 / 1115 730 / 730 250 / 250
Output Total
Balance 1105 / 1105 725 / 725 240 / 240
Physical Exam
-
General: Well Developed and Well Nourished
HEENT: Normocephalic and Atraumatic
Respiratory: Negative Wheezes or Rales
Cardiac: Regular Rhythm and S1/S2
GI: Soft and Nontender
Genito-urinary: No Costovertebral Tender
Neuro: AO x 3
Hematologic / Lymphatic: No Lymphadenopathy
Psych: Calm
Data Reviewed
-
Total Time Spent with Patient (in minutes): 42
Labs: Labs Reviewed by me
--- NOTE | 2024-03-08 10:57 | PTCARENOTE ---
Attempted to give Report to RN at [facility], unable to take at this time. This RN left phone number for call back.
[2024-03-08 11:00] VITALS: BP 123/70
--- NOTE | 2024-03-08 11:03 | CM ---
w/c van could not olive picker until 3:30 pm. Spoke to patient,dgtr and nurse. Patient's dgtr to transport to [facility].
Shakir Queen at [facility] on plan.
Call report to: [phone]
Fax report to: [phone]
== END 2024-03-08 12:37 | DRG 515 ==
LOC: 2 SOUTH 07:59
PROVIDERS: Hospitalist; Radiology Diagnostic Radiology; Radiology Vascular & Interventional Radiology; ADMITTING PHYSICIAN Internal Medicine; ATTENDING PHYSICIAN Internal Medicine; CONSULT PHYSICIAN Neurological Surgery; EMERGENCY PHYSICIAN Emergency Medicine; FAMILY PHYSICIAN Family Medicine; OTHER PHYSICIAN Internal Medicine; OTHER PHYSICIAN Internal Medicine Hematology & Oncology; OTHER PHYSICIAN Internal Medicine Infectious Disease
PROC: 01NR0ZZ Release Sacral Nerve, Open Approach (ICD-10-PCS; 2024-03-02)
PROC: 00CU0ZZ Extirpation of Matter from Spinal Canal, Open Approach (ICD-10-PCS; 2024-03-02)
PROC: 0JPT0WZ Removal of Totally Implantable Vascular Access Device from Trunk Subcutaneous Tissue and Fascia, Open Approach (ICD-10-PCS; 2024-03-04)
PROC: 0W9J30Z Drainage of Pelvic Cavity with Drainage Device, Percutaneous Approach (ICD-10-PCS; 2024-03-06)
PROC: 02HV33Z Insertion of Infusion Device into Superior Vena Cava, Percutaneous Approach (ICD-10-PCS; 2024-03-06)
DX: M47.27 Other spondylosis with radiculopathy, lumbosacral region (principal); G06.1 Intraspinal abscess and granuloma; C82.90 Follicular lymphoma, unspecified, unspecified site; I50.32 Chronic diastolic (congestive) heart failure; E87.1 Hypo-osmolality and hyponatremia; D84.821 Immunodeficiency due to drugs; M60.08 Infective myositis, other site; C85.10 Unspecified B-cell lymphoma, unspecified site; M51.16 Intervertebral disc disorders with radiculopathy, lumbar region; M43.17 Spondylolisthesis, lumbosacral region; I11.0 Hypertensive heart disease with heart failure; I48.0 Paroxysmal atrial fibrillation; I34.0 Nonrheumatic mitral (valve) insufficiency; I44.0 Atrioventricular block, first degree; R79.82 Elevated C-reactive protein (CRP); M21.372 Foot drop, left foot; M54.9 Dorsalgia, unspecified; R61 Generalized hyperhidrosis; M48.061 Spinal stenosis, lumbar region without neurogenic claudication; I95.1 Orthostatic hypotension; B95.4 Other streptococcus as the cause of diseases classified elsewhere; E78.00 Pure hypercholesterolemia, unspecified; D64.9 Anemia, unspecified; Z96.642 Presence of left artificial hip joint; Z90.710 Acquired absence of both cervix and uterus; Z79.01 Long term (current) use of anticoagulants; Z88.1 Allergy status to other antibiotic agents; Z88.8 Allergy status to other drugs, medicaments and biological substances; Z91.048 Other nonmedicinal substance allergy status; Z11.52 Encounter for screening for COVID-19; Z79.69 Long term (current) use of other immunomodulators and immunosuppressants
CPT/HCPCS: 88304; 88311; 36590; 49406; 71045; 71270; 72100; 72148; 72158; 73701; 74178; 76000; 77001; 80048; 80053; 80076; 80202; 81003; 81015; 82550; 85025; 85027; 85652; 86140; 87040; 87070; 87075; 87077; 87084; 87102; 87186; 87205; 87811; 93005; 96374; 96376; 97116; 97162; 97164; 97167; 97168; 97530; 97535; 99152; 99285; A9575; C1729; C1769; Q9967

== ENCOUNTER → 2024-03-18 12:10 | Outpatient (REF) | payer MEDICARE, BC, SELFPAY ==
[2024-03-18 13:00] VITALS: BP 148/71; BP_SYST 61
[2024-03-18 13:36] VITALS: BP 149/66; BP_SYST 64
[2024-03-18 13:50] VITALS: BP 149/66
== END ==
LOC: RADI 12:10
PROVIDERS: ATTENDING PHYSICIAN Internal Medicine Geriatric Medicine; FAMILY PHYSICIAN Family Medicine
DX: K65.1 Peritoneal abscess (principal)
CPT/HCPCS: 49424; 76080

== ENCOUNTER 2024-04-06 14:31 | Inpatient (IN) | payer MEDICARE, BC, SELFPAY ==
[2024-04-06] VITALS (9 sets, daily range): BP systolic 108–139; BP diastolic 53–92; BMI 20.9; BMI 20.6
[2024-04-06 09:06] LABS: % Basophils 0.5 % (0-2); % Eosinophils 0.7 % (0-6); % Immature Granulocytes 0.3 % (0-0.5); % Lymphocytes 5.6 % (20.5-51.1); % Monocytes 8.3 % (1.7-9.3); % Neutrophils 84.6 % (42.2-75.2); Absolute Eosinophils 0.1 10^3/uL (0-0.7); Absolute Lymphocytes 0.4 10^3/uL (1.2-3.4); Absolute Monocytes 0.6 10^3/uL (0.1-0.6); Absolute Neutrophils 6.3 10^3/uL (1.4-6.5); Hemoglobin 10.9 g/dL (12.0-16.0); Mean Corpuscular Hgb 31.3 pg (27.0-31.0); Mean Corpuscular Volume 94.8 fL (81.0-99.0); Mean Platelet Volume 10.2 fL (7.4-10.4); Nucleated Red Blood Cells % 0 %; Platelet Count 247 10^3/uL (130-400); Red Blood Cell Count 3.48 10^6/uL (4.20-5.40); Red Cell Dist. Width 14.3 % (11.5-14.5); White Blood Cell Count 7.5 10^3/uL (4.8-10.8)
[2024-04-06 09:10] LABS: Urine Albumin Trace (Neg - Trace); Urine Bilirubin Negative (Negative); Urine Character Clear (Clear); Urine Color Yellow; Urine Glucose Negative (Negative); Urine Ketone Trace (Negative); Urine Leukocyte Negative (Negative); Urine Nitrite Negative (Negative); Urine Occult Blood Trace (Negative); Urine Urobilinogen Negative (Neg - 1+)
--- NOTE | 2024-04-06 09:21 | ED.GENMED ---
History of Present Illness
General
Chief Complaint: Abdominal Pain
Source: patient
Exam Limitations: none
Time Seen by Provider: 04/06/24 09:06
Nursing documentation reviewed up to this point in time: agreed with
Travel History
Have you had any contact with someone who has COVID-19?: No
Do you have any symptoms of coronavirus? Fever > 100 degrees, chills, cough, shortness of breath, sore throat, loss of taste or smell, muscle aches, or headache?: No
History of Present Illness
History of Present Illness:
88-year-old female past medical history of A-fib currently on amiodarone and Eliquis, CHF presenting to the emergency department today with concerns of lower abdominal discomfort that was persisting throughout the night with radiation to the back.
No associated nausea vomiting diarrhea changes in urination or changes in bowel movements. Of note the patient recently had a piriformis abscess as well as left-sided L5-S1 laminal foraminotomy evacuation of epidural abscess patient that was
treated by neurosurgery here she had a drain in place for period of time but that has since been removed she is currently on ongoing IV antibiotics through a PICC line. Appears to be on ceftriaxone every 12 hours. Missed her dose this morning.
Past History
Past History
ED Past Medical History: Arrthythmia (Atrial fib), Cancer (NonHodgkins Lymphoma) and HTN
ED Past Surgical History: Gynecological (Hysterectomy)
Social History
Tobacco: Non-smoker
Alcohol: Occasional
Drug: None
Personal:
Living: with family
Review of Systems
Review of Systems
Allergies reviewed?: Yes
All Other Systems: ROS reviewed and negative except as documented in HPI and ROS
Phy Exam
Physical Exam
Physical Exam:
GENERAL: Alert , in no apparent distress
EYE: pupils equal and reactive
NECK: Supple, no significant adenopathy.
ENT: o/p clr, mmm.
CARDIAC: Regular rate and rhythm .
LUNGS: Clear breath sounds bilaterally, no acute respiratory distress, no wheezes/rales/rhonchi
ABDOMEN: Soft, without focal tenderness, no r/g, no cvat
NEUROLOGICAL: Alert and oriented, no focal neuro deficits
SKIN: Warm and dry, skin intact.
MUSCULOSKELETAL: No edema, well perfused.
PSYCH: Normal and appropriate interaction.
Course
Orders/Labs/Results
Orders:
Orders
04/06/24 08:46
Complete Blood Count/With Diff Urgent
Comprehensive Metabolic Panel Urgent
Lipase Urgent
Urinalysis Reflex To Culture Urgent
Date Specimen was Collected: 04/06/24
Time Specimen was Collected: 08:44
Urine Microscopic Reflex Cult Urgent
04/06/24 09:17
CT Abd/pel W Iv And Oral Contr Urgent
Comment:
Reason For Exam: lower abd pain recent prirform abscess
Iohexol [Omnipaque] See Protocol PO NOW STA
Abnormal Lab Results
04/06/24
08:46
RBC 3.48 L 10^6/uL
(4.20-5.40)
Hgb 10.9 L g/dL
(12.0-16.0)
Hct 33.0 L %
(37.0-47.0)
MCH 31.3 H pg
(27.0-31.0)
Absolute Lymphs (auto) 0.4 L 10^3/uL
(1.2-3.4)
Neutrophils % 84.6 H %
(42.2-75.2)
Lymphocytes % 5.6 L %
(20.5-51.1)
BUN 23 H mg/dl
(7-17)
Glucose 132 H mg/dl
(70-99)
Total Bilirubin 1.7 H mg/dl
(0.2-1.3)
AST 271 H U/L
(14-36)
ALT 110 H U/L
(0-35)
Total Protein 5.7 L g/dl
(6.3-8.2)
Lipase > 4000 H* U/L
(23-300)
Urine Ketones Trace A
(Negative)
Ur Occult Blood Reflex Trace A
(Negative)
04/06/24 08:46
04/06/24 08:46
Vital Signs
Initial and Last Documented VS:
Initial Vital Signs
Temp Pulse Resp BP Pulse Ox
97.8 F 70 12 123/54 97
04/06/24 08:45 04/06/24 08:45 04/06/24 08:45 04/06/24 08:45 04/06/24 08:45
Last Documented Vital Signs
Temp Pulse Resp BP Pulse Ox
97.9 F 72 15 133/61 97
04/06/24 11:39 04/06/24 11:39 04/06/24 11:39 04/06/24 11:39 04/06/24 11:39
MDM/Problems Addressed
MDM/Problems Addressed:
80-year-old female presenting to the emergency department today with concerns of lower abdominal pain with radiation to her back throughout the night last night into this morning feels better at this point. No GI symptoms. Of note recently had
neurosurgical intervention for piriformis abscess that was extending to the low back. Has been on IV antibiotics for this and claims that she has been doing well otherwise. Vital signs normal here labs without white count hemoglobin 10.9. Labs do
show significantly elevated lipase level of greater than 4000 was started on fluids additionally had an elevated bilirubin level of 1.7 AST of 271 and ALT of 110. CT scan was performed that showed significantly enlarged and thickened gallbladder
consistent with cholecystitis Case discussed with surgery that we will review the case. Admitted to medicine patient stable throughout ER stay.
*Critical Care Note
Total Time (30-74mins, 75-104mins- exclusive of procedures): Not Applicable
ED Attending Note
-
Portions of this chart may have been created with voice recognition software.� Occasional wrong word or��sound alike� substitutions may have occurred due to the inherent limitations of voice recognition software.
Discharge Plan
Departure
Patient Disposition: Admit
Date of Disposition: 04/06/24
Time of Disposition: 12:50
Admit to: Med/Surg
Admit to doctor: [facility]
Presentation/result/management discussed w/ accepting MD/DO: Hospitalist
Patient with high blood pressure during this ER visit?: No
Condition: Good
Covid-19: Not Applicable
Discharge Problem:
Cholecystitis, Acute pancreatitis
Prescriptions:
No Action
torsemide 20 MG tablet
20 mg PO DAILY
rosuvastatin 5 MG tablet
10 mg PO DAILY
metoprolol tartrate 25 MG tablet
12.5 mg PO BID
Eliquis 2.5 MG tablet
2.5 mg PO BID
potassium chloride [Klor-Con M20] 20 MEQ tablet,ER particles/crystals
20 meq PO DAILY
amiodarone 100 mg Tablet
100 mg PO DAILY
ibandronate 150 mg Tablet
150 mg PO QMONTH
Visbiome 112.5 billion cell Capsule
1 cap PO DAILY
vitamin B complex Tablet
1 tab PO DAILY
calcium carbonate-vitamin D3 [Calcium 500 + D] 500 mg-10 mcg (400 unit) Tablet
1 tab PO DAILY
coQ10 (ubiquinol) 100 mg Capsule
100 mg PO DAILY
ondansetron HCl [Zofran] 4 mg Tablet
4 mg PO DAILY
pantoprazole 20 mg Tablet,Delayed Release (Dr/Ec)
20 mg PO DAILY
docusate sodium [Colace] 100 mg Capsule
100 mg PO DAILY
midodrine 2.5 mg Tablet
2.5 mg PO TID
Rx Instructions:
take with 5mg TID
Theragen Tablet
1 tab PO DAILY
midodrine 5 mg tablet
5 mg PO TID
acetaminophen [Tylenol Extra Strength] 500 mg tablet
500 mg PO TID
gabapentin 100 mg capsule
100 mg PO TID
ceftriaxone 2 gram recon soln
2,000 mg IV Q12H
Rx Instructions:
through 04/14 for 37 days starting
Referrals:
Lucio Ng DO [Family Provider] -
Interventions
Interventions:
*Risk Screen - Suicide Last Done: 04/06/24 08:45
*General Assessment Last Done: 04/06/24 08:45
*Neglect/Abuse Screening Last Done: 04/06/24 08:45
ED- Fall Risk Assessment Last Done: 04/06/24 08:45
*ED COVID-19 Vaccine History Last Done: 04/06/24 08:45
QW-Jmwodl-Extfppbufn Assessment Last Done: 04/06/24 08:45
Discharge Date and Time
Print Language: SPANISH
[2024-04-06 09:23] LABS: ALT (SGPT) 110 U/L (0-35); AST (SGOT) 271 U/L (14-36); Albumin 3.7 g/dl (3.5-5.0); Alkaline Phosphatase 90 U/L (38-126); Blood Urea Nitrogen 23 mg/dl (7-17); Carbon Dioxide 30 mmol/L (22-30); Chloride 98 mmol/L (98-107); Estimated Creatinine Clearance 36 ml/min; Glucose 132 mg/dl (70-99); Potassium 3.8 mmol/L (3.5-5.1); Sodium 137 mmol/L (135-145); Total Bilirubin 1.7 mg/dl (0.2-1.3); Total Protein 5.7 g/dl (6.3-8.2); eGFR > 60.00
[2024-04-06 09:35] LABS: Urine Amorphous Seen; Urine Hyaline Cast 0-2 /LPF (0-2); Urine Mucus Few
[2024-04-06 09:36] LABS: Urine Red Blood Cell 0-2 /HPF (0-2); Urine Urothelial Cell 0-2 /LPF (FEW)
[2024-04-06 09:37] LABS: Urine White Cell 0-2 /HPF (0-5)
[2024-04-06] MEDS: OMNIPAQUE 50 ML PO (09:39)
[2024-04-06 10:40] LABS: Lipase > 4000 U/L (23-300)
--- NOTE | 2024-04-06 14:00 | W.PN.UPDATE ---
Update Note
Progress Note Update
I saw and examined the patient.
Amber Hawthorne note was reviewed and I agree with the note.
Note for billing purpose
Comment:
88-year-old female extensive past medical history of recent lumbar surgery status post left L5-S1 hemilaminectomy, foraminotomy, and decompression of left S1 nerve root, left epidural abscess status post evacuation, left piriform abscess status post
IR drain placement status post drain removal, chronic HFpEF, atrial fibrillation, mitral regurgitation, hypertension with orthostatic hypotension, hyperlipidemia, chronic anemia, stage IV follicular lymphoma was presented with abdominal pain.
Patient stated of severe abdominal pain radiating to the back.
Gen: No acute distress, sitting in ER gurney comfortably
Cardiac S1-S2 regular rate rhythm
Pulmonary not tachypneic not use accessory muscles
Abdomen positive bowel sounds, nondistended, mild tender to palpation to periumbilical region, no guarding or rigidity
Extremities no edema
Neuro awake alert and oriented
Psych pleasant, talkative
Impression
Abdominal pain secondary to cholecystitis/gallstone pancreatitis
Left piriform abscess s/p drain placement on 03/06 and removed on 03/18
Left epidural abscess status postevacuation on chronic antibiotic
Recentl
Paroxysmal atrial fibrillation
Mitral regurgitation
Orthostatic hypotension
Hyperlipidemia
Chronic anemia
Stage IV follicular lymphoma
Plan
Continue with ceftriaxone 2g q12h. Add IV Flagyl
General Surgery eval pending
Hold Eliquis
Check RUQ US . May require MRCP.
Start patient on IV fluids LR at 150 cc/h
N.p.o.
Pain control
Antinausea meds as needed. Lipase elevated noted.
As needed IV Lopressor. Continue amiodarone.
CT abd/pelvis noted-Neurosurgery and ID eval
Fortunately patient with no leukocytosis.
DVT prophylaxis with scds for now.
I spent a total of 78 minutes with the patient or on the floor. More than 50% of this time involved counseling and coordination of care.
--- NOTE | 2024-04-06 14:02 | HPS.HSE ---
Family Physician
-
Family Physician: Lucio Ng,
Chief Complaint
-
Abdominal Pain
History of Present Illness
This is an 88- year-old female with a past medical history of a-fib on Eliquis, HFpEF, follicular lymphoma, and recent epidural and left piriformis abscess on IV antibiotics who presents to the ED for abdominal pain x 1 day. She states the pain
started last night and is diffuse in her upper abdomen with radiation to the back. She was given Tylenol for the pain, and drank prune juice for possible constipation with no relief. She states the pain is dull with moments of sharp pain. She has
associated nausea but no vomiting. She denies fever, chills, diaphoresis, chest pain, or changes in her bowel movements. She denies history of similar abdominal pain, or known prior history of gallstones.
Medical History
Past Medical History
Past Medical History: Reports Other
Additional Past Medical History:
Paroxysmal Atrial Fibrillation
Chronic HFpEF
Hyperlipidemia
Orthostatic Hypotension
Osteoporosis
Stage IV Follicular Lymphoma
Chronic Anemia
Epidural Abscess
Left Piriformis Abscess
Past Surgical History: Reports Other
Additional Past Surgical History:
Hysterectomy
Left Hip Replacement
Chest Wall Port with Subsequent Removal
Left L5-S1 Laminoforaminotomy with Evacuation of Epidural Abscess
Social History
Tobacco: Non-smoker
Alcohol: Occasional (3 glasses of wine a week)
Drug: None
Living: Assisted Living ([facility])
Family History
Family History: Other (Mother: Heart Failure, Father Throat Cancer)
Allergies / Home Medications
Allergies reflects when Allergies were last updated in [employer].
Home Medications with original date entered in [employer]
Allergy/Medication List:
Allergies
Allergy/AdvReac Type Severity Reaction Status Date / Time
allopurinol Allergy Rash Verified 03/18/24 13:06
bendamustine [From [facility]] Allergy Unknown Verified 03/18/24 13:06
ciprofloxacin Allergy Unknown Verified 03/18/24 13:06
povidone-iodine Allergy Rash Verified 03/18/24 13:06
soap Allergy Rash Verified 03/18/24 13:06
Home Medications
apixaban 2.5 mg tablet (Eliquis) 2.5 mg PO BID Blood Clot Prevention/Tx 12/02/20
metoprolol tartrate 25 mg tablet 12.5 mg PO BID Blood Pressure 12/02/20
potassium chloride 20 mEq tablet,extended release(part/cryst) (Klor-Con M) 20 meq PO DAILY Electrolyte Repletion 12/02/20
rosuvastatin 5 mg tablet 10 mg PO DAILY High Cholesterol 12/02/20
torsemide 20 mg tablet 20 mg PO DAILY Fluid Retention/Swelling 12/02/20
Lactobac no.2-Bifidobac no.1-S. thermo 112.5 billion cell capsule (Visbiome) 1 cap PO DAILY probiotic 02/26/24
amiodarone 100 mg tablet 100 mg PO DAILY Arrhythmia 02/26/24
calcium carbonate 500 mg-vitamin D3 10 mcg (400 unit) tablet (Calcium 500 + D) 1 tab PO DAILY Supplement 02/26/24
coQ10 (ubiquinol) 100 mg capsule 100 mg PO DAILY Supplement 02/26/24
ibandronate 150 mg tablet 150 mg PO QMONTH osteoporosis 02/26/24
vitamin B complex 1 tab PO DAILY Supplement 02/26/24
acetaminophen 500 mg tablet (Tylenol Extra Strength) 500 mg PO TID Pain 04/06/24
ceftriaxone 2 gram solution for injection 2,000 mg IV Q12H Infection 04/06/24
docusate sodium 100 mg capsule (Colace) 100 mg PO DAILY Constipation 04/06/24
gabapentin 100 mg capsule 100 mg PO TID Pain 04/06/24
midodrine 2.5 mg tablet 2.5 mg PO TID Blood Pressure 04/06/24
midodrine 5 mg tablet 5 mg PO TID Blood Pressure 04/06/24
ondansetron HCl 4 mg tablet 4 mg PO DAILY nausea 04/06/24
pantoprazole 20 mg tablet,delayed release 20 mg PO DAILY Gastrointestinal Issue 04/06/24
therapeutic multivitamin 1 tab PO DAILY Supplement 04/06/24
Review of Systems
-
A 12 point ROS was completed and negative except as noted: Yes
Constitutional: Denies Fever or Chills
Respiratory: Denies Cough or Trouble Breathing
Cardiac: Denies Chest Pain or Palpitations
Abdomen/GI: Reports See HPI
Physical Exam
Vital Signs
Vital Signs
Temp Pulse Resp BP Pulse Ox
97.9 F 72 15 133/61 97
04/06/24 11:39 04/06/24 11:39 04/06/24 11:39 04/06/24 11:39 04/06/24 11:39
Physical Exam
General: Comfortable and Conversant
HEENT: Anicteric and Moist mucous membranes
Respiratory: Clear and Non Labored Respirations
Cardiac: S1/S2 and Regular Rhythm; No Tachycardia
GI: Soft and Tender (Epigastric and Right Upper Quadrant without rebound or guarding)
Musculoskeletal: No Clubbing, No Cyanosis and No Edema
Skin: Warm and Dry
Neuro: Awake, Alert, Oriented and Nonfocal/grossly intact
Psych: Calm
Laboratory Results
-
04/06/24 08:46
04/06/24 08:46
Laboratory Results
Total Bilirubin 1.7 mg/dl (0.2-1.3) H 04/06/24 08:46
AST 271 U/L (14-36) H 04/06/24 08:46
ALT 110 U/L (0-35) H 04/06/24 08:46
Alkaline Phosphatase 90 U/L (38-126) 04/06/24 08:46
Lipase > 4000 U/L (23-300) H* 04/06/24 08:46
Data Reviewed
-
CT Scan: Report Reviewed by me
Lab Data: Labs Reviewed by me
Impression/Plan
-
Acute Cholecystitis with Gallstone Pancreatitis
-Consult General Surgery
-Consult GI
-Continue NPO/IVFs
-Continue ceftriaxone and metronidazole
Recent Epidural and Left Piriformis Abscess
-CT scans shows persistent fluid collection at L4/L5 spinous process and rim enhancing fluid collection in left pelvis presacral space
-Continue ceftriaxone 2gm q12h
-Consult Neurosurgery
-Consult Infectious Disease
Paroxysmal Atrial Fibrillation
-Continue amiodarone
-Hold oral metoprolol - Add metoprolol 2.5mg IV prn elevate heart rate
-Hold Eliquis for anticipated procedure
Chronic HFpEF
-Hold torsemide
-Monitor Is&Os and Daily Weights
Hyperlipidemia
-Hold rosuvastatin
Orthostatic Hypotension
-Continue Midodrine
Stage IV Follicular Lymphoma
-Follows with Dr. Perdomo at [place]
Chronic Anemia
-Hgb stable
DVT proph: SCDs until able to resume Eliquis
Code Status: Full Code
[2024-04-06] MEDS: ROCEPHIN 2000 MG IV ×2 (14:21→20:59)
[2024-04-06] MEDS: STERILE WATER FOR INJECTION 20 ML IV ×2 (14:22→21:00)
--- NOTE | 2024-04-06 16:28 | CON.GS ---
Consultation
-
Requesting Provider: Bakari
Performing Provider: Reid
Reason for Consultation: Biliary pancreatitis
Medical History
-
Chief Complaint: Abd pain
History of Present Illness:
88F with acute onset abd pain that began last night after veal parm, iced cream and a boost shake. Recent hx notable for piriformis abscess, getting IV abx at home via PICC. Pain localized to upper abdomen radiating to her mid back, pain came in
waves, now it is much improved. A/w nausea, denies vomiting. Denies f/c. Never had similar episodes in the past. Last dose eliquis for afib was last night.
Past Medical History
Past Medical History: Other (Paroxysmal Atrial Fibrillation Chronic HFpEF Hyperlipidemia Orthostatic Hypotension Osteoporosis Stage IV Follicular Lymphoma Chronic Anemia Epidural Abscess Left Piriformis Abscess)
Past Surgical History: Other (Hysterectomy Left Hip Replacement Chest Wall Port with Subsequent Removal Left L5-S1 Laminoforaminotomy with Evacuation of Epidural Abscess)
Social History
Tobacco: Non-Smoker
Alcohol: Occasional
Drug: None
Living: Assisted Living
Family History
Family History: Reviewed & Noncontributory
Allergies / Home Medications
Allergy/AdvReac Type Severity Reaction Status Date / Time
allopurinol Allergy Rash Verified 03/18/24 13:06
bendamustine [From [place]] Allergy Unknown Verified 03/18/24 13:06
ciprofloxacin Allergy Unknown Verified 03/18/24 13:06
povidone-iodine Allergy Rash Verified 03/18/24 13:06
soap Allergy Rash Verified 03/18/24 13:06
�Medication �Instructions �Recorded �Confirmed �Type
apixaban 2.5 mg tablet (Eliquis) 2.5 mg PO BID Blood Clot 12/02/20 04/06/24 History
Prevention/Tx
metoprolol tartrate 25 mg tablet 12.5 mg PO BID Blood Pressure 12/02/20 04/06/24 History
potassium chloride 20 mEq 20 meq PO DAILY Electrolyte 12/02/20 04/06/24 History
tablet,extended Repletion
release(part/cryst) (Klor-Con M)
rosuvastatin 5 mg tablet 10 mg PO DAILY High Cholesterol 12/02/20 04/06/24 History
torsemide 20 mg tablet 20 mg PO DAILY Fluid 12/02/20 04/06/24 History
Retention/Swelling
Lactobac no.2-Bifidobac no.1-S. 1 cap PO DAILY probiotic 02/26/24 04/06/24 History
thermo 112.5 billion cell capsule
(Visbiome)
amiodarone 100 mg tablet 100 mg PO DAILY Arrhythmia 02/26/24 04/06/24 History
calcium carbonate 500 mg-vitamin 1 tab PO DAILY Supplement 02/26/24 04/06/24 History
D3 10 mcg (400 unit) tablet
(Calcium 500 + D)
coQ10 (ubiquinol) 100 mg capsule 100 mg PO DAILY Supplement 02/26/24 04/06/24 History
ibandronate 150 mg tablet 150 mg PO QMONTH osteoporosis 02/26/24 04/06/24 History
vitamin B complex 1 tab PO DAILY Supplement 02/26/24 04/06/24 History
acetaminophen 500 mg tablet 500 mg PO TID Pain 04/06/24 04/06/24 History
(Tylenol Extra Strength)
ceftriaxone 2 gram solution for 2,000 mg IV Q12H Infection 04/06/24 04/06/24 History
injection
docusate sodium 100 mg capsule 100 mg PO DAILY Constipation 04/06/24 04/06/24 History
(Colace)
gabapentin 100 mg capsule 100 mg PO TID Pain 04/06/24 04/06/24 History
midodrine 2.5 mg tablet 2.5 mg PO TID Blood Pressure 04/06/24 04/06/24 History
midodrine 5 mg tablet 5 mg PO TID Blood Pressure 04/06/24 04/06/24 History
ondansetron HCl 4 mg tablet 4 mg PO DAILY nausea 04/06/24 04/06/24 History
pantoprazole 20 mg tablet,delayed 20 mg PO DAILY Gastrointestinal 04/06/24 04/06/24 History
release Issue
therapeutic multivitamin 1 tab PO DAILY Supplement 04/06/24 04/06/24 History
Review of Systems
-
A 10 point review of systems was completed, and was negative except as per HPI.
Physical Exam
Vital Signs
Temp Pulse Resp BP Pulse Ox
97.9 F 63 16 109/53 95
04/06/24 11:39 04/06/24 14:27 04/06/24 14:27 04/06/24 14:27 04/06/24 14:27
04/05/24 04/06/24 04/07/24
06:59 06:59 06:59
Actual Weight 53.524 kg
Body Mass Index (BMI) 20.9
Lab Results
04/06/24 08:46
04/06/24 08:46
WBC 7.5 10^3/uL (4.8-10.8) 04/06/24 08:46
Hgb 10.9 g/dL (12.0-16.0) L 04/06/24 08:46
Hct 33.0 % (37.0-47.0) L 04/06/24 08:46
Plt Count 247 10^3/uL (130-400) 04/06/24 08:46
Abs Immat Gran (auto) 0.0 10^3/uL (0-0.05) 04/06/24 08:46
Neutrophils % 84.6 % (42.2-75.2) H 04/06/24 08:46
Physical Exam
General: Well Developed, Well Nourished and No Apparent Distress
HEENT: Normocephalic and Anicteric
GI: Soft, Non Distended and Tender (mild ttp to epigastrium and RUQ)
Musculoskeletal: No Clubbing and No Cyanosis
Skin: Warm and Dry
Neuro: AO x 3
Psych: Calm
Data Reviewed
-
CT Scan: Image Personally Visualized and interpreted, Report Reviewed by me, Discussed with Physician and Discussed with Patient
Ultrasound: Image Personally Visualized and interpreted, Report Reviewed by me, Discussed with Physician and Discussed with Patient
Labs: Labs Reviewed by me, Discussed with Physician and Discussed with Patient
Assessment / Plan
-
88F with biliary pancreatitis and possible concurrent ACC
AFVSS, mild ttp on exam
No leukocytosis, left shift present
LFTs elevated, Lipase >4000
US with distended gb, with stones, PCF and GBWT, CBD 4mm
CT A/P with prominent pancreatic duct, distended hydropic appearing gb extending down to the level of the ASIS, with PCF, no radiopaque ductal stones; persistent piriformis abscess
Last dose eliquis 04/05 PM
Plan:
Admit to Hospitalist
IV abx per ID
Agree with MRCP to r/u ongoing choledocholithiasis
Will likely benefit from CCY after eliquis washout
OK for CLD for now
Hold eliquis
SCDs
Ambuate
Al other care as per primary team
--- NOTE | 2024-04-06 16:30 | CON.GI ---
Addendum entered and electronically signed by Nichelle Benavides MD 04/06/24 16:58:
I saw and examined the patient.
The [employer] D[employer] INSPECTOR or PA's note was reviewed and I agree with the note.
Comment: 88-year-old female with history of non-Hodgkin's lymphoma currently in remission, status post chemo, history of atrial fibrillation on Eliquis, last dose last night, history of spinal abscesses on prolonged antibiotics, presenting with
sudden onset postprandial abdominal pain since last night and epigastric area and also radiating to the back. No previous similar episodes. No fevers or chills. In the ER, she was noted to have elevated LFTs, elevated lipase and CT scan of the
abdomen and pelvis showing markedly abnormal gallbladder with enlargement, thickening and inflammation with multiple gallstones, mildly prominent common bile duct and pancreatic duct. Ultrasound of the abdomen also showing evidence of acute
cholecystitis.
-Epigastric pain with elevated LFTs and lipase suggesting gallstone pancreatitis
CT scan of the abdomen/pelvis showing gallstones and acute cholecystitis and also mild dilated bile duct and pancreatic
N.p.o. , IV fluids
Will check MRI/MRCP to rule out choledocholithiasis
If MRCP shows choledocholithiasis, will need ERCP
Currently on IV antibiotics
Surgery following for subsequent laparoscopic cholecystectomy
Continue to monitor LFTs and lipase but CT scan without any evidence of significant pancreatitis
Will follow-up
Original Note:
Consultation
-
Date/Time Consultation Requested: 04/06/24 @ 13:59
Date/Time Consultation Performed: 04/06/24 @ 16:00
Requesting Provider: Amber Hawthorne PA-C
Performing Provider: KAR Boucher; Dr. Nichelle Benavides
Reason for Consultation: gallstone pancreatitis
Medical History
Chief Complaint / HPI
Chief Complaint: Abdominal pain
History of Present Illness:
The patient is AN 88-year-old female with a past medical history significant for non-Hodgkin's lymphoma status post 2 rounds of chemotherapy currently in remission, atrial fibrillation on Eliquis, heart failure with preserved ejection fraction,
spinal abscess on prolonged course of antibiotics, who presents to the hospital for evaluation of abdominal pain. We are being asked to evaluate for possible gallstone pancreatitis. The patient reports that yesterday she did not have much of an
appetite at dinnertime but notes she did eat a very small piece of veal Parmesan and some ice cream. She notes that several hours later she developed a very sharp pain to the epigastric area that radiated across the top of her abdomen under her bra
level. She reports that she was unable to sleep due to this pain as it continued throughout the night. In the morning she continued with discomfort as well, and went to move something in her house and the pain became acutely worse radiating to her
back. She did take some Tylenol PM yesterday evening but this did not help much. She denies any prior episodes of similar pain in the past and denies any history of gallbladder problems. She tried to drink rossy preston but the discomfort continued.
She notes that her bowels have been a little bit slower recently but denies any significant constipation or diarrhea. She denies any fevers or chills but does have some sweats at night intermittently. She notes that she had recent treatment for
non-Hodgkin's lymphoma whom she follows with Dr. Perdomo for. She also notes she was diagnosed with a spinal abscess and has been on a prolonged course of IV antibiotics throughout the month of March. She is following with ID for this currently.
She does admit to some weight loss but does not quantify the amount. She does drink alcohol on occasion but this is infrequently and has not drank any alcohol recently. She otherwise denies any nausea, vomiting, dysphagia, dyne aphasia, melena,
hematochezia, chest pain, shortness of breath, lightheadedness, or dizziness. She denies any prior history of pancreatitis in the past. She denies any prior EGD but has had colonoscopies done here with Dr. Wilson in the past. She denies any
family history of colorectal cancer. Upon evaluation in the emergency room she underwent a CT of the abdomen pelvis which did show a markedly abnormal gallbladder with enlargement and wall thickening/edema with inflammatory stranding and multiple
layering densities consistent with gallstones. There is also enlargement of the common bile duct along with a mildly prominent pancreatic duct in the head of the pancreas otherwise the pancreas was unremarkable. Other findings as noted below.
Routine labs on admission showed a WBC 7.5, hemoglobin 10.9, platelets 247,000, sodium 137, potassium 3.8, BUN 23, creatinine 0.9, total bilirubin 1.7, AST 271, ALT 110, alk phos 90, lipase greater than 4000. An ultrasound of the abdomen was done
showing findings consistent with acute cholecystitis with no obvious cbd duct enlargement. She was made n.p.o. and is being admitted for further evaluation by GI, general surgery, ID, and neurosurgery.
Past Medical History
Past Medical History: Arrhythmias (Atrial fibrillation on Eliquis), Cancer (Non-Hodgkin's lymphoma status post 2 rounds of chemotherapy), CHF (Preserved ejection fraction), GERD, Hypercholesterolemia and Other (Osteoporosis, spinal abscess)
Past Surgical History: Gynecological (Hysterectomy) and Orthopedic (Hip replacement)
Social History
Tobacco: Non-Smoker
Alcohol: Occasional
Drug: None
Living: Assisted Living
Family History
Family History: Reviewed & Not Pertinent
Allergies / Home Medications
Allergy/AdvReac Type Severity Reaction Status Date / Time
allopurinol Allergy Rash Verified 03/18/24 13:06
bendamustine [From [place]] Allergy Unknown Verified 03/18/24 13:06
ciprofloxacin Allergy Unknown Verified 03/18/24 13:06
povidone-iodine Allergy Rash Verified 03/18/24 13:06
soap Allergy Rash Verified 03/18/24 13:06
�Medication �Instructions �Recorded
apixaban 2.5 mg tablet (Eliquis) 2.5 mg PO BID Blood Clot 12/02/20
Prevention/Tx
metoprolol tartrate 25 mg tablet 12.5 mg PO BID Blood Pressure 12/02/20
potassium chloride 20 mEq 20 meq PO DAILY Electrolyte 12/02/20
tablet,extended Repletion
release(part/cryst) (Klor-Con M)
rosuvastatin 5 mg tablet 10 mg PO DAILY High Cholesterol 12/02/20
torsemide 20 mg tablet 20 mg PO DAILY Fluid 12/02/20
Retention/Swelling
Lactobac no.2-Bifidobac no.1-S. 1 cap PO DAILY probiotic 02/26/24
thermo 112.5 billion cell capsule
(Visbiome)
amiodarone 100 mg tablet 100 mg PO DAILY Arrhythmia 02/26/24
calcium carbonate 500 mg-vitamin 1 tab PO DAILY Supplement 02/26/24
D3 10 mcg (400 unit) tablet
(Calcium 500 + D)
coQ10 (ubiquinol) 100 mg capsule 100 mg PO DAILY Supplement 02/26/24
ibandronate 150 mg tablet 150 mg PO QMONTH osteoporosis 02/26/24
vitamin B complex 1 tab PO DAILY Supplement 02/26/24
acetaminophen 500 mg tablet 500 mg PO TID Pain 04/06/24
(Tylenol Extra Strength)
ceftriaxone 2 gram solution for 2,000 mg IV Q12H Infection 04/06/24
injection
docusate sodium 100 mg capsule 100 mg PO DAILY Constipation 04/06/24
(Colace)
gabapentin 100 mg capsule 100 mg PO TID Pain 04/06/24
midodrine 2.5 mg tablet 2.5 mg PO TID Blood Pressure 04/06/24
midodrine 5 mg tablet 5 mg PO TID Blood Pressure 04/06/24
ondansetron HCl 4 mg tablet 4 mg PO DAILY nausea 04/06/24
pantoprazole 20 mg tablet,delayed 20 mg PO DAILY Gastrointestinal 04/06/24
release Issue
therapeutic multivitamin 1 tab PO DAILY Supplement 04/06/24
Review of Systems
-
History Source: Patient
Constitutional: Reports Weight Loss and Night Sweats
EENT: Reports No Symptoms
Respiratory: Reports No Symptoms
Cardiac: Reports No Symptoms
Abdomen/GI: Reports Abdominal Pain and Constipated
: Reports No Symptoms
Musculoskeletal: Reports No Symptoms
Skin: Reports No Symptoms
Neurological: Reports No Symptoms
Vital Signs
Temp Pulse Resp BP Pulse Ox
97.9 F 63 16 109/53 95
04/06/24 11:39 04/06/24 14:27 04/06/24 14:27 04/06/24 14:27 04/06/24 14:27
Physical Exam
Exam
General: Well Developed, Well Nourished and No Apparent Distress
HEENT: Normocephalic, Anicteric and Atraumatic
Respiratory: Clear
Cardiac: S1/S2 and Regular Rhythm
Breast: Deferred by me
GI: Soft, Non Tender, Non Distended and Normal Bowel Sounds
Rectal: Deferred by Provider
Musculoskeletal: No Edema
Skin: Warm and Dry
Neuro: Awake, Alert and Oriented
Psych: Calm
Results
WBC 7.5 10^3/uL (4.8-10.8) 04/06/24 08:46
Hgb 10.9 g/dL (12.0-16.0) L 04/06/24 08:46
Hct 33.0 % (37.0-47.0) L 04/06/24 08:46
MCV 94.8 fL (81.0-99.0) 04/06/24 08:46
Plt Count 247 10^3/uL (130-400) 04/06/24 08:46
Absolute Neuts (auto) 6.3 10^3/uL (1.4-6.5) 04/06/24 08:46
Sodium 137 mmol/L (135-145) 04/06/24 08:46
Potassium 3.8 mmol/L (3.5-5.1) 04/06/24 08:46
Chloride 98 mmol/L (98-107) 04/06/24 08:46
Carbon Dioxide 30 mmol/L (22-30) 04/06/24 08:46
BUN 23 mg/dl (7-17) H 04/06/24 08:46
Creatinine 0.9 mg/dL (0.6-1.0) 04/06/24 08:46
Calcium 10.0 mg/dl (8.4-10.2) 04/06/24 08:46
Total Bilirubin 1.7 mg/dl (0.2-1.3) H 04/06/24 08:46
AST 271 U/L (14-36) H 04/06/24 08:46
ALT 110 U/L (0-35) H 04/06/24 08:46
Alkaline Phosphatase 90 U/L (38-126) 04/06/24 08:46
Lipase > 4000 U/L (23-300) H* 04/06/24 08:46
Diagnostic Image Results:
04/06/24 ultrasound abdomen: Acute cholecystitis. No common bile duct enlargement however. No definite filling defect in the distal common bile duct. MRCP is recommended to exclude an occult stone within the distal common bile duct.
04/06/24 CT abdomen and pelvis with IV and oral contrast: IMPRESSION:
1. Markedly abnormal gallbladder, with enlargement, wall thickening and edema, inflammatory stranding, multiple layering densities consistent with gallstones, which are not particularly densely calcified on the CT. There is mild enlargement of the
common bile duct. No definite distal filling defect, however the density of the gallstones seen in the gallbladder could easily obscure evaluation, therefore MRCP and/or ultrasound is recommended to further evaluate for choledocholithiasis. Findings
consistent with acute cholecystitis.
2. CRITICAL VALUE: Results to Luis Rico in the emergency room at 12:30 PM.
3. Mildly prominent pancreatic duct in the head of the pancreas. The pancreas is otherwise unremarkable.
4. Persistent loculated rim-enhancing fluid collection in the posterior left side of the pelvis in the presacral space, the drain has been removed. This is consistent with residual fluid collection/abscess.
5. Persistent fluid collection in the subcutaneous tissues posterior to the L4-5 spinous processes. [place] to represent a hematoma/seroma at the time of the MRI of the lumbar spine one month ago. Abscess to be excluded.
6. Hepatosplenomegaly. Diverticulosis.
7. Limited exam of the pelvis due to artifact from the left total hip replacement.
Prior GI Procedures:
EGD: None
Colonoscopy: 05/02/2020 Dr. Wilson: Two 3 to 4 mm polyps in the sigmoid colon and in the
descending colon. Biopsied.
- Diverticulosis in the sigmoid colon and in the
descending colon. Path showing 1 adenomatous polyp and 1 hyperplastic polyp
Assessment / Plan
-
The patient is an 88-year-old female with a past medical history significant for non-Hodgkin's lymphoma status post 2 rounds of chemotherapy currently in remission, atrial fibrillation on Eliquis, heart failure with preserved ejection fraction,
spinal abscess on prolonged course of antibiotics, who presents to the hospital for evaluation of abdominal pain. We are being asked to evaluate for possible gallstone pancreatitis. She presents with acute onset of abdominal pain in the upper
epigastric area rating to her back, found to have abnormal LFTs and CT imaging concerning for acute cholecystitis. Also with some findings concerning for possible choledocholithiasis. Her pancreas also appeared normal although with a greater than
4000 lipase level. She is n.p.o. at this time and her pain has improved markedly.
Problem list:
-Abdominal pain
-Ultrasound and CT findings concerning for acute cholecystitis, possible choledocholithiasis
-Abnormal LFTs
-Pancreatitis, lipase greater than 4000 although pancreas appears normal on imaging
-Prominence of the pancreatic duct and CBD on CT imaging
-History of non-Hodgkin's lymphoma status postchemotherapy x 2 around currently in remission
-Recent diagnosis of spinal abscess on prolonged IV antibiotic course, persistent fluid collection on CT scan
-Atrial fibrillation on Eliquis
-History of heart failure with preserved ejection fraction
Recommendations:
-Etiology of presenting symptoms likely secondary to acute cholecystitis. Cannot rule out choledocholithiasis given presence of gallstones and some biliary ductal dilation seen on CT imaging. Also some prominence of the pancreatic duct as well.
-Would recommend MRI plus MRCP for further evaluation
-If positive for choledocholithiasis will need ERCP
-General surgery eval is pending
-Would hold further Eliquis pending need for possible cholecystectomy +/- ERCP
-Trend LFTs
-IV antibiotics as per medicine/surgery
-Continue n.p.o. at this time
-Continue IV fluids, but monitor respiratory status given history of heart failure
-Will follow
Data Reviewed
-
CT Scan: Report Reviewed by me and Discussed with Physician
-
-
Thank you for consultation and allowing me to participate in the patient's care. Please call the station installer GI physician during the after hours with any questions or concerns.
[2024-04-06] MEDS: ProAmatine 7.5 MG PO (17:10)
--- NOTE | 2024-04-06 17:41 | CON.ID ---
Consultation
-
Date/Time Consultation Requested: 04/06/24 15:39
Date/Time Consultation Performed: 04/06/24 17:41
Requesting Provider: Marine LOVE
Performing Provider: Dr Bird
Reason for Consultation: abd pain
Chief Complaint / Past History
Chief Complaint
abd pain
History of Present Illness
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
sudden onset of postprandial abdominal pain which began the night before. Pain radiates to the back. She missed AM dose of ceftriaxone while seeking medical assessment, no other missed doses. No fevers or chills. PICC in place no erythema,
warmth, tenderness or drainage.
Since arrival here no recorded fevers, bp stable, HR normal, wbc 7.5, hgb 10, plt 247, cr 0.9, no cultures done thus far, 03/06 abscess cx: VGS, CT gallstone pancreatitis, US no obstructing stone, MRCP pending, seen by GI and surgery for MRCP,
lipase >4000, currently on ceftriaxone and metronidazole, ID is consulted for assistance with management.
Past History
Additional Past Medical History:
Paroxysmal Atrial Fibrillation
Chronic HFpEF
Hyperlipidemia
Orthostatic Hypotension
Osteoporosis
Stage IV Follicular Lymphoma
Chronic Anemia
Epidural Abscess
Left Piriformis Abscess
Additional Past Surgical History:
Hysterectomy
Left Hip Replacement
Chest Wall Port with Subsequent Removal
Left L5-S1 Laminoforaminotomy with Evacuation of Epidural Abscess
Allergy History:
allopurinol Allergy (Verified 03/18/24 13:06)
Rash
bendamustine [From [place]] Allergy (Verified 03/18/24 13:06)
Unknown
ciprofloxacin Allergy (Verified 03/18/24 13:06)
Unknown
povidone-iodine Allergy (Verified 03/18/24 13:06)
Rash
soap Allergy (Verified 03/18/24 13:06)
Rash
Medications Reviewed: Yes
Social History
Tobacco: Non-Smoker
Alcohol: Occasional
Drug: None
Family History
Family History: Not Pertinent
Review of Systems
Review of Systems
General: Negative Fever or Chills
All systems: All other systems were reviewed and were negative
Vital Signs
Temp Pulse Resp BP Pulse Ox
97.9 F 63 16 109/53 95
04/06/24 11:39 04/06/24 14:27 04/06/24 14:27 04/06/24 14:27 04/06/24 14:27
Physical Exam
Physical Exam
Constitutional: No Acute Distress
Cardiovascular: Regular Rate and S1/S2; Negative Murmur or Rub
Pulmonary: Clear and Symmetric; Negative Wheezes, Rales or Rhonchi
Gastrointestinal: Soft, Non Tender, Non Distended and Normal Bowel Sounds
Skin: Warm, Dry and Other (surgical site no erythema, warmth, tenderness or dehiscence ); Negative Rash or Jaundice
Lines: PICC (no erythema, warmth or tenderness)
Lab / Diagnostic Study Results
04/06/24 08:46
04/06/24 08:46
Abs Immat Gran (auto) 0.0 10^3/uL (0-0.05) 04/06/24 08:46
Absolute Neuts (auto) 6.3 10^3/uL (1.4-6.5) 04/06/24 08:46
Absolute Lymphs (auto) 0.4 10^3/uL (1.2-3.4) L 04/06/24 08:46
Absolute Monos (auto) 0.6 10^3/uL (0.1-0.6) 04/06/24 08:46
Absolute Basos (auto) 0.0 10^3/uL (0-0.2) 04/06/24 08:46
Immature Gran % 0.3 % (0-0.5) 04/06/24 08:46
Neutrophils % 84.6 % (42.2-75.2) H 04/06/24 08:46
Lymphocytes % 5.6 % (20.5-51.1) L 04/06/24 08:46
Monocytes % 8.3 % (1.7-9.3) 04/06/24 08:46
Eosinophils % 0.7 % (0-6) 04/06/24 08:46
Basophils % 0.5 % (0-2) 04/06/24 08:46
Assessment / Plan
Gallstone Pancreatitis
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
Para-spinal collection - s/p aspiration / drainage 03/06/24
Leukocytosis
Elevated CRP
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
Large B-cell lymphoma; on maintenance Rituxan
Atrial fibrillation
HTN
Recommendations:
Afebrile, without leukocytosis
Agree with continued ceftriaxone with addition of metronidazole
Follow up MRCP
If fevers or sepsis overnight then would transition to ertapenem. At this time given current presentation will continue ceftriaxone 2 g IV every 12 hours and metronidazole
Continue to plan to complete a 6-week course of ceftriaxone (through 04/14/24), duration of metronidazole pending course
Monitor white count and temperature curve.
PICC line in place
[2024-04-06] MEDS: LR 1000 IV (18:37)
[2024-04-06] MEDS: FLAGYL 500 MG 100 IV (18:38)
[2024-04-06] MEDS: FLUSH (NSS) 1 FLUSH IV (20:59)
[2024-04-07] VITALS (7 sets, daily range): BP systolic 115–149; BP diastolic 56–75; PULSE 72; O2SAT 98; BMI 21.0
[2024-04-07] MEDS: FLUSH (NSS) 1 FLUSH IV ×4 (00:15→23:05)
[2024-04-07] MEDS: FLAGYL 500 MG 100 IV ×3 (03:00→17:38)
[2024-04-07] MEDS: LR 1000 IV ×3 (03:58→20:58)
[2024-04-07 05:36] LABS: Hematocrit 30.5 % (37.0-47.0); Hemoglobin 10.1 g/dL (12.0-16.0); Mean Corp Hgb Conc. 33.1 g/dL (33.0-37.0); Mean Corpuscular Hgb 31.5 pg (27.0-31.0); Mean Platelet Volume 10.3 fL (7.4-10.4); Platelet Count 221 10^3/uL (130-400); Red Blood Cell Count 3.21 10^6/uL (4.20-5.40); Red Cell Dist. Width 14.6 % (11.5-14.5); White Blood Cell Count 4.3 10^3/uL (4.8-10.8)
[2024-04-07 06:00] LABS: ALT (SGPT) 589 U/L (0-35); Albumin 3.1 g/dl (3.5-5.0); Alkaline Phosphatase 297 U/L (38-126); Blood Urea Nitrogen 13 mg/dl (7-17); Calcium 9.2 mg/dl (8.4-10.2); Carbon Dioxide 30 mmol/L (22-30); Chloride 104 mmol/L (98-107); Estimated Creatinine Clearance 36 ml/min; Glucose 86 mg/dl (70-99); Potassium 3.9 mmol/L (3.5-5.1); Sodium 140 mmol/L (135-145); Total Bilirubin 2.8 mg/dl (0.2-1.3); eGFR > 60.00
[2024-04-07 06:16] LABS: AST (SGOT) 960 U/L (14-36)
--- NOTE | 2024-04-07 09:35 | PTOTSP ---
Pt is independent in ADLs and functional transfers. No skilled OT needs in house. Will sign off.
[2024-04-07] MEDS: PACERONE 100 MG PO (09:57)
[2024-04-07] MEDS: ProAmatine PO ×3 (10:02→16:46)
[2024-04-07] MEDS: PROTONIX IV 40 MG IV (10:04)
[2024-04-07] MEDS: STERILE WATER FOR INJECTION 20 ML IV ×2 (10:06→21:01)
[2024-04-07] MEDS: ROCEPHIN 2000 MG IV ×2 (10:07→21:01)
[2024-04-07 10:26] LABS: Direct Bilirubin 2.5 mg/dl (0.0-0.4); Lipase 343 U/L (23-300)
[2024-04-07] MEDS: NSS (PRESERVATIVE FREE) 10 ML IV (10:34)
--- NOTE | 2024-04-07 10:46 | W.PN.GS2 ---
Today's Communication / Plan
-
`
Assessment / Plan
-
Assessment: 88-year-old female presenting with presumed gallstone mediated acute pancreatitis and elevated LFTs.
AFVSS
Residual tenderness on examination today but clinically much improved
Lipase down to 343 however total bilirubin, direct bilirubin, AST ALT and alkaline phosphatase all further elevated possibly indicative of choledocholithiasis rather than passed gallstone
Plan: Patient scheduled for MRI/MRCP today to evaluate for choledocholithiasis
If MRCP negative patient will be added onto the OR schedule for lap courtney with IOC likely tomorrow
If MRCP positive then would pursue ERCP followed by cholecystectomy
Continue to hold therapeutic anticoagulation given plan for cholecystectomy with or without ERCP
Reviewed with patient, any of her questions were fully addressed.
Updated hospitalist as well
Confirmed with MRI scheduling patient on list for MRCP today
Subjective Data
-
Date of Service: April 07, 2024
Patient seen and examined, sitting in chair at bedside.
Presenting abdominal pain essentially resolved
No nausea, no vomiting
No abdominal bloating or distention
A bit of residual discomfort in the epigastric region
Objective Data
-
Intake and Output
04/06/24 04/07/24 04/08/24
06:59 06:59 06:59
Intake Total 1979 / 1979
Output Total 500 / 500
Balance 1480 / 1480
Intake:
Oral fluids 480 / 480
IV fluids (Total) 1500 / 1500
Output:
Urine, Voided 500 / 500
Vital Signs
Temp Pulse Resp BP Pulse Ox
98.0 F 81 16 129/69 92
04/07/24 07:00 04/07/24 10:02 04/07/24 07:00 04/07/24 10:02 04/07/24 07:00
Lab Results
04/07/24 05:06
05/23/24 05:06
Calcium 9.2 mg/dl (8.4-10.2) 04/07/24 05:06
Total Bilirubin 2.8 mg/dl (0.2-1.3) H D 04/07/24 05:06
Direct Bilirubin 2.5 mg/dl (0.0-0.4) H 04/07/24 05:06
AST 960 U/L (14-36) H* 04/07/24 05:06
ALT 589 U/L (0-35) H* 04/07/24 05:06
Alkaline Phosphatase 297 U/L (38-126) H 04/07/24 05:06
Total Protein 5.0 g/dl (6.3-8.2) L 04/07/24 05:06
Albumin 3.1 g/dl (3.5-5.0) L 04/07/24 05:06
Physical Exam
-
NAD AAOx3
ABD: Soft, nondistended, tenderness to palpation right upper quadrant and epigastrium with some voluntary guarding on deep palpation.
--- NOTE | 2024-04-07 12:03 | W.PN.HOSP.TC ---
Today's Communication/Plan
-
MRCP
IVF
IV abx
Assessment / Plan
Assessment / Plan
Acute Cholecystitis with Gallstone Pancreatitis
Elevated transaminitis with concern for choledocholithiasis
-Consult General Surgery
-Consult GI
-Continue NPO/IVFs. Decrease rate of IV fluids.
-Continue ceftriaxone and metronidazole
-Plan for MRCP today. Depending on results patient may require +/- ERCP and then planning/timing of lap courtney per surgeon
-Continue to hold Eliquis for now
Recent Epidural and Left Piriformis Abscess
-CT scans shows persistent fluid collection at L4/L5 spinous process and rim enhancing fluid collection in left pelvis presacral space
-Continue ceftriaxone 2gm q12h
-Consult Neurosurgery
-Consult Infectious Disease
Paroxysmal Atrial Fibrillation
-Continue amiodarone
-Hold oral metoprolol - Add metoprolol 2.5mg IV prn elevate heart rate
-Hold Eliquis for anticipated procedure
Chronic HFpEF
-Hold torsemide
-Monitor Is&Os and Daily Weights
Hyperlipidemia
-Hold rosuvastatin
Orthostatic Hypotension
-Continue Midodrine
Stage IV Follicular Lymphoma
-Follows with Dr. Perdomo at [facility]
Chronic Anemia
-Hgb stable
DVT proph: SCDs until able to resume Eliquis
Code Status: Full Code
Updated daughter over the phone in complete details.
Anticipated Discharge: > 48 hours
Subjective/Interval History
-
Date of Service: April 07, 2024
Denies abdominal pain this morning
No overnight events
Objective Data
-
Labs:
Laboratory Results
04/07/24
05:06
WBC 4.3 L
Hgb 10.1 L
Hct 30.5 L
Plt Count 221
Sodium 140
Potassium 3.9
Chloride 104
Carbon Dioxide 30
BUN 13
Creatinine 0.9
Glucose 86
Calcium 9.2
Total Bilirubin 2.8 H D
AST 960 H*
ALT 589 H*
Alkaline Phosphatase 297 H
Vital Signs:
Vital Signs
Temp Pulse Resp BP Pulse Ox
98.0 F 81 16 129/69 92
04/07/24 07:00 04/07/24 10:02 04/07/24 07:00 04/07/24 10:02 04/07/24 07:00
I&O
04/06/24 04/07/24 04/08/24
06:59 06:59 06:59
Intake Total 1979 / 1979
Output Total 500 / 500
Balance 1480 / 1480
Physical Exam
-
General: Well Developed and Well Nourished
HEENT: Normocephalic and Atraumatic
Respiratory: Negative Wheezes or Rales
Cardiac: Regular Rhythm and S1/S2
GI: Soft, Nontender and Nondistended
Genito-urinary: No Costovertebral Tender
Neuro: Awake and AO x 3
Hematologic / Lymphatic: No Lymphadenopathy
Psych: Calm
Data Reviewed
-
Total Time Spent with Patient (in minutes): 56
--- NOTE | 2024-04-07 12:26 | CON.NS ---
Consultation
-
Date/Time Consultation Performed: 04/07/2024; 12:25
Performing Provider: Adria
Chief Complaint
History of Present Illness
This is a neurosurgical consultation on an 88-year-old female, who is status post left L5-S1 hemilaminectomy for evacuation of epidural abscess. She has a past medical history significant for atrial fibrillation on Eliquis, follicular lymphoma, and
ultimately had drainage of left piriformis abscess, with recent discharge for treatment of these infections with IV antibiotics. She was seen in my office approximately 2 weeks thereafter, and was overall doing quite well. She had some mild
erythema around her lumbar incision, without any drainage. She presents now with diffuse abdominal pain and is found to have pancreatitis, and cholecystitis.
Patient had a CT of the chest/abdomen/pelvis for workup, which demonstrated a subcutaneous fluid collection at the L4/L5 level under her incision of concern.
Patient seen and examined. Denies any back pain. Reports left leg radicular pain has resolved.
Review of Systems
-
10 point review of systems was performed, including constitutional, ENT, cardiovascular, respiratory, GI, , endocrinologic, hematologic, neurologic, musculoskeletal, was negative, except for as stated in HPI.
Medication and Allergies
Home Medications
Home Medications
�Medication �Instructions �Recorded
apixaban 2.5 mg tablet (Eliquis) 2.5 mg PO BID Blood Clot 12/02/20
Prevention/Tx
metoprolol tartrate 25 mg tablet 12.5 mg PO BID Blood Pressure 12/02/20
potassium chloride 20 mEq 20 meq PO DAILY Electrolyte 12/02/20
tablet,extended Repletion
release(part/cryst) (Klor-Con M)
rosuvastatin 5 mg tablet 10 mg PO DAILY High Cholesterol 12/02/20
torsemide 20 mg tablet 20 mg PO DAILY Fluid 12/02/20
Retention/Swelling
Lactobac no.2-Bifidobac no.1-S. 1 cap PO DAILY probiotic 02/26/24
thermo 112.5 billion cell capsule
(Visbiome)
amiodarone 100 mg tablet 100 mg PO DAILY Arrhythmia 02/26/24
calcium carbonate 500 mg-vitamin 1 tab PO DAILY Supplement 02/26/24
D3 10 mcg (400 unit) tablet
(Calcium 500 + D)
coQ10 (ubiquinol) 100 mg capsule 100 mg PO DAILY Supplement 02/26/24
ibandronate 150 mg tablet 150 mg PO QMONTH osteoporosis 02/26/24
vitamin B complex 1 tab PO DAILY Supplement 02/26/24
acetaminophen 500 mg tablet 500 mg PO TID Pain 04/06/24
(Tylenol Extra Strength)
ceftriaxone 2 gram solution for 2,000 mg IV Q12H Infection 04/06/24
injection
docusate sodium 100 mg capsule 100 mg PO DAILY Constipation 04/06/24
(Colace)
gabapentin 100 mg capsule 100 mg PO TID Pain 04/06/24
midodrine 2.5 mg tablet 2.5 mg PO TID Blood Pressure 04/06/24
midodrine 5 mg tablet 5 mg PO TID Blood Pressure 04/06/24
ondansetron HCl 4 mg tablet 4 mg PO DAILY nausea 04/06/24
pantoprazole 20 mg tablet,delayed 20 mg PO DAILY Gastrointestinal 04/06/24
release Issue
therapeutic multivitamin 1 tab PO DAILY Supplement 04/06/24
Allergies
Allergies
Allergy/AdvReac Type Severity Reaction Status Date / Time
allopurinol Allergy Rash Verified 03/18/24 13:06
bendamustine [From Bendeka] Allergy Unknown Verified 03/18/24 13:06
ciprofloxacin Allergy Unknown Verified 03/18/24 13:06
povidone-iodine Allergy Rash Verified 03/18/24 13:06
soap Allergy Rash Verified 03/18/24 13:06
Physical Exam
-
Exam:
Awake, alert, no apparent distress.
Cranial nerves II through XII are grossly intact.
Motor:5/5 strength throughout with trace left DF weakness
Sensation:intact in bilateral arms and legs.
Incision: significantly improved left para-incisional erythema, compared to my exam of her ~3 weeks prior. No fluctuance or edema. Nontender.
Head is normocephalic, atraumatic
Neck is supple
Breathing is nonlabored
Abdomen is soft
Extremities are warm
Pulses are palpable
CT of the chest/abdomen/pelvis was reviewed, which demonstrates a small, isolated area just under the incision, over the L4/L5 spinous processes within the subcutaneous layer, without any obvious extension down to the subfascial layer. There is
also residual left presacral/piriformis area loculated collection present.
Problems
-
Problem Status Onset Code
Acute pancreatitis K85.90
Cholecystitis K81.9
Assessment / Plan
-
88 yo F with hx of left L5-S1 epidural abscess, now with abdominal pain.
CT abd/pelvis demonstrates small fluid collection within subcutaneous tissues suspicious for seroma.
Suspicion for infection is low, given incision appears improved compared to my previous encounter with her.
If there is clinical concern, can consider IR tap of collection for culture.
--- NOTE | 2024-04-07 14:51 | W.PN.ID1 ---
Date of Service
Date of Service: April 07, 2024
Today's Communication
Continue antibiotics.
Assessment / Plan
Gallstone Pancreatitis
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
Para-spinal collection - s/p aspiration / drainage 03/06/24
Leukocytosis
Elevated CRP
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
Large B-cell lymphoma; on maintenance Rituxan
Atrial fibrillation
HTN
Recommendations:
Afebrile, without leukocytosis
Agree with continued ceftriaxone with addition of metronidazole
Follow up MRCP
Continue to plan to complete a 6-week course of ceftriaxone (through 04/14/24), duration of metronidazole pending course
Monitor white count and temperature curve.
PICC line in place
Subjective / Review of Systems
Review of Systems: No Fever and No Chills
Vital Signs / Physical Exam
Vital Signs
Vital Signs
Temp Pulse Resp BP Pulse Ox
98.0 F 70 18 149/68 96
04/07/24 07:00 04/07/24 12:16 04/07/24 12:15 04/07/24 12:16 04/07/24 12:15
Physical Exam
Constitutional: No Acute Distress and Comfortable
Eyes: Sclera Anicteric
Cardiovascular: S1/S2; Negative S3/S4
Pulmonary: Non Labored
Gastrointestinal: Non Tender and Non Distended
Neurological: Awake and Alert
Psychological: Calm
Objective Data
Lab Data
Lab Results
04/07/24 05:06
04/07/24 05:06
Estimated Creat Clear 36 ml/min 04/07/24 05:06
Total Bilirubin 2.8 mg/dl (0.2-1.3) H D 04/07/24 05:06
AST 960 U/L (14-36) H* 04/07/24 05:06
ALT 589 U/L (0-35) H* 04/07/24 05:06
Alkaline Phosphatase 297 U/L (38-126) H 04/07/24 05:06
Most recent labs reviewed.
Imaging:
04/07/2024 MRCP: Significantly thickened peripheral rim of increased T2-weighted signal involving the gallbladder, compatible with gallbladder wall thickening and/or pericholecystic edema. In the correct clinical setting, these findings are highly
suggestive of acute cholecystitis. No evidence for biliary ductal dilation. No evidence for bile duct calculus.
--- NOTE | 2024-04-07 15:36 | CM ---
Patient seen bedside, initial assessment completed. Patient resides at [facility], came from [facility]. Patient uses a rolling walker for ambulation. Patient PCP Dr. Ng, pharmacy [facility] in [place]. Patient remains on IV
antibiotics. CM spoke with Bernice from [facility], patients son is paying for a bed hold at rehab. CM will continue to follow for discharge planning needs.
Plan; return to [facility] when stable.
--- NOTE | 2024-04-07 18:40 | W.PN.GI.CBS2 ---
Today's Communication / Plan
-
-Etiology of presenting symptoms likely secondary to acute cholecystitis. No evidence of choledocholithiasis noted on MRI and no evidence of pancreatitis either
Continues to have tenderness on palpation in the upper abdomen.
No fevers or leukocytosis
-Continue to hold Eliquis for planned laparoscopic cholecystectomy 04/08/2024
-Noted significant elevation in transaminases and also elevated total bilirubin and alkaline phosphatase
No hypotensive episodes, no evidence of sepsis. MRI without any thrombus
Hepatitis serologies negative
Will monitor closely
-Will follow for now
Assessment / Plan
-
The patient is an 88-year-old female with a past medical history significant for non-Hodgkin's lymphoma status post 2 rounds of chemotherapy currently in remission, atrial fibrillation on Eliquis, heart failure with preserved ejection fraction,
spinal abscess on prolonged course of antibiotics, who presents to the hospital for evaluation of abdominal pain. We are being asked to evaluate for possible gallstone pancreatitis. She presents with acute onset of abdominal pain in the upper
epigastric area rating to her back, found to have abnormal LFTs and CT imaging concerning for acute cholecystitis. Also with some findings concerning for possible choledocholithiasis. Her pancreas also appeared normal although with a greater than
4000 lipase level. She is n.p.o. at this time and her pain has improved markedly.
Problem list:
-Abdominal pain
-Ultrasound and CT findings concerning for acute cholecystitis, possible choledocholithiasis
-Abnormal LFTs
-Pancreatitis, lipase greater than 4000 although pancreas appears normal on imaging
-Prominence of the pancreatic duct and CBD on CT imaging
-History of non-Hodgkin's lymphoma status postchemotherapy x 2 around currently in remission
-Recent diagnosis of spinal abscess on prolonged IV antibiotic course, persistent fluid collection on CT scan
-Atrial fibrillation on Eliquis
-History of heart failure with preserved ejection fraction
MRI/MRCP- Significantly thickened peripheral rim of increased T2-weighted signal involving the gallbladder, compatible with gallbladder wall thickening and/or pericholecystic edema. In the correct clinical setting, these findings are highly
suggestive of acute cholecystitis.No evidence for biliary ductal dilation. No evidence for bile duct calculus.Subtle rounded region of heterogeneous signal abnormality involving the anterior spleen, also demonstrating heterogeneous enhancement on
prior CT of the chest abdomen and pelvis from March 01, 2024. No abnormal FDG uptake in this region on PET/CT scan of September 29, 2023. This is very likely a benign finding. If the patient is to have continued surveillance PET/CT examinations, that
would seem to be a reasonable method of follow-up.
Recommendations:
-Etiology of presenting symptoms likely secondary to acute cholecystitis. No evidence of choledocholithiasis noted on MRI and no evidence of pancreatitis either
Continues to have tenderness on palpation in the upper abdomen.
No fevers or leukocytosis
-Continue to hold Eliquis for planned laparoscopic cholecystectomy 04/08/2024
-Noted significant elevation in transaminases and also elevated total bilirubin and alkaline phosphatase
No hypotensive episodes, no evidence of sepsis. MRI without any thrombus
Hepatitis serologies negative
Will monitor closely
-Will follow for now
Subjective
Subjective
Date of Service: April 07, 2024
Patient denies any abdominal pain, nausea or vomiting.
No fevers or chills. Reported bowel movement today.
Objective
Data Reviewed
Laboratory Data:
Laboratory Results
04/07/24 05:06
04/07/24 05:06
Laboratory Results
Total Bilirubin 2.8 mg/dl (0.2-1.3) H D 04/07/24 05:06
AST 960 U/L (14-36) H* 04/07/24 05:06
ALT 589 U/L (0-35) H* 04/07/24 05:06
Alkaline Phosphatase 297 U/L (38-126) H 04/07/24 05:06
Lipase 343 U/L (23-300) H 04/07/24 05:06
Vital Signs and I&O:
Vital Signs
Temp Pulse Resp BP Pulse Ox
97.3 F 72 18 148/75 96
04/07/24 15:00 04/07/24 16:46 04/07/24 15:00 04/07/24 16:46 04/07/24 15:00
I&O
04/06/24 04/07/24 04/08/24
06:59 06:59 06:59
Intake Total 1979 / 1979 120 / 120
Output Total 500 / 500
Balance 1480 / 1480 120 / 120
Physical Exam
Physical Exam
GI: Soft and Tender (Tenderness on palpation of the upper abdomen)
[2024-04-07] MEDS: DILAUDID 0.25 MG IV (19:46)
[2024-04-08] VITALS (11 sets, daily range): BP systolic 116–154; BP diastolic 52–78
[2024-04-08] MEDS: FLAGYL 500 MG 100 IV ×3 (01:38→17:04)
[2024-04-08] MEDS: FLUSH (NSS) 1 FLUSH IV ×7 (01:41→23:12)
[2024-04-08 04:48] LABS: % Basophils 0.9 % (0-2); % Eosinophils 5.5 % (0-6); % Immature Granulocytes 0.2 % (0-0.5); % Lymphocytes 13.5 % (20.5-51.1); % Monocytes 14.2 % (1.7-9.3); % Neutrophils 65.7 % (42.2-75.2); Absolute Eosinophils 0.2 10^3/uL (0-0.7); Absolute Lymphocytes 0.6 10^3/uL (1.2-3.4); Absolute Monocytes 0.6 10^3/uL (0.1-0.6); Absolute Neutrophils 2.8 10^3/uL (1.4-6.5); Hematocrit 26.9 % (37.0-47.0); Hemoglobin 8.8 g/dL (12.0-16.0); Mean Corp Hgb Conc. 32.7 g/dL (33.0-37.0); Mean Corpuscular Hgb 31.2 pg (27.0-31.0); Mean Corpuscular Volume 95.4 fL (81.0-99.0); Mean Platelet Volume 10.4 fL (7.4-10.4); Nucleated Red Blood Cells % 0 %; Platelet Count 193 10^3/uL (130-400); Red Blood Cell Count 2.82 10^6/uL (4.20-5.40); Red Cell Dist. Width 14.8 % (11.5-14.5); White Blood Cell Count 4.2 10^3/uL (4.8-10.8)
[2024-04-08] MEDS: LR 1000 IV ×2 (05:31→23:08)
[2024-04-08 05:43] LABS: ALT (SGPT) 408 U/L (0-35); AST (SGOT) 403 U/L (14-36); Albumin 2.8 g/dl (3.5-5.0); Alkaline Phosphatase 296 U/L (38-126); Blood Urea Nitrogen 11 mg/dl (7-17); Calcium 8.7 mg/dl (8.4-10.2); Carbon Dioxide 29 mmol/L (22-30); Chloride 106 mmol/L (98-107); Estimated Creatinine Clearance 46 ml/min; Glucose 71 mg/dl (70-99); Lipase 112 U/L (23-300); Potassium 3.5 mmol/L (3.5-5.1); Sodium 139 mmol/L (135-145); Total Bilirubin 1.2 mg/dl (0.2-1.3); Total Protein 4.5 g/dl (6.3-8.2); eGFR > 60.00
--- NOTE | 2024-04-08 06:18 | PTCARENOTE ---
Patient NPO overnight for lap courtney in AM. First set of antiseptic wipes done by patient per protocol in AM, bed sheets and pt. gown changed. Pt. is resting comfortably at this time and awaiting procedure. Will continue to monitor.
--- NOTE | 2024-04-08 07:12 | W.PN.SURGUPD ---
Surgical Update
Surgical Update
Patient seen and examined this a.m. in follow-up.
We reviewed her MRCP from yesterday which is negative for choledocholithiasis. Gallbladder edema wall thickening. Sludge small stones as on ultrasound.
Clinically improved with resolution of symptoms, improvement in LFTs and normalization of lipase.
Reviewed with patient indications for cholecystectomy. We also discussed nonoperative management. Reviewed risks and benefits of either approach. Patient wishes to pursue cholecystectomy
She has been added onto the schedule for laparoscopic cholecystectomy with probable intraoperative cholangiogram today
Anticipated operative procedures been fully reviewed in detail with the patient preoperatively including operative technique, alternative treatment options, benefits and risks.
[2024-04-08] MEDS: NSS (PRESERVATIVE FREE) 10 ML IV (09:27)
[2024-04-08] MEDS: PACERONE PO (09:28)
[2024-04-08] MEDS: PROTONIX IV 40 MG IV (09:29)
[2024-04-08] MEDS: ProAmatine PO ×2 (09:29→15:34)
[2024-04-08] MEDS: STERILE WATER FOR INJECTION 20 ML IV ×2 (09:30→23:13)
[2024-04-08] MEDS: ROCEPHIN 2000 MG IV ×2 (09:30→23:06)
--- NOTE | 2024-04-08 10:38 | W.PN.ID1 ---
Date of Service
Date of Service: April 08, 2024
Today's Communication
Continue antibiotics. See below�
Assessment / Plan
Gallstone Pancreatitis
Cholecystitis
Hx Epidural abscess 2* to Strep viridans and
Para-spinal collection - s/p aspiration / drainage 03/06/24
Leukocytosis
Elevated CRP
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
Large B-cell lymphoma; on maintenance Rituxan
Atrial fibrillation
HTN
Recommendations:
Afebrile, without leukocytosis
Continue ceftriaxone / metronidazole
To complete a 6-week course of ceftriaxone (through 04/14/24)
Metronidazole can likely be discontinued at time of discharge.
Monitor white count and temperature curve.
PICC line in place
����������������������������������������������������������
Chief Complaint
-: Other (Cholecystitis; Hx epidural abscess)
Subjective / Review of Systems
Review of Systems: No Fever, No Chills and No Abdominal Pain
Vital Signs / Physical Exam
Vital Signs
Vital Signs
Temp Pulse Resp BP Pulse Ox
98.3 F 66 16 127/52 90
04/08/24 07:00 04/08/24 09:29 04/08/24 07:00 04/08/24 09:29 04/08/24 07:00
Physical Exam
Constitutional: No Acute Distress, Comfortable and Non-toxic
Eyes: No Conjunctival Hemorrhage and Sclera Anicteric
Pulmonary: Non Labored
Gastrointestinal: Non Distended
Neurological: Awake and Alert
Psychological: Calm
Objective Data
Lab Data
Lab Results
04/08/24 03:51
04/08/24 03:51
Estimated Creat Clear 46 ml/min 04/08/24 03:51
Total Bilirubin 1.2 mg/dl (0.2-1.3) D 04/08/24 03:51
AST 403 U/L (14-36) H 04/08/24 03:51
ALT 408 U/L (0-35) H 04/08/24 03:51
Alkaline Phosphatase 296 U/L (38-126) H 04/08/24 03:51
Most recent labs reviewed.
Imaging:
04/07/2024 MRCP: Significantly thickened peripheral rim of increased T2-weighted signal involving the gallbladder, compatible with gallbladder wall thickening and/or pericholecystic edema. In the correct clinical setting, these findings are highly
suggestive of acute cholecystitis. No evidence for biliary ductal dilation. No evidence for bile duct calculus.
--- NOTE | 2024-04-08 10:50 | W.PN.HOSP.TC ---
Today's Communication/Plan
-
Plan for OR today
Continue to hold Eliquis and other meds
IV fluids
IV antibiotics ceftriaxone and Flagyl for now
Assessment / Plan
Assessment / Plan
Acute Cholecystitis with Gallstone Pancreatitis
Elevated transaminitis 2/2 above
-Consult GI
-Continue NPO/IVFs. Decrease rate of IV fluids.
-Continue ceftriaxone and metronidazole
-MRCP negative for choledocholithiasis.
-Continue to hold Eliquis for now
-Plan for cholecystectomy later today. Postop diet per surgery. Restart Eliquis pending surgery clearance.
Recent Epidural and Left Piriformis Abscess
-CT scans shows persistent fluid collection at L4/L5 spinous process and rim enhancing fluid collection in left pelvis presacral space
-Continue ceftriaxone 2gm q12h
-Consult Neurosurgery-neurosurgery correspondence noted and CT scan will consistent with seroma. Agree white count normal afebrile. MRCP also consistent with seroma at L4/L5 site.
-Consult Infectious Disease
Paroxysmal Atrial Fibrillation
-Continue amiodarone
-Hold oral metoprolol - Add metoprolol 2.5mg IV prn elevate heart rate
-Hold Eliquis for anticipated procedure
Chronic HFpEF
-Hold torsemide
-Monitor Is&Os and Daily Weights
Hyperlipidemia
-Hold rosuvastatin
Orthostatic Hypotension
-Continue Midodrine
Stage IV Follicular Lymphoma
-Follows with Dr. Perdomo at [facility]
-MRCP with Subtle rounded region of heterogeneous signal abnormality involving the anterior spleen, also demonstrating heterogeneous enhancement on prior CT of the chest abdomen and pelvis from March 01, 2024. No abnormal FDG uptake in this region
on PET/CT scan of September 29, 2023. This is very likely a benign finding. If the patient is to have continued surveillance PET/CT examinations, that would seem to be a reasonable method of follow-up.
Chronic Anemia
-Hgb stable
DVT proph: SCDs until able to resume Eliquis
Code Status: Full Code
Updated daughter over the phone in complete details on 04/07
Anticipated Discharge: > 48 hours
Subjective/Interval History
-
Date of Service: April 08, 2024
Had some abd pain overnight
currently resting in bed
agreeable for surgery later today
Objective Data
-
Labs:
Laboratory Results
04/08/24
03:51
WBC 4.2 L
Hgb 8.8 L
Hct 26.9 L
Plt Count 193
Sodium 139
Potassium 3.5
Chloride 106
Carbon Dioxide 29
BUN 11
Creatinine 0.7
Glucose 71
Calcium 8.7
Total Bilirubin 1.2 D
AST 403 H
ALT 408 H
Alkaline Phosphatase 296 H
Vital Signs:
Vital Signs
Temp Pulse Resp BP Pulse Ox
98.3 F 66 16 127/52 90
04/08/24 07:00 04/08/24 09:29 04/08/24 07:00 04/08/24 09:29 04/08/24 07:00
I&O
04/07/24 04/08/24 04/09/24
06:59 06:59 06:59
Intake Total 1979 1320 / 1320
Output Total 500 / 500
Balance 1480 / 1480 1320 / 1320
Physical Exam
-
General: Well Developed and Well Nourished
HEENT: Normocephalic and Atraumatic
Respiratory: Negative Wheezes or Rales
Cardiac: Regular Rhythm and S1/S2
GI: Soft, Nontender and Nondistended
Genito-urinary: No Costovertebral Tender
Neuro: Awake, AO x 3 and No Motor Deficits
Hematologic / Lymphatic: No Lymphadenopathy
Psych: Calm
Data Reviewed
-
Total Time Spent with Patient (in minutes): 55
--- NOTE | 2024-04-08 13:48 | W.IMMPOSTOP ---
Addendum entered and electronically signed by Moose Boland MD 04/08/24 14:39:
#[id number]
Original Note:
Surgical Immed Post Op Note
-
Primary Surgeon: Krystian
Assisting Surgeon: None
Pre-op Diagnosis: ACC
Post-op Diagnosis: ACC
Procedure Performed: lap courtney with IOC
Anesthesia Type: GETA + 0.25% Marcaine
Specimen / Cultures: GB
Estimated Blood Loss: 6mL
Complications: none immediate
Operative Findings: distended and flaccid GB with significant edema. IOC normal. cystic duct controlled with clips as well as artery and branch.
Plan: routine post op care
advance diet as tolerated
hold therapeutic AC for 72 hrs post op
updated patients daughter post op via phone call
[2024-04-08] MEDS: DILAUDID 0.25 MG IV (14:01)
[2024-04-08] MEDS: ZOFRAN 4 MG IV (14:12)
--- NOTE | 2024-04-08 15:16 | CM ---
CM reviewed chart, plan for OR today. Patient remains on IV fluids and IV antibiotics. Patient plan return to [facility] when stable. Per Bernice at [facility], son paying for bed hold. CM will continue to follow for discharge
planning needs.
Plan; return to [facility] when medically stable.
--- NOTE | 2024-04-08 15:58 | W.PN.GI.CBS2 ---
Today's Communication / Plan
-
IOC is clear, no role for ERCP
Pt updated
GI will sign off please call for questions
Assessment / Plan
-
The patient is an 88-year-old female with a past medical history significant for non-Hodgkin's lymphoma status post 2 rounds of chemotherapy currently in remission, atrial fibrillation on Eliquis, heart failure with preserved ejection fraction,
spinal abscess on prolonged course of antibiotics, who presents to the hospital for evaluation of abdominal pain. We are being asked to evaluate for possible gallstone pancreatitis. She presents with acute onset of abdominal pain in the upper
epigastric area rating to her back, found to have abnormal LFTs and CT imaging concerning for acute cholecystitis. Also with some findings concerning for possible choledocholithiasis. Her pancreas also appeared normal although with a greater than
4000 lipase level. She is n.p.o. at this time and her pain has improved markedly.
Problem list:
-Abdominal pain
-Ultrasound and CT findings concerning for acute cholecystitis, possible choledocholithiasis
-Abnormal LFTs
-Pancreatitis, lipase greater than 4000 although pancreas appears normal on imaging
-Prominence of the pancreatic duct and CBD on CT imaging
-History of non-Hodgkin's lymphoma status postchemotherapy x 2 around currently in remission
-Recent diagnosis of spinal abscess on prolonged IV antibiotic course, persistent fluid collection on CT scan
-Atrial fibrillation on Eliquis
-History of heart failure with preserved ejection fraction
MRI/MRCP- Significantly thickened peripheral rim of increased T2-weighted signal involving the gallbladder, compatible with gallbladder wall thickening and/or pericholecystic edema. In the correct clinical setting, these findings are highly
suggestive of acute cholecystitis.No evidence for biliary ductal dilation. No evidence for bile duct calculus.Subtle rounded region of heterogeneous signal abnormality involving the anterior spleen, also demonstrating heterogeneous enhancement on
prior CT of the chest abdomen and pelvis from March 01, 2024. No abnormal FDG uptake in this region on PET/CT scan of September 29, 2023. This is very likely a benign finding. If the patient is to have continued surveillance PET/CT examinations, that
would seem to be a reasonable method of follow-up.
Recommendations:
- s/p CYY today with clear IOC
- No indication for ERCP at this juncture
- C/w CLD and diet advancement per surgery
- At this juncture no new GI recs will sign off please call for questions
Subjective
Subjective
Date of Service: April 08, 2024
She had CYY with clear IOC today by Dr Boland. Feels thirsty
Objective
Data Reviewed
Laboratory Data:
Laboratory Results
04/08/24 03:51
04/08/24 03:51
Laboratory Results
Total Bilirubin 1.2 mg/dl (0.2-1.3) D 04/08/24 03:51
AST 403 U/L (14-36) H 04/08/24 03:51
ALT 408 U/L (0-35) H 04/08/24 03:51
Alkaline Phosphatase 296 U/L (38-126) H 04/08/24 03:51
Lipase 112 U/L (23-300) 04/08/24 03:51
Vital Signs and I&O:
Vital Signs
Temp Pulse Resp BP Pulse Ox
97.7 F 69 14 118/57 90
04/08/24 15:07 04/08/24 15:07 04/08/24 15:07 04/08/24 15:07 04/08/24 15:07
I&O
04/07/24 04/08/24 04/09/24
06:59 06:59 06:59
Intake Total 1979 / 1979 1320 / 1320 100 / 100
Output Total 500 / 500
Balance 1480 / 1480 1320 / 1320 100 / 100
Physical Exam
Physical Exam
GEN: No acute distress, conversant, pleasant
HEENT: anicteric, extraocular movements intact, clear oropharynx without exudates
GI: soft, non-distended, not tender to palpation, normal active bowel sounds, no hepatosplenomegaly
EXT: warm, well perfused, trace edema bilaterally
NEURO: AAOx3, non-focal
[2024-04-08] MEDS: ProAmatine 7.5 MG PO (17:05)
[2024-04-08] MEDS: LOVENOX 40 MG SC (17:19)
[2024-04-08] MEDS: LR IV (17:23)
[2024-04-08] MEDS: TYLENOL 650 MG PO (20:55)
[2024-04-09] MEDS: FLAGYL 500 MG 100 IV ×2 (02:05→09:58)
[2024-04-09 03:00] VITALS: BP 119/51
[2024-04-09 06:00] VITALS: BMI 21.8
[2024-04-09] MEDS: TYLENOL 650 MG PO ×2 (06:13→16:07)
[2024-04-09 06:48] LABS: % Immature Granulocytes 0.4 % (0-0.5); % Lymphocytes 15.5 % (20.5-51.1); % Monocytes 10.2 % (1.7-9.3); % Neutrophils 73.9 % (42.2-75.2); Absolute Lymphocytes 0.4 10^3/uL (1.2-3.4); Absolute Monocytes 0.3 10^3/uL (0.1-0.6); Absolute Neutrophils 2.1 10^3/uL (1.4-6.5); Hemoglobin 9.6 g/dL (12.0-16.0); Mean Corp Hgb Conc. 33.1 g/dL (33.0-37.0); Mean Corpuscular Hgb 31.5 pg (27.0-31.0); Mean Corpuscular Volume 95.1 fL (81.0-99.0); Mean Platelet Volume 10.7 fL (7.4-10.4); Nucleated Red Blood Cells % 0 %; Platelet Count 213 10^3/uL (130-400); Red Blood Cell Count 3.05 10^6/uL (4.20-5.40); Red Cell Dist. Width 14.8 % (11.5-14.5); White Blood Cell Count 2.8 10^3/uL (4.8-10.8)
[2024-04-09 07:01] LABS: ALT (SGPT) 294 U/L (0-35); AST (SGOT) 154 U/L (14-36); Alkaline Phosphatase 269 U/L (38-126); Blood Urea Nitrogen 17 mg/dl (7-17); Calcium 8.9 mg/dl (8.4-10.2); Carbon Dioxide 23 mmol/L (22-30); Chloride 105 mmol/L (98-107); Estimated Creatinine Clearance 46 ml/min; Glucose 117 mg/dl (70-99); Potassium 3.9 mmol/L (3.5-5.1); Sodium 139 mmol/L (135-145); Total Bilirubin 0.7 mg/dl (0.2-1.3); Total Protein 4.8 g/dl (6.3-8.2); eGFR > 60.00
[2024-04-09 07:55] VITALS: BP 129/58
[2024-04-09] MEDS: PACERONE 100 MG PO (09:58)
[2024-04-09] MEDS: LOPRESSOR 12.5 MG PO ×2 (09:58→20:04)
[2024-04-09] MEDS: B COMPLEX w/VITAMIN C 1 CAPLET PO (09:58)
[2024-04-09] MEDS: CRESTOR 10 MG PO (09:58)
[2024-04-09] MEDS: FLUSH (NSS) 1 FLUSH IV ×4 (09:59→22:59)
[2024-04-09] MEDS: ProAmatine 7.5 MG PO ×2 (09:59→16:07)
[2024-04-09] MEDS: PROTONIX IV 40 MG IV (09:59)
[2024-04-09] MEDS: ROCEPHIN 2000 MG IV ×2 (10:00→23:05)
[2024-04-09] MEDS: NSS (PRESERVATIVE FREE) 10 ML IV (10:00)
[2024-04-09] MEDS: STERILE WATER FOR INJECTION 20 ML IV ×2 (10:00→23:05)
[2024-04-09] MEDS: LR 1000 IV (10:06)
--- NOTE | 2024-04-09 11:02 | W.PN.HOSP.TC ---
Today's Communication/Plan
-
GS recs
fulls
dc IVF
Assessment / Plan
Assessment / Plan
Acute Cholecystitis with Gallstone Pancreatitis
Elevated transaminitis 2/2 above
-Consult GI
-Continue NPO/IVFs. Decrease rate of IV fluids.
-Continue ceftriaxone and metronidazole
-MRCP negative for choledocholithiasis.
-Continue to hold Eliquis for 72h post surgery per Dr. Boland.
-Transaminitis continues to improve
-s/p lap courtney on 04/08 distended and flaccid GB with significant edema. IOC normal. cystic duct controlled with clips as well as artery and branch.
Recent Epidural and Left Piriformis Abscess
-CT scans shows persistent fluid collection at L4/L5 spinous process and rim enhancing fluid collection in left pelvis presacral space
-Continue ceftriaxone 2gm q12h till 04/14.
-Consult Neurosurgery-neurosurgery correspondence noted and CT scan wilth consistent with seroma. Agree white count normal afebrile. MRCP also consistent with seroma at L4/L5 site.
-Consult Infectious Disease
Paroxysmal Atrial Fibrillation
-Continue amiodarone
-restart BB.
-Hold Eliquis as per above
Chronic HFpEF
-restart torsemide
-Monitor Is&Os and Daily Weights
Hyperlipidemia
-Hold rosuvastatin
Orthostatic Hypotension
-Continue Midodrine
Stage IV Follicular Lymphoma
-Follows with Dr. Perdomo at [facility]
-MRCP with Subtle rounded region of heterogeneous signal abnormality involving the anterior spleen, also demonstrating heterogeneous enhancement on prior CT of the chest abdomen and pelvis from March 01, 2024. No abnormal FDG uptake in this region
on PET/CT scan of September 29, 2023. This is very likely a benign finding. If the patient is to have continued surveillance PET/CT examinations, that would seem to be a reasonable method of follow-up.
Chronic Anemia
-Hgb stable
DVT proph: lovenox
Code Status: Full Code
Updated daughter over the phone in complete details on 04/07 and 04/09
Anticipated Discharge: Within 24 hours
Subjective/Interval History
-
Date of Service: April 09, 2024
Tolerated liquids so far
want to eat regular
afebrile
no abd pain or nausea or vomiting
Objective Data
-
Labs:
Laboratory Results
04/09/24
05:47
WBC 2.8 L
Hgb 9.6 L
Hct 29.0 L
Plt Count 213
Sodium 139
Potassium 3.9
Chloride 105
Carbon Dioxide 23
BUN 17
Creatinine 0.7
Glucose 117 H
Calcium 8.9
Total Bilirubin 0.7
AST 154 H
ALT 294 H
Alkaline Phosphatase 269 H
Vital Signs:
Vital Signs
Temp Pulse Resp BP Pulse Ox
97.9 F 64 16 129/58 94
04/09/24 07:55 04/09/24 07:55 04/09/24 07:55 04/09/24 07:55 04/09/24 07:55
I&O
04/08/24 04/09/24 04/10/24
06:59 06:59 06:59
Intake Total 1320 / 1320 100 / 100 240 / 240
Balance 1320 / 1320 100 / 100 240 / 240
Data Reviewed
-
Total Time Spent with Patient (in minutes): 55
[2024-04-09 11:58] VITALS: BP 158/65
[2024-04-09] MEDS: ProAmatine PO (12:00)
--- NOTE | 2024-04-09 13:53 | W.PN.GS2 ---
Addendum entered and electronically signed by Elliot Mathews MD 04/09/24 14:34:
I saw and examined the patient.
The Nurse Substance Abuse's note was reviewed and I agree with the note.
Comment: No complaints, desirous of DC, exam approp. OK for DC from surg standpoint. Pls call with ?s
Addendum entered and electronically signed by KAR Harris 04/09/24 13:58:
Hold Eliquis for 72 hours post op. Ok to resume Thursday evening.
Original Note:
Today's Communication / Plan
-
Dispo planning
Assessment / Plan
-
Assessment: 88-year-old female presenting with presumed gallstone mediated acute pancreatitis and elevated LFTs.
MRCP negative for choledocholithiasis now POD #1 lap courtney
AFVSS
Labs continue to improve/normalize
Leukopenia present
Plan:
Advance to LFD
Multimodal analgesics prn
Ok for d/c from surgical standpoint once tolerating diet. Dispo instructions updated.
Medical management as per primary team
Subjective Data
-
Date of Service: April 09, 2024
Patient seen and examined at bedside with Dr. Mathews. Denies n/v. Feeling much better. Mild discomfort at incisions. Passing flatus. Tolerating liquids. In good spirits and feels ready to return to [facility]
Objective Data
-
Intake and Output
04/08/24 04/09/24 04/10/24
06:59 06:59 06:59
Intake Total 1320 / 1320 100 / 100 240 / 240
Balance 1320 / 1320 100 / 100 240 / 240
Intake:
Oral fluids 120 / 120 240 / 240
IV fluids (Total) 1200 / 1200 100 / 100
normosol 100 / 100
Other:
Number of approximated MODERATE 3 2
amounts of urine
Vital Signs
Temp Pulse Resp BP Pulse Ox
97.8 F 65 16 158/65 93
04/09/24 11:58 04/09/24 11:58 04/09/24 11:58 04/09/24 11:58 04/09/24 11:58
Lab Results
04/09/24 05:47
04/09/24 05:47
Calcium 8.9 mg/dl (8.4-10.2) 04/09/24 05:47
Total Bilirubin 0.7 mg/dl (0.2-1.3) 04/09/24 05:47
Direct Bilirubin 2.5 mg/dl (0.0-0.4) H 04/07/24 05:06
AST 154 U/L (14-36) H 04/09/24 05:47
ALT 294 U/L (0-35) H 04/09/24 05:47
Alkaline Phosphatase 269 U/L (38-126) H 04/09/24 05:47
Total Protein 4.8 g/dl (6.3-8.2) L 04/09/24 05:47
Albumin 3.0 g/dl (3.5-5.0) L 04/09/24 05:47
Physical Exam
-
NAD AAOx3
ABD: Soft, nondistended, mild incisional tenderness
Incisions clear, dry, intact glue
--- NOTE | 2024-04-09 14:25 | W.PN.ID1 ---
Date of Service
Date of Service: April 09, 2024
Today's Communication
To complete a 6-week course of ceftriaxone (through 04/14/24) for epidural abscess
DC metronidazole.
Assessment / Plan
Cholecystitis
Gallstone Pancreatitis
- s/p lap courtney (04/08/24)
Hx Epidural abscess 2* to Strep viridans and
Para-spinal collection - s/p aspiration / drainage 03/06/24
Leukocytosis
Elevated CRP
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
Large B-cell lymphoma; on maintenance Rituxan
Atrial fibrillation
HTN
Recommendations:
Afebrile, without leukocytosis
Continue ceftriaxone / metronidazole
To complete a 6-week course of ceftriaxone (through 04/14/24) for epidural abscess
DC metronidazole.
PICC line in place
OK for dc to [facility].
����������������������������������������������������������
Chief Complaint
-: Other (Cholecystitis; Hx epidural abscess)
Subjective / Review of Systems
Feels good. Has some stool incontinence since lap courtney.
No back pain.
Vital Signs / Physical Exam
Vital Signs
Vital Signs
Temp Pulse Resp BP Pulse Ox
97.8 F 65 16 158/65 93
04/09/24 11:58 04/09/24 11:58 04/09/24 11:58 04/09/24 11:58 04/09/24 11:58
Physical Exam
Constitutional: No Acute Distress and Comfortable
Pulmonary: Clear
Neurological: AO x 3
Objective Data
Lab Data
Lab Results
04/09/24 05:47
04/09/24 05:47
Estimated Creat Clear 46 ml/min 04/09/24 05:47
Total Bilirubin 0.7 mg/dl (0.2-1.3) 04/09/24 05:47
AST 154 U/L (14-36) H 04/09/24 05:47
ALT 294 U/L (0-35) H 04/09/24 05:47
Alkaline Phosphatase 269 U/L (38-126) H 04/09/24 05:47
Most recent labs reviewed.
Imaging:
04/07/2024 MRCP: Significantly thickened peripheral rim of increased T2-weighted signal involving the gallbladder, compatible with gallbladder wall thickening and/or pericholecystic edema. In the correct clinical setting, these findings are highly
suggestive of acute cholecystitis. No evidence for biliary ductal dilation. No evidence for bile duct calculus.
--- NOTE | 2024-04-09 14:35 | CM ---
Chart reviewed and plan is for patient to return to the [facility] showcase trimmer reached out to Bernice in admissions at the [facility] and they can accept patient tomorrow, after her morning dose of IV ABX. Patient will need COVID test.
[facility]
Report [phone]
[2024-04-09 15:50] VITALS: BP 145/67
[2024-04-09] MEDS: LOVENOX 40 MG SC (17:02)
[2024-04-09 19:42] VITALS: BP 133/65
[2024-04-09] MEDS: FLUSH (NSS) IV (23:06)
[2024-04-09 23:56] VITALS: BP 149/75
[2024-04-10 03:33] VITALS: BP 133/64
[2024-04-10 06:00] VITALS: BMI 22.4
[2024-04-10 06:22] LABS: % Basophils 0.5 % (0-2); % Eosinophils 1.7 % (0-6); % Immature Granulocytes 0.3 % (0-0.5); % Lymphocytes 15.5 % (20.5-51.1); % Monocytes 12.6 % (1.7-9.3); % Neutrophils 69.4 % (42.2-75.2); Absolute Eosinophils 0.1 10^3/uL (0-0.7); Absolute Lymphocytes 0.9 10^3/uL (1.2-3.4); Absolute Monocytes 0.7 10^3/uL (0.1-0.6); Hematocrit 29.4 % (37.0-47.0); Hemoglobin 9.6 g/dL (12.0-16.0); Mean Corp Hgb Conc. 32.7 g/dL (33.0-37.0); Mean Corpuscular Hgb 31.6 pg (27.0-31.0); Mean Corpuscular Volume 96.7 fL (81.0-99.0); Mean Platelet Volume 10.3 fL (7.4-10.4); Nucleated Red Blood Cells % 0 %; Platelet Count 218 10^3/uL (130-400); Red Blood Cell Count 3.04 10^6/uL (4.20-5.40); White Blood Cell Count 5.8 10^3/uL (4.8-10.8)
[2024-04-10 06:53] LABS: ALT (SGPT) 191 U/L (0-35); AST (SGOT) 70 U/L (14-36); Albumin 2.9 g/dl (3.5-5.0); Alkaline Phosphatase 230 U/L (38-126); Blood Urea Nitrogen 18 mg/dl (7-17); Calcium 8.9 mg/dl (8.4-10.2); Carbon Dioxide 28 mmol/L (22-30); Chloride 106 mmol/L (98-107); Estimated Creatinine Clearance 46 ml/min; Glucose 86 mg/dl (70-99); Potassium 3.4 mmol/L (3.5-5.1); Sodium 140 mmol/L (135-145); Total Bilirubin 0.6 mg/dl (0.2-1.3); Total Protein 4.6 g/dl (6.3-8.2); eGFR > 60.00
[2024-04-10 07:30] VITALS: BP 161/70
[2024-04-10] MEDS: TYLENOL 650 MG PO (08:18)
[2024-04-10] MEDS: B COMPLEX w/VITAMIN C 1 CAPLET PO (08:19)
[2024-04-10] MEDS: ProAmatine 7.5 MG PO (08:19)
[2024-04-10] MEDS: PACERONE 100 MG PO (08:19)
[2024-04-10] MEDS: LOPRESSOR 12.5 MG PO (08:19)
[2024-04-10] MEDS: DEMADEX 20 MG PO (08:19)
[2024-04-10] MEDS: FLUSH (NSS) IV ×2 (08:20→08:26)
[2024-04-10] MEDS: PROTONIX IV 40 MG IV (08:20)
[2024-04-10] MEDS: NSS (PRESERVATIVE FREE) 10 ML IV (08:20)
[2024-04-10] MEDS: KCL ELIXIR 40 MEQ PO (08:25)
[2024-04-10 08:54] LABS: COVID-19 Antigen Negative (Negative)
[2024-04-10] MEDS: ROCEPHIN 2000 MG IV (09:38)
[2024-04-10] MEDS: STERILE WATER FOR INJECTION 20 ML IV (09:38)
--- NOTE | 2024-04-10 10:07 | W.PN.HOSP.TC ---
Today's Communication/Plan
-
dc to snf
op GS f/u
Assessment / Plan
Assessment / Plan
Acute Cholecystitis with Gallstone Pancreatitis
Elevated transaminitis 2/2 above
-Consult GI
-DC IVF.
-Continue ceftriaxone and metronidazole. Stop flagyl.
-MRCP negative for choledocholithiasis.
-Continue to hold Eliquis for 72h post surgery per Dr. Boland.
-Transaminitis continues to improve
-s/p lap courtney on 04/08 distended and flaccid GB with significant edema. IOC normal. cystic duct controlled with clips as well as artery and branch.
Recent Epidural and Left Piriformis Abscess
-CT scans shows persistent fluid collection at L4/L5 spinous process and rim enhancing fluid collection in left pelvis presacral space
-Continue ceftriaxone 2gm q12h till 04/14.
-Consult Neurosurgery-neurosurgery correspondence noted and CT scan wilth consistent with seroma. Agree white count normal afebrile. MRCP also consistent with seroma at L4/L5 site.
-Consult Infectious Disease
Paroxysmal Atrial Fibrillation
-Continue amiodarone
-restart BB.
-Hold Eliquis as per above
Chronic HFpEF
-restart torsemide
-Monitor Is&Os and Daily Weights
Hyperlipidemia
-Hold rosuvastatin
Orthostatic Hypotension
-Continue Midodrine
Stage IV Follicular Lymphoma
-Follows with Dr. Perdomo at [facility]
-MRCP with Subtle rounded region of heterogeneous signal abnormality involving the anterior spleen, also demonstrating heterogeneous enhancement on prior CT of the chest abdomen and pelvis from March 01, 2024. No abnormal FDG uptake in this region
on PET/CT scan of September 29, 2023. This is very likely a benign finding. If the patient is to have continued surveillance PET/CT examinations, that would seem to be a reasonable method of follow-up.
Chronic Anemia
-Hgb stable
DVT proph: lovenox
Code Status: Full Code
Updated daughter over the phone in complete details on 04/07 and 04/09
More than 30 minutes spent in discharge including
Final examination of the patient
Summarizing hospital stay
Instructions for continuing care to all relevant caregivers
Preparation of discharge records, prescriptions, and referral forms
Total time spent (in minutes): 52
Anticipated Discharge: Today
Subjective/Interval History
-
Date of Service: April 10, 2024
Tolerating diet
mild incisional pain
no nausea or vomiting
Objective Data
-
Labs:
Laboratory Results
04/10/24
06:07
WBC 5.8
Hgb 9.6 L
Hct 29.4 L
Plt Count 218
Sodium 140
Potassium 3.4 L
Chloride 106
Carbon Dioxide 28
BUN 18 H
Creatinine 0.7
Glucose 86
Calcium 8.9
Total Bilirubin 0.6
AST 70 H
ALT 191 H
Alkaline Phosphatase 230 H
Vital Signs:
Vital Signs
Temp Pulse Resp BP Pulse Ox
98.3 F 61 16 161/70 98
04/10/24 07:30 04/10/24 07:30 04/10/24 07:30 04/10/24 07:30 04/10/24 07:30
I&O
04/09/24 04/10/24 04/11/24
06:59 06:59 06:59
Intake Total 100 / 100 1200 / 1200
Balance 100 / 100 1200 / 1200
--- NOTE | 2024-04-10 10:09 | W.DCSUMMARY ---
Discharge Summary
Discharge Data
Date of Admission: 04/06/24
Date of Discharge: 04/10/24
-
Pending Results: No
Hospital Course
88-year-old female with extensive past medical history of stage IV follicular lymphoma, orthostatic hypertension, hyperlipidemia chronic HFpEF, atrial fibrillation recent prolonged hospitalization with epidural and left peripheral abscess status
post evacuation by neurosurgery and status post IR drain placement and removal who is presenting to the hospital with abdominal pain. Patient with severely elevated LFTs and lipase. Patient underwent imaging studies with concern for acute
cholecystitis. There was concern of choledocholithiasis and patient underwent MRCP. MRCP was found to be negative for choledocholithiasis. Gastrointestinal signed off. General surgery was following the patient took patient for laparoscopic
cholecystectomy. On the CT abdomen pelvis there was seroma which was noted in L4-L5 spinous process. Patient underwent L4/L5 evacuation by neurosurgery during previous hospitalization. Neurosurgery was consulted. MRCP of the abdomen also showed
and consistent with seroma L4-L5 site and no further intervention required. ID was following as patient on chronic antibiotics and was recommended continue ceftriaxone and Flagyl was added during hospitalization. Plan was to DC Flagyl on discharge
and continue with ceftriaxone. Postop patient was tolerating liquids and was returned still low-fat. Patient was starting low-fat diet and tolerating it. Patient will be discharged back to previous living situation at SNF.
Discharge Plan
-
Patient Disposition: Detention/SNF
Discharge Diagnosis/Procedures: Acute cholecystitis due to gallstone pancreatitis
Transaminitis secondary to acute cholecystitis
Condition: Fair
Diet: Low Fat
Activity: No strenuous activity
Bathing Restrictions: OK to Shower
Blood Work: Repeat CMP in 5 to 7 days with primary doctor
Activity Restrictions/Additional Instructions:
Post-Operative Instructions for Gallbladder Surgery
The incision sites are sealed with a surgical glue dressing.� It is safe to shower at any time after surgery when the glue is dry.� Let shower water run over the incisions and then pat dry.
Glue dressing typically peels off in 2-3 weeks.
Abdominal/incisional pain and discomfort, shoulder/scapular pain, bloating, and mild nausea, as well as bruising/stiffness and swelling at the incision sites are common after surgery.� If felt to be excessive, notify us.
Please start postoperative pain management using over the counter medications such as Tylenol and Ibuprofen, per instructions on the bottle, as long as there are no medical reasons why you cannot take these medications.
Ice the incisions sites for 20 minutes every hour or so to help with postoperative incisional pain and reduce postoperative surgical site swelling.� Take care NOT to get an ice burn on the skin surface.
A warm heating pad is often helpful to alleviate shoulder/scapular back pains after laparoscopic procedures.� This pain typically dissipates 24-72hrs post op.
Transition to a low fat diet as tolerated after surgery if not experiencing postoperative nausea or significant bloating/distention.� Some fatty food intolerance may occur shortly after surgery (cramps,bloating, nausea,diarrhea with fat intake).
Constipation is common following surgery and postoperative narcotic use.� May use a stool softener such as Colace (100 mg 2x day) to prevent constipation
If no BM 24hrs after surgery, recommend starting daily Miralax
If no BM in 24-48hrs after starting Miralax --> recommend then using a dose of magnesium citrate or milk of magnesia with a Senokot tablet to help alleviate post operative constipation as long as there is no nausea/vomiting and passing gas.
Resume all preoperative medications as prescribed, unless directed otherwise.
Do not drive or drink alcohol for 24 hrs after having anesthesia or while taking narcotic pain medications.
Resume regular daily light activities, such as walking, standing and going up/down stairs as tolerated within 24hrs of surgery.� Please refrain from lifting over 20 lbs or strenuous exercise until postoperative follow up visit &/or approximately
3-4 weeks.�
Call the office with a fever above 101� F, nausea with vomiting, severe abdominal pain, yellowing of skin or eyes, spreading redness and drainage from incision sites or with any concerns/questions.
If not arranged prior to surgery, please call the office to schedule or confirm your 10-14 day postoperative surgical follow-up office visit with Dr. Boland.
Hold Eliquis for 72 hours post op. Ok to resume Thursday evening 04/11/24 pm.
Referrals:
Lucio Ng DO [Family Provider] -
Moose Boland MD [Active] - in two to three weeks
Ana Covington MD [Active] - in two weeks
Prescriptions:
Continued
torsemide 20 MG tablet
20 mg PO DAILY
metoprolol tartrate 25 MG tablet
12.5 mg PO BID
potassium chloride [Klor-Con M20] 20 MEQ tablet,ER particles/crystals
20 meq PO DAILY
amiodarone 100 mg Tablet
100 mg PO DAILY
ibandronate 150 mg Tablet
150 mg PO QMONTH
Visbiome 112.5 billion cell Capsule
1 cap PO DAILY
vitamin B complex Tablet
1 tab PO DAILY
calcium carbonate-vitamin D3 [Calcium 500 + D] 500 mg-10 mcg (400 unit) Tablet
1 tab PO DAILY
coQ10 (ubiquinol) 100 mg Capsule
100 mg PO DAILY
ondansetron HCl 4 mg Tablet
4 mg PO DAILY
pantoprazole 20 mg Tablet,Delayed Release (Dr/Ec)
20 mg PO DAILY
docusate sodium [Colace] 100 mg Capsule
100 mg PO DAILY
midodrine 2.5 mg Tablet
2.5 mg PO TID
Rx Instructions:
take with 5mg TID
therapeutic multivitamin Tablet
1 tab PO DAILY
midodrine 5 mg tablet
5 mg PO TID
gabapentin 100 mg capsule
100 mg PO TID
ceftriaxone 2 gram recon soln
2,000 mg IV Q12H
Rx Instructions:
through 04/14 for 37 days starting
Changed
acetaminophen [Tylenol Extra Strength] 500 mg tablet
500 mg PO TID PRN (Reason: Pain) Qty: 0 0RF
Held
rosuvastatin 5 MG tablet
10 mg PO DAILY
Hold Instructions: Resume on 04/18/24.
Eliquis 2.5 MG tablet
2.5 mg PO BID
Hold Instructions: Resume on 04/11/24. resume Thursday evening
Discharge Orders:
Discharge Patient (As Directed); Ordered 04/10/24
Ordered By: Francesco Alexander
Discharge Date and Time
Discharge Date/Time: 04/10/24 11:20
Print Language: [place]
--- NOTE | 2024-04-10 10:11 | CM ---
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
[facility]
Report [phone]
== END 2024-04-10 11:20 | DRG 417 ==
LOC: 4 WEST ACU 14:31
PROVIDERS: Emergency Medicine; Physician Assistant Medical; Surgery; ADMITTING PHYSICIAN Hospitalist; CONSULT PHYSICIAN Internal Medicine Gastroenterology; CONSULT PHYSICIAN Neurological Surgery; CONSULT PHYSICIAN Student in an Organized Health Care Education/Training Program; CONSULT PHYSICIAN Surgery; EMERGENCY PHYSICIAN Emergency Medicine; FAMILY PHYSICIAN Family Medicine
PROC: 0FT44ZZ Resection of Gallbladder, Percutaneous Endoscopic Approach (ICD-10-PCS; 2024-04-08)
PROC: BF141ZZ Fluoroscopy of Gallbladder, Bile Ducts and Pancreatic Ducts using Low Osmolar Contrast (ICD-10-PCS; 2024-04-08)
DX: K81.0 Acute cholecystitis (principal); G06.1 Intraspinal abscess and granuloma; K85.10 Biliary acute pancreatitis without necrosis or infection; I50.32 Chronic diastolic (congestive) heart failure; M60.08 Infective myositis, other site; C82.90 Follicular lymphoma, unspecified, unspecified site; D84.821 Immunodeficiency due to drugs; I48.0 Paroxysmal atrial fibrillation; I11.0 Hypertensive heart disease with heart failure; I95.1 Orthostatic hypotension; E78.00 Pure hypercholesterolemia, unspecified; K21.9 Gastro-esophageal reflux disease without esophagitis; M81.0 Age-related osteoporosis without current pathological fracture; R74.01 Elevation of levels of liver transaminase levels; D64.9 Anemia, unspecified; I34.0 Nonrheumatic mitral (valve) insufficiency; Z96.642 Presence of left artificial hip joint; Z79.01 Long term (current) use of anticoagulants; Z88.1 Allergy status to other antibiotic agents; Z91.041 Radiographic dye allergy status; Z88.8 Allergy status to other drugs, medicaments and biological substances; Z91.048 Other nonmedicinal substance allergy status; Z92.21 Personal history of antineoplastic chemotherapy; Z79.2 Long term (current) use of antibiotics; Z11.52 Encounter for screening for COVID-19; Z79.69 Long term (current) use of other immunomodulators and immunosuppressants
CPT/HCPCS: 88304; 71045; 74177; 74183; 74300; 76000; 76700; 80053; 81003; 81015; 82248; 83690; 85025; 85027; 86850; 86900; 86901; 87811; 97161; 97165; 99285; A9575; Q9967

== ENCOUNTER → 2024-04-25 14:34 | Outpatient (REF) | payer MEDICARE, BC, SELFPAY | LOC: WDC 14:34 | PROVIDERS: ATTENDING PHYSICIAN Obstetrics & Gynecology; FAMILY PHYSICIAN Internal Medicine | DX: R92.2 Inconclusive mammogram (principal) | CPT/HCPCS: 76641 ==

== ENCOUNTER → 2024-05-06 13:34 | Outpatient (REF) | payer MEDICARE, BC, SELFPAY ==
[2024-05-06 15:58] LABS: % Basophils 0.6 % (0-2); % Eosinophils 3.8 % (0-6); % Immature Granulocytes 0.3 % (0-0.5); % Lymphocytes 21.2 % (20.5-51.1); % Monocytes 13.5 % (1.7-9.3); % Neutrophils 60.6 % (42.2-75.2); Absolute Eosinophils 0.3 10^3/uL (0-0.7); Absolute Lymphocytes 1.4 10^3/uL (1.2-3.4); Absolute Monocytes 0.9 10^3/uL (0.1-0.6); Hematocrit 36.6 % (37.0-47.0); Hemoglobin 11.6 g/dL (12.0-16.0); Mean Corp Hgb Conc. 31.7 g/dL (33.0-37.0); Mean Corpuscular Hgb 31.5 pg (27.0-31.0); Mean Corpuscular Volume 99.5 fL (81.0-99.0); Mean Platelet Volume 10.6 fL (7.4-10.4); Nucleated Red Blood Cells % 0 %; Platelet Count 202 10^3/uL (130-400); Red Blood Cell Count 3.68 10^6/uL (4.20-5.40); Red Cell Dist. Width 13.9 % (11.5-14.5); White Blood Cell Count 6.7 10^3/uL (4.8-10.8)
[2024-05-06 16:15] LABS: ALT (SGPT) 20 U/L (0-35); AST (SGOT) 29 U/L (14-36); Albumin 4.3 g/dl (3.5-5.0); Alkaline Phosphatase 67 U/L (38-126); Blood Urea Nitrogen 32 mg/dl (7-17); Calcium 9.3 mg/dl (8.4-10.2); Carbon Dioxide 31 mmol/L (22-30); Chloride 101 mmol/L (98-107); Glucose 88 mg/dl (70-99); LDH 189 U/L (120-246); Potassium 4.1 mmol/L (3.5-5.1); Sodium 139 mmol/L (135-145); Total Bilirubin 0.7 mg/dl (0.2-1.3); eGFR 54.19
== END ==
LOC: HWLAB 13:34
PROVIDERS: ATTENDING PHYSICIAN Internal Medicine Hematology & Oncology; FAMILY PHYSICIAN Internal Medicine
DX: C82.58 Diffuse follicle center lymphoma, lymph nodes of multiple sites (principal); Z45.2 Encounter for adjustment and management of vascular access device
CPT/HCPCS: 36415; 80053; 83615; 85025

== ENCOUNTER → 2024-06-02 09:16 | Outpatient (REF) | payer MEDICARE, BC, SELFPAY | LOC: RCS 09:16 | PROVIDERS: ATTENDING PHYSICIAN Internal Medicine; FAMILY PHYSICIAN Internal Medicine | DX: I48.0 Paroxysmal atrial fibrillation (principal); I34.0 Nonrheumatic mitral (valve) insufficiency; I36.1 Nonrheumatic tricuspid (valve) insufficiency; T45.1X5D Adverse effect of antineoplastic and immunosuppressive drugs, subsequent encounter | CPT/HCPCS: 93306; 93356 ==

== ENCOUNTER → 2024-07-28 10:54 | Outpatient (REF) | payer MEDICARE, BC, SELFPAY ==
[2024-07-28 15:53] LABS: % Basophils 0.4 % (0-2); % Eosinophils 1.8 % (0-6); % Immature Granulocytes 0.1 % (0-0.5); % Lymphocytes 17.8 % (20.5-51.1); % Monocytes 11.9 % (1.7-9.3); Absolute Eosinophils 0.1 10^3/uL (0-0.7); Absolute Lymphocytes 1.2 10^3/uL (1.2-3.4); Absolute Monocytes 0.8 10^3/uL (0.1-0.6); Absolute Neutrophils 4.6 10^3/uL (1.4-6.5); Hematocrit 42.6 % (37.0-47.0); Hemoglobin 13.8 g/dL (12.0-16.0); Mean Corp Hgb Conc. 32.4 g/dL (33.0-37.0); Mean Corpuscular Hgb 30.3 pg (27.0-31.0); Mean Corpuscular Volume 93.6 fL (81.0-99.0); Mean Platelet Volume 10.4 fL (7.4-10.4); Nucleated Red Blood Cells % 0 %; Platelet Count 191 10^3/uL (130-400); Red Blood Cell Count 4.55 10^6/uL (4.20-5.40); Red Cell Dist. Width 11.9 % (11.5-14.5); White Blood Cell Count 6.7 10^3/uL (4.8-10.8)
[2024-07-28 16:06] LABS: ALT (SGPT) 24 U/L (0-35); AST (SGOT) 32 U/L (14-36); Albumin 4.7 g/dl (3.5-5.0); Alkaline Phosphatase 54 U/L (38-126); Blood Urea Nitrogen 41 mg/dl (7-17); Calcium 9.8 mg/dl (8.4-10.2); Carbon Dioxide 33 mmol/L (22-30); Chloride 98 mmol/L (98-107); Glucose 78 mg/dl (70-99); LDH 227 U/L (120-246); Potassium 4.1 mmol/L (3.5-5.1); Sodium 142 mmol/L (135-145); Total Bilirubin 0.8 mg/dl (0.2-1.3); Total Protein 6.3 g/dl (6.3-8.2); eGFR 43.54
== END ==
LOC: HWLAB 10:54
PROVIDERS: ATTENDING PHYSICIAN Internal Medicine Hematology & Oncology; FAMILY PHYSICIAN Internal Medicine
DX: C82.58 Diffuse follicle center lymphoma, lymph nodes of multiple sites (principal); Z45.2 Encounter for adjustment and management of vascular access device
CPT/HCPCS: 36415; 80053; 83615; 85025

== ENCOUNTER → 2024-10-19 07:58 | Outpatient (REF) | payer MEDICARE, BC, SELFPAY ==
[2024-10-19 09:23] LABS: % Basophils 0.8 % (0-2); % Eosinophils 3.3 % (0-6); % Immature Granulocytes 1.4 % (0-0.5); % Lymphocytes 14.8 % (20.5-51.1); % Monocytes 11.9 % (1.7-9.3); % Neutrophils 67.8 % (42.2-75.2); Absolute Basophils 0.1 10^3/uL (0-0.2); Absolute Eosinophils 0.2 10^3/uL (0-0.7); Absolute Immature Granulocytes 0.1 10^3/uL (0-0.05); Absolute Lymphocytes 1.1 10^3/uL (1.2-3.4); Absolute Monocytes 0.9 10^3/uL (0.1-0.6); Absolute Neutrophils 4.9 10^3/uL (1.4-6.5); Hematocrit 42.4 % (37.0-47.0); Hemoglobin 13.1 g/dL (12.0-16.0); Mean Corp Hgb Conc. 30.9 g/dL (33.0-37.0); Mean Corpuscular Hgb 30.5 pg (27.0-31.0); Mean Corpuscular Volume 98.8 fL (81.0-99.0); Mean Platelet Volume 10.4 fL (7.4-10.4); Nucleated Red Blood Cells % 0 %; Platelet Count 186 10^3/uL (130-400); Red Blood Cell Count 4.29 10^6/uL (4.20-5.40); Red Cell Dist. Width 14.1 % (11.5-14.5); White Blood Cell Count 7.2 10^3/uL (4.8-10.8)
[2024-10-19 10:18] LABS: ALT (SGPT) 25 U/L (0-35); AST (SGOT) 32 U/L (14-36); Albumin 4.7 g/dl (3.5-5.0); Alkaline Phosphatase 39 U/L (38-126); Blood Urea Nitrogen 32 mg/dl (7-17); Calcium 9.5 mg/dl (8.4-10.2); Carbon Dioxide 32 mmol/L (22-30); Chloride 101 mmol/L (98-107); Glucose 62 mg/dl (70-99); LDH 268 U/L (120-246); Potassium 4.7 mmol/L (3.5-5.1); Sodium 144 mmol/L (135-145); Total Bilirubin 0.6 mg/dl (0.2-1.3); Total Protein 6.2 g/dl (6.3-8.2); eGFR 43.27
== END ==
LOC: HWWDC 07:58
PROVIDERS: ATTENDING PHYSICIAN Obstetrics & Gynecology; FAMILY PHYSICIAN Internal Medicine; REFERRING PHYSICIAN Internal Medicine Hematology & Oncology
DX: Z12.31 Encounter for screening mammogram for malignant neoplasm of breast (principal); C82.58 Diffuse follicle center lymphoma, lymph nodes of multiple sites; Z45.2 Encounter for adjustment and management of vascular access device
CPT/HCPCS: 36415; 77063; 77067; 80053; 83615; 85025

== ENCOUNTER 2024-12-24 09:15 | Emergency (ER) | payer MEDICARE, BC, SELFPAY ==
[2024-12-24 09:19] VITALS: BP 99/80; BMI 21.8
--- NOTE | 2024-12-24 09:40 | ED.MUSCINJ ---
HPI-Injury
General
Chief Complaint: Soft Tissue Injury
Source: patient
Exam Limitations: none
Time Seen by Provider: 12/24/24 09:18
Nursing documentation reviewed up to this point in time: agreed with
History of Present Illness-Injury
Initial Injury comments:
pt is a 89 y/o F with h/o PAF on eliquis
had a skin tg or some skin lesion on her L lateral ankle region
it has been there for years
she does have a lot of varicosities in her legs/ankles/feet
this am she was walking and suddenly realized her ankle was bleeding.
she says it looked like it was spurting at times
she called 911 and they bandaged it
she feels fine, no symptoms
no pain, no lightheadedness
bleeding has not soaked through
Past History
Past History
ED Past Medical History: Arrthythmia (Atrial fib), Cancer (NonHodgkins Lymphoma) and HTN
ED Past Surgical History: Gynecological (Hysterectomy)
Social History
Tobacco: Non-smoker
Alcohol: Occasional
Drug: None
Personal:
Living: with family
Review of Systems
Review of Systems
Allergies reviewed?: Yes
All Other Systems: Not applicable
Phy Exam
Physical Exam
Physical Exam:
GENERAL: Alert , in no apparent distress, comfortable at rest
HEAD: NCAT
CV: 2+ DP PULSES B/L
NEUROLOGICAL: Alert and oriented, no focal neuro deficits, , 5/5 strength, sensation intact, ambulation slight limp right leg
SKIN: Warm and dry, multiple varicosities/spider veins in b/l LE and feet
small 'bubble' varicosity L lateral ankle posterior tot he mallelous with where it looks like the skin is slightly avulsed but the varicosity is not bleeding despite manipulation
there is no tenderness
MUSCULOSKELETAL: full ankle ROM
normal pulse
PSYCH: Normal and appropriate interaction.
Injury Course
Vital Signs
Blood pressure: 119/85
MDM/Problems Addressed
Differential Diagnosis Includes:
skin tag, laceration, varicose vein
MDM/Problems Addressed:
89 y/o F on eliquis
had a skin lesion overyling varicose vein on L ankle that suddenly was 'removed' or pulled off and then caused bleeding
the bleeding is controlled after EMS dressed it with gauze and kerlix
the dressing was not pressure dressing
she says it looks different that the lesion was there came off
i can see that the skin looks superficially avulsed overlying the varicose vein but destpie manipulation, it is not bleeding now
considered injection with lido with epi and a sturue but given t is not bleeding, will hold off
dressed with ointment/gel foam and kerlex and singh monitor for rebleeding
1030 - no bleeding
wrapped with tho wrap for support, not tightly
keep wrapped with kerlix for 2 days, remove tho at night
then get wet per usual
*Critical Care Note
Total Time (30-74mins, 75-104mins- exclusive of procedures): Not Applicable
ED Attending Note
-
Portions of this chart may have been created with voice recognition software.� Occasional wrong word or��sound alike� substitutions may have occurred due to the inherent limitations of voice recognition software.
Discharge Plan
Departure
Patient Disposition: Home (Routine Discharge)
Date of Disposition: 12/24/24
Time of Disposition: 10:23
Patient with high blood pressure during this ER visit?: No
Condition: Fair
Covid-19: Not Applicable
Discharge Problem:
Varicose veins of ankle
Instructions: Wound Care (DC)
Prescriptions:
No Action
torsemide 20 MG tablet
20 mg PO DAILY
rosuvastatin 5 MG tablet
10 mg PO DAILY
metoprolol tartrate 25 MG tablet
12.5 mg PO BID
Eliquis 2.5 MG tablet
2.5 mg PO BID
potassium chloride [Klor-Con M20] 20 MEQ tablet,ER particles/crystals
20 meq PO DAILY
amiodarone 100 mg Tablet
100 mg PO DAILY
ibandronate 150 mg Tablet
150 mg PO QMONTH
Visbiome 112.5 billion cell Capsule
1 cap PO DAILY
vitamin B complex Tablet
1 tab PO DAILY
calcium carbonate-vitamin D3 [Calcium 500 + D] 500 mg-10 mcg (400 unit) Tablet
1 tab PO DAILY
coQ10 (ubiquinol) 100 mg Capsule
100 mg PO DAILY
ondansetron HCl 4 mg Tablet
4 mg PO DAILY
pantoprazole 20 mg Tablet,Delayed Release (Dr/Ec)
20 mg PO DAILY
docusate sodium [Colace] 100 mg Capsule
100 mg PO DAILY
midodrine 2.5 mg Tablet
2.5 mg PO TID
Rx Instructions:
take with 5mg TID
therapeutic multivitamin Tablet
1 tab PO DAILY
midodrine 5 mg tablet
5 mg PO TID
gabapentin 100 mg capsule
100 mg PO TID
ceftriaxone 2 gram recon soln
2,000 mg IV Q12H
Rx Instructions:
through 04/14 for 37 days starting
acetaminophen [Tylenol Extra Strength] 500 mg tablet
500 mg PO TID PRN (Reason: Pain) Qty: 0 0RF
Referrals:
Dale Gonzales III, MD [Active] - Follow up in 1 week (VASCULAR)
Rosio Eagle DO [Family Provider] - Follow up in 2-3 days
Activity Restrictions/Additional Instructions:
LEAVE THIS DRESSING IN PLACE (YOU CAN REMOVE THE THO WRAP AT NIGHT BUT LEAVE THE WHITE DRESSING ON) AND PUT THE THO WRAP BACK ON
TRY TO KEEP THE ANKLE DRY UNTIL THURSDAY
IF IT STARTS BLEEDING HOLD PRESSURE AND WRAP
IF IT CONTINUES DESPITE THAT FOR 10-20 MINUTES, RETURN
SEE A VEIN SPECIALIST OR DERMATOLIGST.
Interventions
Interventions:
*Risk Screen - Suicide Last Done: 12/24/24 11:37
*General Assessment Last Done: 12/24/24 11:37
*Neglect/Abuse Screening Last Done: 12/24/24 11:37
ED- Fall Risk Assessment Last Done: 12/24/24 11:10
*ED COVID-19 Vaccine History Last Done: 12/24/24 11:37
*Nursing Disposition Last Done: 12/24/24 11:10
ED-Musculoskeletal Assessment Last Done: 12/24/24 11:37
ED-Skin Assessment Last Done: 12/24/24 11:37
Discharge Date and Time
Discharge Date/Time: 12/24/24 11:15
Print Language: KHMER
== END 2024-12-24 11:15 | disposition home or self-care (01) ==
LOC: EMR 09:15
PROVIDERS: EMERGENCY PHYSICIAN Emergency Medicine; FAMILY PHYSICIAN Internal Medicine
DX: I83.92 Asymptomatic varicose veins of left lower extremity (principal); L98.8 Other specified disorders of the skin and subcutaneous tissue; I10 Essential (primary) hypertension; I48.0 Paroxysmal atrial fibrillation; Z79.01 Long term (current) use of anticoagulants; Z85.72 Personal history of non-Hodgkin lymphomas
CPT/HCPCS: 99282

== ENCOUNTER → 2025-01-10 07:55 | Outpatient (REF) | payer MEDICARE, BC, SELFPAY | LOC: HWEVLT 07:55 | PROVIDERS: ATTENDING PHYSICIAN Radiology Diagnostic Radiology | DX: I83.892 Varicose veins of left lower extremity with other complications (principal) | CPT/HCPCS: 93971 ==

== ENCOUNTER → 2025-01-11 14:54 | Outpatient (REF) | payer MEDICARE, BC, SELFPAY | LOC: HWEVLT 14:54 | PROVIDERS: ATTENDING PHYSICIAN Radiology Diagnostic Radiology | DX: I83.892 Varicose veins of left lower extremity with other complications (principal) | CPT/HCPCS: 36471 ==

== ENCOUNTER → 2025-01-12 08:46 | Outpatient (REF) | payer MEDICARE, BC, SELFPAY ==
[2025-01-12 12:44] LABS: % Basophils 0.7 % (0-2); % Eosinophils 4.9 % (0-6); % Immature Granulocytes 4.4 % (0-0.5); % Lymphocytes 19.7 % (20.5-51.1); % Monocytes 12.6 % (1.7-9.3); % Neutrophils 57.7 % (42.2-75.2); Absolute Eosinophils 0.2 10^3/uL (0-0.7); Absolute Immature Granulocytes 0.2 10^3/uL (0-0.05); Absolute Lymphocytes 0.8 10^3/uL (1.2-3.4); Absolute Monocytes 0.5 10^3/uL (0.1-0.6); Absolute Neutrophils 2.5 10^3/uL (1.4-6.5); Hematocrit 39.9 % (37.0-47.0); Hemoglobin 13.2 g/dL (12.0-16.0); Mean Corp Hgb Conc. 33.1 g/dL (33.0-37.0); Mean Corpuscular Hgb 31.5 pg (27.0-31.0); Mean Corpuscular Volume 95.2 fL (81.0-99.0); Mean Platelet Volume 11.1 fL (7.4-10.4); Nucleated Red Blood Cells % 0 %; Platelet Count 133 10^3/uL (130-400); Red Blood Cell Count 4.19 10^6/uL (4.20-5.40); Red Cell Dist. Width 12.8 % (11.5-14.5); White Blood Cell Count 4.3 10^3/uL (4.8-10.8)
[2025-01-12 12:58] LABS: ALT (SGPT) 24 U/L (0-35); AST (SGOT) 31 U/L (14-36); Alkaline Phosphatase 56 U/L (38-126); Blood Urea Nitrogen 25 mg/dl (7-17); Calcium 9.3 mg/dl (8.4-10.2); Carbon Dioxide 29 mmol/L (22-30); Chloride 103 mmol/L (98-107); Glucose 84 mg/dl (70-99); HDL Cholesterol 61 mg/dl; LDH 304 U/L (120-246); LDL Cholesterol, Calculated 66 mg/dl; Potassium 4.1 mmol/L (3.5-5.1); Sodium 139 mmol/L (135-145); Total Bilirubin 0.7 mg/dl (0.2-1.3); Total Cholesterol 145 mg/dl (50-199); Total Protein 5.7 g/dl (6.3-8.2); Triglyceride 91 mg/dl (10-149); Very Low Density Lipoprotein 18 mg/dl (0-30); eGFR 48.03
[2025-01-12 13:24] LABS: TSH Reflex To Free T4 2.08 uIU/ml (0.47-4.68)
== END ==
LOC: HWLAB 08:46
PROVIDERS: ATTENDING PHYSICIAN Internal Medicine Hematology & Oncology; FAMILY PHYSICIAN Internal Medicine; REFERRING PHYSICIAN Internal Medicine
DX: I48.0 Paroxysmal atrial fibrillation (principal); Z79.899 Other long term (current) drug therapy; E78.00 Pure hypercholesterolemia, unspecified; C82.58 Diffuse follicle center lymphoma, lymph nodes of multiple sites; Z45.2 Encounter for adjustment and management of vascular access device
CPT/HCPCS: 36415; 80053; 80061; 83615; 84443; 85025

== ENCOUNTER → 2025-01-25 10:20 | Outpatient (REF) | payer MEDICARE, BC, SELFPAY | LOC: HWLAB 10:20 | PROVIDERS: ATTENDING PHYSICIAN Internal Medicine Hematology & Oncology; FAMILY PHYSICIAN Internal Medicine | DX: C82.58 Diffuse follicle center lymphoma, lymph nodes of multiple sites (principal); Z45.2 Encounter for adjustment and management of vascular access device | CPT/HCPCS: 36415; 82784 ==